=== PATIENT | male | born 1955 | race Caucasian/White ===

== ENCOUNTER 2019-01-26 09:06 | Inpatient (IN) ==
[2019-01-26 09:41] LABS: Basophils # (auto) 0.07 K/uL (0-0.2); Eosinophils # (auto) 0.21 K/uL (0-0.5); Eosinophils % (auto) 2.9 %; Hematocrit (blood only) 34.2 % (42-52); Hemoglobin 12.9 g/dL (14.0-18.0); Immature Granulocytes # (auto) 0.02 K/uL (0.00-0.02); Immature Granulocytes % (auto) 0.3 %; Lymphocytes # (auto) 2.03 K/uL (1.2-3.4); Mean Corpuscular Hemoglobin 31.9 pg (25-34); Mean Corpuscular Hgb Conc 37.7 g/dL (32-36); Mean Corpuscular Volume 84.4 fL (80-100); Mean Platelet Volume 10.2 fL (7.4-10.4); Monocytes % (auto) 9.7 %; Neutrophils # (auto) 4.21 K/uL (1.4-6.5); Neutrophils % (auto) 58.1 %; Platelet Count 150 K/uL (130-400); RDW Coefficient of Variation 14.1 % (11.5-14.5); RDW Standard Deviation 43.1 fL (36.4-46.3); Red Blood Count 4.05 M/uL (4.7-6.1); White Blood Count 7.24 K/uL (4.8-10.8)
--- NOTE | 2019-01-26 09:46 | Emergency Department Note ---
Entered by Angie Young acting as a scribe for Justin Sutton DO History of Present Illness General Chief complaint: Vomiting Stated complaint: DIZZY - THROWING UP Source: patient History of Present Illness Onset (ago): week(s) 2 Location: head Pain Consistency: + other (persistently) Quality: + other (dizziness) Exacerbated By: + movement (of head) Associated symptoms: + nausea/vomiting, + weakness (negative in arms and legs) and + other (positive increased sleeping; negative diarrhea; negative numbness in arms or legs); no chest pain and no shortness of breath Patient is a is a 63-year-old male with a past medical history of CVA and diabetes on Plavix who had a stroke in May. He notes that in between then he had a TAVR performed at [facility] in [place]. He has been dizzy persistently for the past 2 weeks which is worse with movement of his head. He was seen in the [facility] and diagnosed with another stroke. He notes that he has been very weak over the same time. He has been sleeping much more. The patient reports nausea and vomiting. He denies any chest pain shortness of breath or diarrhea. No other weakness or numbness in his arms or legs. Dizziness has been unchanged in any way since the systems. Home Medications Home Medications Medication Instructions Recorded Confirmed Type atorvastatin [Lipitor] 80 mg PO DAILY 01/26/19 01/26/19 History clopidogrel [Plavix] 75 mg PO DAILY 01/26/19 01/26/19 History fluoxetine 10 mg PO DAILY 01/26/19 01/26/19 History glyburide 2.5 mg PO BID 01/26/19 01/26/19 History hydralazine 50 mg PO TID 01/26/19 01/26/19 History meclizine 25 mg PO Q6H PRN 01/26/19 01/26/19 History metformin 500 mg PO BID 01/26/19 01/26/19 History metoprolol tartrate 25 mg PO BID 01/26/19 01/26/19 History risperidone 0.5 mg PO DAILY 01/26/19 01/26/19 History Allergies Allergy/AdvReac Type Severity Reaction Status Date / Time oxycodone Allergy Confusion Unverified 01/26/19 10:16 Past Med/Surg History Medical History Family History Mother Myocardial infarction Father Myocardial infarction Other No pertinent family history in first degree relatives Social History Preferred Language: Yoruba Communication Ability: Effective Beliefs That Will Affect Care: None Current Living Situation: Alone Other Information That Helps Us Care for You: No Feels Safe at Home: Yes Smoking Status: Former smoker Do You Dip or Chew Tobacco: No ; Number of Years Since Quit: 40 ; Second Hand Exposure: No ; Tobacco Cessation Education Requested by Patient: No Hx Alcohol Use: Yes Hx Substance Use: No Review of Systems See HPI for pertinent positives & negatives. and A total of 10 systems reviewed and were otherwise negative Physical Exam Vital Signs Vital Signs - 24 hr 01/26/19 09:12 01/26/19 09:23 01/26/19 09:30 Temperature 36.9 C Temperature Source Oral Sepsis Recent Fever Within 48 Hours No Sepsis New/Unexplained Change in Mental Status No Sepsis Action Taken by Nursing No Action Required Pulse Rate 77 Pulse Rate [Finger] 70 Respiratory Rate 20 16 Respiratory Effort / Characteristics Non-Labored Respiratory Depth Normal Blood Pressure 162/96 H Blood Pressure [Left Arm] 158/94 H Blood Pressure Mean 118 Blood Pressure Mean [Left Arm] 115 Pulse Oximetry 97 97 98 Oxygen Delivery Method Room Air Room Air Room Air 01/26/19 10:33 01/26/19 11:07 01/26/19 12:00 Temperature Temperature Source Sepsis Recent Fever Within 48 Hours Sepsis New/Unexplained Change in Mental Status Sepsis Action Taken by Nursing Pulse Rate 63 60 Pulse Rate [Finger] 74 Respiratory Rate 18 14 17 Respiratory Effort / Characteristics Respiratory Depth Blood Pressure 177/89 H Blood Pressure [Left Arm] 138/96 Blood Pressure Mean 118 Blood Pressure Mean [Left Arm] 110 Pulse Oximetry 99 95 98 Oxygen Delivery Method Room Air Room Air 01/26/19 12:30 01/26/19 13:00 01/26/19 13:30 Temperature Temperature Source Sepsis Recent Fever Within 48 Hours Sepsis New/Unexplained Change in Mental Status Sepsis Action Taken by Nursing Pulse Rate 67 59 L 62 Pulse Rate [Finger] Respiratory Rate 13 14 16 Respiratory Effort / Characteristics Respiratory Depth Blood Pressure 190/113 H 188/109 H 199/117 H Blood Pressure [Left Arm] Blood Pressure Mean 138 135 144 Blood Pressure Mean [Left Arm] Pulse Oximetry 98 97 98 Oxygen Delivery Method Room Air Room Air Room Air 01/26/19 13:41 Temperature Temperature Source Sepsis Recent Fever Within 48 Hours Sepsis New/Unexplained Change in Mental Status Sepsis Action Taken by Nursing Pulse Rate Pulse Rate [Finger] 57 L Respiratory Rate 20 Respiratory Effort / Characteristics Respiratory Depth Blood Pressure Blood Pressure [Left Arm] Blood Pressure Mean Blood Pressure Mean [Left Arm] Pulse Oximetry 98 Oxygen Delivery Method Room Air GENERAL: Sitting up in bed, talking in full sentences, alert, well appearing, well nourished, no distress, non-toxic EYE EXAM: normal conjunctiva PERRL and EOM's grossly intact OROPHARYNX: no exudate, no erythema, lips, buccal mucosa, and tongue normal and mucous membranes are moist NECK: supple, no nuchal rigidity, no adenopathy, non-tender LUNGS: Clear to auscultation. Normal chest wall mechanics HEART: no murmurs, S1 normal and S2 normal ABDOMEN: abdomen soft, minimal tenderness, normo-active bowel sounds, no masses, no rebound or guarding. BACK: Back is symmetrical on inspection and there is no deformity, no midline tenderness, no CVA tenderness. SKIN: no rashes and no bruising UPPER EXTREMITIES: upper extremities are grossly normal. LOWER EXTREMITIES: No pitting edema. NEURO EXAM: Normal sensorium, cranial nerves II-XII intact, normal speech, no weakness of arms, no weakness of legs. No drift. Finger to nose intact. Gross sensation intact. Course ED COURSE: Vital signs were reviewed and showed hypertensive. The patients medical record was reviewed The above diagnostic studies were performed and reviewed. ED treatments and interventions as stated above. 0939: The patient was evaluated in room B11B. A complete history and physical examination was performed. 1134: Upon reevaluation, the patient is resting comfortably. I discussed my findings with the patient and he understands and agrees with the treatment plan. Based on the patients age, coexisting illnesses, exam and lab findings the decision to treat as an inpatient was made. The patient remained stable while under my care. 1142: I discussed the case with Dr. [facility] Hospitalist who accepts the patient for further evaluation. Administered Medications Hydralazine HCl (Apresoline) 50 mg PO TID EUGENE Stop: 02/25/19 13:59 Last Admin: 01/26/19 13:44 Dose: 50 mg Documented by: [id number] Ioversol (Optiray 320 100ml) 93 ml IV ONCE PRN PRN Reason: Interaction Checking Stop: 01/30/19 10:55 Last Admin: 01/26/19 10:56 Dose: 93 ml Documented by: [id number] Metoprolol Tartrate (Lopressor) 25 mg PO BID EUGENE Stop: 02/25/19 13:24 Last Admin: 01/26/19 13:47 Dose: Not Given Documented by: [id number] Discontinued Medications Sodium Chloride (Nss 1000ml) 1,000 mls @ 999 mls/hr IV .Q1H1M ONE Stop: 01/26/19 12:33 Last Infusion: 01/26/19 13:00 Dose: 0 mls/hr Documented by: [id number] Admin: 01/26/19 11:41 Dose: 999 mls/hr Documented by: [id number] Medical Decision Making Differential Diagnosis Differential Diagnosis includes but is not limited to ischemic Stroke, hemorrhagic stroke, bells palsy, mass, neoplasm, migraine headache, seizure, subarachnoid hemorrhage, TIA, and transient global amnesia. Medical Records Attestation: I reviewed the patient's medical records. Home Medications Current Medication List: was personally reviewed by me Laboratory Data Attestation: I reviewed the patient's lab results. Result diagrams: 01/26/19 09:30 01/26/19 09:30 Lab Results 01/26/19 01/26/19 01/26/19 Range/Units 09:30 09:30 09:30 WBC 7.24 (4.8-10.8) K/uL RBC 4.05 L (4.7-6.1) M/uL Hgb 12.9 L (14.0-18.0) g/dL Hct 34.2 L (42-52) % MCV 84.4 (80-100) fL MCH 31.9 (25-34) pg MCHC 37.7 H (32-36) g/dL RDW Std Deviation 43.1 (36.4-46.3) fL RDW Coeff of Taina 14.1 (11.5-14.5) % Plt Count 150 (130-400) K/uL MPV 10.2 (7.4-10.4) fL Immature Gran % (Auto) 0.3 % Neut % (Auto) 58.1 % Lymph % (Auto) 28.0 % Ector % (Auto) 9.7 % Eos % (Auto) 2.9 % Baso % (Auto) 1.0 % Immature Gran # (Auto) 0.02 (0.00-0.02) K/uL Neut # (Auto) 4.21 (1.4-6.5) K/uL Lymph # (Auto) 2.03 (1.2-3.4) K/uL Ector # (Auto) 0.70 H (0.11-0.59) K/uL Eos # (Auto) 0.21 (0-0.5) K/uL Baso # (Auto) 0.07 (0-0.2) K/uL PT 10.8 (9.0-12.0) Seconds INR 1.1 (0.9-1.1) Sodium 135 L (136-145) mmol/L Potassium 4.6 (3.5-5.1) mmol/L Chloride 105 (98-107) mmol/L Carbon Dioxide 22 (21-32) mmol/L Anion Gap 8.0 (3-11) BUN 26 H (7-18) mg/dl Creatinine 1.28 (0.6-1.4) mg/dl Est Cr Clr Drug Dosing 60.6 ml/min Est GFR ( Amer) 67.6 Est GFR (Non-Af Amer) 58.3 BUN/Creatinine Ratio 20.4 H (10-20) Glucose 302 H* (70-99) mg/dl POC Glucose (70-99) Calcium 10.4 H (8.5-10.1) mg/dl Total Bilirubin 1.5 H (0.2-1) mg/dl AST 23 (15-37) U/L ALT 41 (12-78) U/L Alkaline Phosphatase 125 H (45-117) U/L Troponin I (0-0.045) ng/ml Total Protein 7.9 (6.4-8.2) gm/dl Albumin 4.1 (3.4-5.0) gm/dl Globulin 3.8 (2.5-4.0) gm/dl Albumin/Globulin Ratio 1.1 (0.9-2) Lipase 2391 H (73-393) U/L Beta-Hydroxybutyric Acd 1.92 (0.2-2.81) mg/dl Urine Color Urine Appearance (Clear) Urine pH (4.5-7.5) Ur Specific Cornelia (1.000-1.030) Urine Protein (Negative) Urine Glucose (UA) (Negative) Urine Ketones (Negative) Urine Blood (Negative) Urine Nitrite (Negative) Urine Bilirubin (Negative) Urine Urobilinogen (Negative) Ur Leukocyte Esterase (Negative) Urine WBC (Auto) (0-5) /hpf Urine RBC (Auto) (0-4) /hpf U Hyaline Cast (Auto) (0-5) /lpf U Epithel Cells (Auto) (0-5) /lpf Urine Bacteria (Auto) (Negative) 01/26/19 01/26/19 01/26/19 Range/Units 09:30 11:30 11:37 WBC (4.8-10.8) K/uL RBC (4.7-6.1) M/uL Hgb (14.0-18.0) g/dL Hct (42-52) % MCV (80-100) fL MCH (25-34) pg MCHC (32-36) g/dL RDW Std Deviation (36.4-46.3) fL RDW Coeff of Taina (11.5-14.5) % Plt Count (130-400) K/uL MPV (7.4-10.4) fL Immature Gran % (Auto) % Neut % (Auto) % Lymph % (Auto) % Ector % (Auto) % Eos % (Auto) % Baso % (Auto) % Immature Gran # (Auto) (0.00-0.02) K/uL Neut # (Auto) (1.4-6.5) K/uL Lymph # (Auto) (1.2-3.4) K/uL Ector # (Auto) (0.11-0.59) K/uL Eos # (Auto) (0-0.5) K/uL Baso # (Auto) (0-0.2) K/uL PT (9.0-12.0) Seconds INR (0.9-1.1) Sodium (136-145) mmol/L Potassium (3.5-5.1) mmol/L Chloride (98-107) mmol/L Carbon Dioxide (21-32) mmol/L Anion Gap (3-11) BUN (7-18) mg/dl Creatinine (0.6-1.4) mg/dl Est Cr Clr Drug Dosing ml/min Est GFR ( Amer) Est GFR (Non-Af Amer) BUN/Creatinine Ratio (10-20) Glucose (70-99) mg/dl POC Glucose 274 H (70-99) Calcium (8.5-10.1) mg/dl Total Bilirubin (0.2-1) mg/dl AST (15-37) U/L ALT (12-78) U/L Alkaline Phosphatase (45-117) U/L Troponin I < 0.015 (0-0.045) ng/ml Total Protein (6.4-8.2) gm/dl Albumin (3.4-5.0) gm/dl Globulin (2.5-4.0) gm/dl Albumin/Globulin Ratio (0.9-2) Lipase (73-393) U/L Beta-Hydroxybutyric Acd (0.2-2.81) mg/dl Urine Color Yellow Urine Appearance Clear (Clear) Urine pH 5.0 (4.5-7.5) Ur Specific Cornelia > 1.045 H (1.000-1.030) Urine Protein Trace H (Negative) Urine Glucose (UA) 3+ H (Negative) Urine Ketones Negative (Negative) Urine Blood Negative (Negative) Urine Nitrite Negative (Negative) Urine Bilirubin Negative (Negative) Urine Urobilinogen Negative (Negative) Ur Leukocyte Esterase Negative (Negative) Urine WBC (Auto) 1-5 (0-5) /hpf Urine RBC (Auto) 0-4 (0-4) /hpf U Hyaline Cast (Auto) 1-5 (0-5) /lpf U Epithel Cells (Auto) 10-20 H (0-5) /lpf Urine Bacteria (Auto) Negative (Negative) Imaging Data Radiologist's Impression: Radiology results as stated below per my review and the radiologist's interpretation: CT head/brain wo con CLINICAL HISTORY: Dizziness. History of prior stroke. COMPARISON STUDY: No previous studies for comparison. TECHNIQUE: Axial CT of the brain is performed from the vertex to the skull base. IV contrast was not administered for this examination. A dose lowering technique was utilized adhering to the principles of ALARA. CT DOSE: 537.48 mGy.cm FINDINGS: No intra or extra-axial mass lesions are visualized. There is no CT evidence of acute cortical infarction. There is no evidence of midline shift. There is no acute hemorrhage. There are patchy white matter hypodensities likely on a small vessel basis. Th ere is an old left temporal lobe infarct. There is no evidence of pathologic ventricular dilatation. There is no evidence of acute sinusitis. There are postsurgical changes of a right frontal craniotomy. IMPRESSION: 1. Postsurgical changes of a prior right frontal craniotomy 2. Old left temporal lobe infarct 3. No acute intracranial findings Electronically signed by: Romain Olvera M.D. 01/26/2019 10:[address] abd pelvis IV con only CLINICAL HISTORY: Vomiting. Pancreatitis. UPPER ABDOMINAL PAIN COMPARISON STUDY: None. TECHNIQUE: The patient was scanned in a dynamic helical fashion during intravenous administration of 93 cc of Optiray 320. A dose lowering technique was utilized adhering to the principles of ALARA. CT DOSE: 613.32 mGy.cm FINDINGS: Lower chest: There is an aortic valve replacement. There are no significant pleural effusions. There are a few tiny subpleural nodules. In a low risk patient no further follow-up is indicated. There is a left lower lobe calcified granuloma. Liver: The contrast-enhanced liver is normal in size, contour, and attenuation. There is no intrahepatic biliary ductal dilatation. The hepatic veins and portal veins are patent. Gallbladder: Unremarkable. Spleen: The spleen is borderline enlarged measuring 22.2 cm Pancreas: The pancreatic duct is at the upper limits of normal in diameter. There is a 19 mm low-density pancreatic head lesion. There is mild infiltration of the fat surrounding the pancreatic head consistent with pancreatitis. It is not possible to determine whether pancreatic head lesion is neoplastic or inflammatory. Endoscopic ultrasound should be considered in follow-up. Adrenal glands: Unremarkable. Kidneys: There are bilateral hypodense renal lesions consistent with cysts. In addition there is an area of subtle diminished attenuation involving the upper pole left kidney. Although indeterminate, this does not appear masslike. Short- term follow-up is however warranted. Bowel: There are no transition zones indicate bowel obstruction. There is no evidence of acute diverticulitis. The appendix appears normal. Peritoneum: There is no intraperitoneal free air or abdominal ascites. Vasculature: The abdominal aorta is normal in course and caliber. Adenopathy: None. Pelvic viscera: The bladder, and pelvic viscera are unremarkable. Skeletal structures: No destructive osseous lesions are seen. IMPRESSION: 1. Mild infiltration of the fat surrounding the pancreatic head, consistent with the clinical history of pancreatitis 2. 19 mm hypodense pancreatic head lesion, neoplastic versus inflammatory. GI consultation for consideration of endoscopic ultrasound follow-up recommended 3. Pancreatic duct at the upper limits of normal in diameter 4. Borderline splenomegaly 5. No evidence of bowel obstruction. No evidence of free air 6. Subtle nonmass-like area of decreased attenuation involving the upper pole of the left kidney. This finding is of uncertain significance. Likely diagnostic considerations include focal pyelonephritis, sequela of prior infarct, or less likely neoplastic process. This finding should be reevaluated on subsequent scans. Electronically signed by: Romani Olvera M.D. 01/26/2019 11:24 AM ECG Data Attestation: I personally reviewed and interpreted this ECG as follows: Indication: weakness Rate (beats per minute): 70 Rhythm: sinus rhythm Findings: + other (normal intervals), + RBBB and + left axis deviation; no PVC Comparison ECG Date: no prior available Blood Pressure Blood Pressure Findings: Elevated blood pressure Blood Pressure Disposition: further management by hospitalist CLAUDETTE Narrative Patient is a 63-year-old male with past medical history of 2 recent strokes who presents the ER for dizziness which is been present for the past 2 months. He was evaluated at [place] a month ago and diagnosed with a new stroke. He is completely neurologically intact at this time. He admits to abdominal pain and vomiting. He was remarkably hypertensive. IV was established blood work was obtained showed no significant leukocytosis or anemia. INR unremarkable. BMP with hyperglycemia 302. Patient was given IV fluids and this trended down to 231. Calcium was elevated at 10.4. Bilirubin was slightly elevated at 1.5. Troponin was negative. Beta hydroxybutyric acid was negative. Lipase was elevated at 2400. UA was negative. CT abdomen pelvis shows pancreatitis with a pancreatic head mass. Do question cancer with the elevation in calcium but unclear at this time. Patient was given IV fluids and updated bedside. He was discussed with the hospitalist and admitted for further work-up. Impression & Plan Pancreatitis, Dizziness, HTN (hypertension), CVA (cerebral vascular accident), Abnormal CT scan, kidney Discharge Plan Visit Data *Final* Discharge Date/Time: 01/26/19 14:55 Chief Complaint: Vomiting Stated Complaint: DIZZY - THROWING UP ED Provider: Justin Sutton Discharge Problem: Pancreatitis, Dizziness, HTN (hypertension), CVA (cerebral vascular accident), Abnormal CT scan, kidney Patient Disposition: Admitted As Inpatient Discharge Instructions Interventions: ED Discharge Assessment Last Done: 01/26/19 14:55 The scribe's documentation has been prepared under my direction and personally reviewed by me in its entirety. I confirm that the note above accurately reflects all work, treatment, procedures, and medical decision making performed by me.
--- NOTE | 2019-01-26 10:08 | CT Scan Report ---
CT head/brain wo con CLINICAL HISTORY: Dizziness. History of prior stroke. COMPARISON STUDY: No previous studies for comparison. TECHNIQUE: Axial CT of the brain is performed from the vertex to the skull base. IV contrast was not administered for this examination. A dose lowering technique was utilized adhering to the principles of ALARA. CT DOSE: 537.48 mGy.cm FINDINGS: No intra or extra-axial mass lesions are visualized. There is no CT evidence of acute cortical infarc tion. There is no evidence of midline shift. There is no acute hemorrhage. There are patchy white matter hypodensities likely on a small vessel basis. There is an old left temp oral lobe infarct. There is no evidence of pathologic ventricular dilatation. There is no evidence of acute sinusitis. There are postsurgical changes of a right frontal craniotomy . IMPRESSION: 1. Postsurgical changes of a prior right frontal craniotomy 2. Old left temporal lobe infarct 3. No acute intracranial findings Electronically signed by: Romain Olvera M.D. 01/26/2019 10:07 AM
[2019-01-26 10:25] LABS: Albumin Globulin Ratio 1.1 (0.9-2); Albumin Level 4.1 gm/dl (3.4-5.0); BUN Creatinine Ratio 20.4 (10-20); Bilirubin,Total 1.5 mg/dl (0.2-1); Calcium 10.4 mg/dl (8.5-10.1); Creatinine Clr Calc Pharmacy 60.6 ml/min; Est GFR (African American) 67.6; Est GFR (Non-African American) 58.3; Globulin 3.8 gm/dl (2.5-4.0); Potassium 4.6 mmol/L (3.5-5.1); Total Protein 7.9 gm/dl (6.4-8.2)
[2019-01-26 10:38] LABS: Beta-Hydroxybutyrate 1.92 mg/dl (0.2-2.81)
[2019-01-26] MEDS ORDERED: IOVERSOL 100ml IV PRN (10:56)
[2019-01-26 11:19] LABS: INR 1.1 (0.9-1.1); Prothrombin Time 10.8 Seconds (9.0-12.0)
--- NOTE | 2019-01-26 11:26 | CT Scan Report ---
CT abd pelvis IV con only CLINICAL HISTORY: Vomiting. Pancreatitis. UPPER ABDOMINAL PAIN COMPARISON STUDY: None. TECHNIQUE: The patient was scanned in a dynamic helical fashion during intravenous administration of 93 cc of Optiray 320. A dose lowering technique was utilized adhering to the principles of ALARA. CT DOSE: 613.32 mGy.cm FINDINGS: Lower chest: There is an aortic valve replacement. There are no significant pleural effusions. There are a few tiny subpleural nodules. In a low risk patient no further follow-up is indicated. There is a left lower lobe calcified granuloma. Liver: The contrast-enhanced liver is normal in size, contour, and attenuation. There is no intrahepa tic biliary ductal dilatation. The hepatic veins and portal veins are patent. Gallbladder: Unremarkable. Spleen: The spleen is borderline enlarged measuring 22.2 cm Pancreas: The pancreatic duct is at the upper limits of normal in diameter. There is a 19 mm low-dens ity pancreatic head lesion. There is mild infiltration of the fat surrounding the pancreatic head con sistent with pancreatitis. It is not possible to determine whether pancreatic head lesion is neoplast ic or inflammatory. Endoscopic ultrasound should be considered in follow-up. Adrenal glands: Unremarkable. Kidneys: There are bilateral hypodense renal lesions consistent with cysts. In addition there is an a rafael of subtle diminished attenuation involving the upper pole left kidney. Although indeterminate, th is does not appear masslike. Short-term follow-up is however warranted. Bowel: There are no transition zones indicate bowel obstruction. There is no evidence of acute divert iculitis. The appendix appears normal. Peritoneum: There is no intraperitoneal free air or abdominal ascites. Vasculature: The abdominal aorta is normal in course and caliber. Adenopathy: None. Pelvic viscera: The bladder, and pelvic viscera are unremarkable. Skeletal structures: No destructive osseous lesions are seen. IMPRESSION: 1. Mild infiltration of the fat surrounding the pancreatic head, consistent with the clinical history of pancreatitis 2. 19 mm hypodense pancreatic head lesion, neoplastic versus inflammatory. GI consultation for consid eration of endoscopic ultrasound follow-up recommended 3. Pancreatic duct at the upper limits of normal in diameter 4. Borderline splenomegaly 5. No evidence of bowel obstruction. No evidence of free air 6. Subtle nonmass-like area of decreased attenuation involving the upper pole of the left kidney. Thi s finding is of uncertain significance. Likely diagnostic considerations include focal pyelonephritis , sequela of prior infarct, or less likely neoplastic process. This finding should be reevaluated on subsequent scans. Electronically signed by: Romain Olvera M.D. 01/26/2019 11:24 AM
[2019-01-26] MEDS ORDERED: SODIUM CHLORIDE 0.9% 1000ML 1,000 ML IV ONE (11:33)
[2019-01-26 11:43] LABS: Appearance Urine Clear (Clear); Bacteria Urine Automated Negative (Negative); Bilirubin Urine Negative (Negative); Blood Urine Negative (Negative); Color Urine Yellow; Glucose Urine UA 3+ (Negative); Ketones Urine Negative (Negative); Leukocyte Esterase Urine Negative (Negative); Nitrite Urine Negative (Negative); Protein Urine Trace (Negative); RBC Urine Automated 0-4 /hpf (0-4); Specific Gravity Urine > 1.045 (1.000-1.030); Urobilinogen Urine Negative (Negative)
[2019-01-26] MEDS: HydrALAZINE TAB 50 MG TAB PO SCH ×2 (13:44→21:37)
[2019-01-26] MEDS: METOPROLOL TARTRATE 25 MG TAB PO SCH ×2 (13:47→21:54)
--- NOTE | 2019-01-26 13:47 | History & Physical Report ---
Date of Service January 26, 2019 Assessment & Plan (1) Pancreatitis: Noted on CTAP Lipase elevated c/w n/v, however pt has not had abd pain Head of pancreas appears abn, but cannot be well visualized and will need EUS once pt is improved NPO, IVF (2) Dizziness: Uncertain etiology Certainly could be a new CVA, however less likely given plavix use CT head neg for acute, MRI pending Possible Wernicke's given hx of consistent alcohol use Start thiamine, Mg, folic acid B1, B12 pending TSH pending Lyme pending--tested early on in sx but may have been prior to seroconversion t/c neuro c/s (3) HTN (hypertension): Labile in the ED in the setting of missed AM meds Could be contributing to sx given pt was in the 190s systolic Give AM meds now and monitor (4) Abnormal CT scan, kidney: UA WNL Renal US pending (5) CVA (cerebral vascular accident): Somewhat recent event, 05/2018 ?? repeat event last month Will continue plavix (6) Hyperlipidemia: holding statin (7) DM type 2 (diabetes mellitus, type 2): Holding PO meds given above SSI PRN A1c pending (8) Anxiety: continue home meds (9) DVT prophylaxis: SCDs History of Present Illness Primary Care Provider: NO PCP 63 y/o M with several complaints. Pt states he has been having progressive "dizziness" since November. He has difficulty describing this, but it is not lightheaded or double vision or room spinning. It is more of a feeling of pulling to the L. When he is sitting or lying, this does not happen, but with any standing or walking he feels unbalanced to the L. Denies any weakness in LE. Pt was sitting on the edge of the bed during discussion and he had this sensation while sitting, which was new. He moved to lying in the bed and in improved. He had no other sx with this other than mild nausea w/o emesis. Also during this time, pt has had worsening n/v. He states he eats without issue on some days, but several days a week he has n/v that is sometimes associated with PO intake and sometime not at all. His overall appetite and PO intake are low recently. He is unable to sleep. Pt denies fever, SOB, chest pain, abd pain, c/d, LE pain or swelling. No urinary sx or flank pain. Denies spotty vision or inability to see peripheral vision. Denies L sided neglect. Pt was dx with CVA 05/2018. These sx are different from that episode. He was put on plavix at that time and has been compliant. He was seen as an outpt in [place] about 2 weeks into the start of these new sx and was checked for Lyme, which was neg. He was admitted to [facility] last month for these sx and told that he had a stroke, but they did not know when. He states he had a CT but no MRI at that time. Pt missed his AM BP medications today. Pt states he has had no alcohol since he started having issues with dizziness. He denies heavy drinking, but does state that prior to this he would have 2 beers every day and has done that for many years. Prior to onset of sx, pt spent a lot of time outside. Allergies Allergy/AdvReac Type Severity Reaction Status Date / Time oxycodone Allergy Confusion Unverified 01/26/19 10:16 Home Medications Home Medications Medication Instructions Recorded Confirmed Type atorvastatin [Lipitor] 80 mg PO DAILY 01/26/19 01/26/19 History clopidogrel [Plavix] 75 mg PO DAILY 01/26/19 01/26/19 History fluoxetine 10 mg PO DAILY 01/26/19 01/26/19 History glyburide 2.5 mg PO BID 01/26/19 01/26/19 History hydralazine 50 mg PO TID 01/26/19 01/26/19 History meclizine 25 mg PO Q6H PRN 01/26/19 01/26/19 History metformin 500 mg PO BID 01/26/19 01/26/19 History metoprolol tartrate 25 mg PO BID 01/26/19 01/26/19 History risperidone 0.5 mg PO DAILY 01/26/19 01/26/19 History Past Med/Surg History Medical History CVA (cerebral vascular accident) Family History Mother Myocardial infarction Father Myocardial infarction Other No pertinent family history in first degree relatives Social History Feels Safe at Home: Yes Smoking Status: Former smoker Number of Years Since Quit: 40 ; Hx Alcohol Use: Yes (2 beers per day for many years, none x2 months) Hx Substance Use: No Review of Systems Review of Systems: Pertinent positives and negatives reviewed in HPI--all others negative Physical Exam Constitutional: WD/WN, vitals as above Eyes: normal visual rene by confrontation and + anicteric sclerae Neck: normal visual inspection and trachea midline Respiratory: normal respiratory effort, lungs clear to auscultation Cardiovascular: Rate/Rhythm: regular rate and regular rhythm Gastrointestinal (Abdomen): Inspection/Auscultation: abdomen not distended Percussion/Palpation: abdomen soft; abdomen nontender Musculoskeletal: Head/Neck/Chest: normocephalic and head atraumatic negative for edema, peripheral pulses intact Skin: no rashes, warm and dry Neurologic: CN's II-XI intact bilaterally and awake; not confused Speech / Cognition: normal speech While sitting on edge of bed, pt started to list to the L and had to balance himself Psychiatric: A+Ox3, euthymic affect Results & Data Vital Signs (Past 12 Hours) Vital Signs Temp Pulse Pulse Resp BP BP Pulse Ox 01/26/19 13:41 57 L 20 98 01/26/19 13:30 62 16 199/117 H 98 01/26/19 13:00 59 L 14 188/109 H 97 01/26/19 12:30 67 13 190/113 H 98 01/26/19 12:00 60 17 177/89 H 98 01/26/19 11:07 63 14 95 01/26/19 10:33 74 18 138/96 99 01/26/19 09:30 98 01/26/19 09:23 70 16 158/94 H 97 01/26/19 09:12 36.9 C 77 20 162/[address] head: old L temporal infarct Code Status & VTE Plan Code Status Full code VTE Prophylaxis Plan VTE Prophylaxis will be ordered: Yes PG Care Time/CCT Total # of Minutes Spent Total Time Spent with Patient: Total time spent is greater than 50% in coordination of care (as documented) at patient's floor/unit and/or counseling patient: (1) Pancreatitis Chronicity: acute
[2019-01-26] MEDS ORDERED: GLUCOSE 40% GEL 15 GM TUBE PO PRN (15:58)
[2019-01-26] MEDS ORDERED: CARBOHYDRATES FOR HYPOGLYCEMIA PO PRN (15:58)
[2019-01-26] MEDS ORDERED: GLUCAGON FOR INJ 1 MG VIAL SQ PRN (15:58)
[2019-01-26] MEDS ORDERED: DEXTROSE 50% 50 ML SYRINGE IV PRN (15:58)
[2019-01-26] MEDS ORDERED: THIAMINE HCL IV STA (15:58)
[2019-01-26] MEDS ORDERED: MAGNESIUM HYDROXIDE SUSP 30 ML UDC PO PRN (15:58)
[2019-01-26] MEDS ORDERED: MECLIZINE HCL 25 MG TAB PO PRN (15:58)
[2019-01-26] MEDS ORDERED: ACETAMINOPHEN 325 MG TAB PO PRN (15:58)
[2019-01-26] MEDS ORDERED: ONDANSETRON INJ 2 MG/ML 2 ML VIAL IV PRN (15:58)
[2019-01-26] MEDS ORDERED: GLUCOSE 10 TABS/TUBE PO PRN (15:58)
[2019-01-26] MEDS ORDERED: FOLIC ACID 1 MG in SYRINGE 9.8 ML IV ONE (16:15)
[2019-01-26] MEDS ORDERED: THIAMINE HCL 250 MG in SODIUM CHLORIDE 0.9% 50 ML IV ONE (16:15)
[2019-01-26 16:46] LABS: Lyme Ab IgG w/WB Rflx Negative (Negative); Lyme Ab IgM w/WB Rflx Negative (Negative)
--- NOTE | 2019-01-26 17:38 | Magnetic Resonance Report ---
MRI OF THE BRAIN WITHOUT CONTRAST CLINICAL HISTORY: dizziness COMPARISON STUDY: CT scan dated 01/26/2019 FINDINGS: Sagittal T1, axial diffusion, proton density and T2 weighted axial, coronal FLAIR, and axial T1-weigh geoffrey images were acquired. No intra or extra-axial mass lesions are visualized There is a 3 mm focus of restricted water diffusion within the right cerebellar hemisphere consistent with a tiny acute/subacute infarct. There is a 3 mm focus of restricted water diffusion within the l eft frontal white matter consistent with an acute/subacute infarct. There is a 3 mm focus of restrict ed water diffusion in the posterior aspect of the right external capsule, consistent with acute/subac layton infarct. The distribution raises the possibility of an embolic etiology. There is no evidence of ventricular dilatation. Proton density T2-weighted and FLAIR images reveal multiple old cerebellar infarcts. There is an old left temporal lobe infarct. There is an old left occipital lobe infarct. There is right frontal encep halomalacia subjacent to a craniotomy site. There is an old lacunar infarct in the right basal gangli a. There are scattered foci of increased T2 signal within the white matter likely small vessel basis. There are no abnormal flow voids. IMPRESSION: 1. Areas of old infarction/encephalomalacia involving the left occipital lobe and left temporal lobe 2. Evidence of prior right frontal craniotomy with subjacent right frontal lobe encephalomalacia 3. Multiple old lacunar infarcts most pronounced in the cerebellar hemispheres 4. Tiny acute/subacute infarcts involving the right cerebellar hemisphere, left frontal white matter, and posterior limb of the right external capsule Electronically signed by: Romain Olvera M.D. 01/26/2019 5:37 PM
--- NOTE | 2019-01-26 17:50 | Ultrasound Report ---
EXAMINATION: RENAL ULTRASOUND CLINICAL HISTORY: Abnormal CT scan COMPARISON STUDY: CT scan dated 01/26/2019 FINDINGS: The right kidney measures 10.5 cm. The left kidney measures 11.1 cm. There is no evidence of hydronephrosis. There is an 11 mm mid pole left renal cyst. This appears to contain a septation. No upper pole abnormalities are visualized. As stated in the prior CT scan report, the finding descri bed is best evaluated on a subsequent CT scan. The bladder was nonvisualized and likely decompressed. IMPRESSION : 1. Septated 11 mm left renal cyst 2. No hydronephrosis 3. No upper pole left renal abnormalities identified to correspond to the subtle CT findings Electronically signed by: Romain Olvera M.D. 01/26/2019 5:49 PM
[2019-01-26] MEDS: MAGNESIUM SULFATE / D5W 1 GM/100 ML BAG IV SCH ×2 (18:19→19:48)
[2019-01-26] MEDS: SODIUM CHLORIDE 0.45 % 1,000 ML IV SCH (18:20)
[2019-01-26] MEDS: INSULIN ASPART 100 UNITS/ML 3 ML PEN SC SCH ×2 (18:20→21:37)
[2019-01-27] MEDS: SODIUM CHLORIDE 0.45 % 1,000 ML IV SCH (04:02)
--- NOTE | 2019-01-27 07:50 | Family Medicine Progress Note ---
Date of Service January 27, 2019 Assessment & Plan (1) Pancreatitis: #Pancreatitis: Lipase elevated to 2300 on admission, admission CT abdomen pelvis demonstrated pancreatitis. This is consistent with the patient's nausea and vomiting, patient was not endorsing significant abdominal pain on admission. Endorses epigastric pain on palpation. Head of pancreas appears abnormal, but cannot be well visualized and will need EUS once pt is improved -NPO, IVF with LR at 150 -Pain control as needed with acetaminophen #Abnormal pancreatic findings on CT Admission CT abdomen pelvis demonstrated abnormal appearing head of the pancreas, was not well-visualized, concerning for benign mass versus malignancy. -Consulted gastroenterology for recommendations regarding mass -Gallbladder ultrasound pending #Dizziness: Uncertain etiology, with patient's prior history certainly could be a new CVA, however less likely given plavix use. Lyme negative TSH within normal limits. CT head neg for acute finding.MRI demonstrates areas of old infarction and encephalomalacia involving the left occipital lobe and left temporal lobe. Evidence of a prior right frontal craniotomy with subjacent right frontoparietal lobe encephalomalacia. Multiple old lacunar infarcts most pronounced in the cerebellar hemispheres. Tiny acute subacute infarcts involving the right cerebellar hemisphere, left frontal white matter, and posterior limb of the right internal capsule. -Given patient's presentation and MRI findings consulted neurology appreciate recommendations -Patient has a history of chronic alcohol use start thiamine, Mg, folic acid -B1 pending -B12 low normal 1000 mcg IM then 1000 mcg daily oral #CVA (cerebral vascular accident): Somewhat recent event, 05/2018, recently hospitalized in 2 boy and diagnosed with a repeat event. Given current presentation, and medical history there is a concern that he has had a repeat acute event. -Neuro consulted appreciate recommendations -continue plavix -Complete stroke work-up, obtain echo, obtain carotid Dopplers #HTN (hypertension): Labile in the ED in the setting of missed AM medsCould be contributing to sx given pt was in the 190s systolic -Patient skipped meds yesterday, this morning blood pressure responded to meds -Continue home hydralazine 50 p.o. 3 times daily, metoprolol 25 mg p.o. twice daily #Abnormal CT scan, kidney: UA WNL, renal ultrasound demonstrated 11 mm cyst otherwise within normal limits #Hyperlipidemia: holding statin in setting of pancreatitis #DM type 2 (diabetes mellitus, type 2): Holding PO meds given above -A1c 7.4 -Glycemic consult placed #Anxiety: continue home meds FENa: N.p.o. for now, will advance diet tomorrow Code Status: Full code DVT PPX: SCDS PT/OT: Not indicated Dispo: PCU Alexandre Bowers MD PGY 2, FCM This chart was completed utilizing [employer] voice recognition software. Grammatical errors, random word insertions, pronoun errors, and in complete sentences are an occasional consequence of the system. Any questions or concerns about the content, text, or information contained within the body of this dictation should be addressed directly to the physician for clarification. Supervising Physician Co-Signing Physician Notes Patient seen and examined with Dr. Bowers. I agree with their exam findings, review of systems, assessment and plan. I have personally reviewed the lab work and imaging from today. patient c/o some nausea but no abdominal pain, does not have an appetite, no fever still with some leaning to the left, has been going on for weeks, denies vertigo, just off balance reviewed MRI brain with findings of acute/subacute CVA in both hemispheres d/w Dr. Holcomb with neurology, she is concerned about embolic strokes given bilateral findings on MRI, she recommends stroke work up appreciate note from Dr. Payne, plan for EUS as outpatient Exam: AAOx3, NAD, lungs CTA bilaterally, normal respiratory effort, heart regular S1 and S2, no murmurs, abdomen soft, NT, ND, +BS no focal neurological deficits on exam - Acute/Subacute ischemic CVA, based on MRI brain findings stroke work up with lipid profile, echo, carotid doppler consider embolic source, may need outpatient monitoring if no afib seen while admitted - Acute pancreatitis: could be due to pancreatic lesion in head of pancreas no gall stones, denies heavy alcohol use but could be dishonest pancreatitis improving slowly, advance diet as tolerated - Pancreatic head lesion: will arrange for EUS outpatient Subjective Patient laying in bed this morning in no acute distress. Patient reports doing well overnight, has been n.p.o., slept well, voiding, stooling. Patient reports the subjective symptoms that caused him to present have improved significantly. He is no longer having significant abdominal pain, and his neuro symptoms are not as severe. Patient is eager for discharge. Acute concerns are related to brain imaging finding, and neurological symptoms otherwise,\ all questions answered Physical Exam Physical Exam: General: No acute distress HEENT: Normocephalic atraumatic Neck: Lots of extra skin Cardiac: Regular rate and rhythm, I did not appreciate any significant murmurs rubs or gallops, negative calf tenderness, negative pedal edema Respiratory: Clear to auscultation bilaterally with symmetrical chest rise I do not appreciate significant wheezes, rales, rhonchi GI: Bowel sounds present, tender to palpation in the epigastric region, otherwise nontender nondistended MSK: Moves all extremities Skin: Warm, dry, intact Neuro: Alert and oriented x3, did not know the building he was in, EOMI, PERRLA. CN II through XII grossly intact, Romberg positive, finger-nose intact, [id number] intact, some lag with rapid alternating movements, generally motor and sensory function intact, question whether is there is some element of cognitive delay Psych: Calm, cooperative Results & Data Vital Signs (Past 12 Hours) Vital Signs Temp Pulse Pulse Resp BP Pulse Ox 01/27/19 07:04 36.7 C 56 L 18 151/78 H 97 01/27/19 03:22 36.5 C 67 18 163/90 H 98 01/27/19 00:00 58 L 01/26/19 23:22 36.4 C L 57 L 19 151/83 H 96 Laboratory Results 01/27/19 01/27/19 01/27/19 Range/Units 07:09 07:05 07:05 WBC Pending (4.8-10.8) K/uL RBC Pending (4.7-6.1) M/uL Hgb Pending (14.0-18.0) g/dL Hct Pending (42-52) % MCV Pending (80-100) fL MCH Pending (25-34) pg MCHC Pending (32-36) g/dL RDW Std Deviation (36.4-46.3) fL RDW Coeff of [place] (11.5-14.5) % Plt Count Pending (130-400) K/uL MPV (7.4-10.4) fL Immature Gran % (Auto) % Neut % (Auto) % Lymph % (Auto) % [place] % (Auto) % Eos % (Auto) % Baso % (Auto) % Immature Gran # (Auto) (0.00-0.02) K/uL Neut # (Auto) (1.4-6.5) K/uL Lymph # (Auto) (1.2-3.4) K/uL [place] # (Auto) (0.11-0.59) K/uL Eos # (Auto) (0-0.5) K/uL Baso # (Auto) (0-0.2) K/uL PT (9.0-12.0) Seconds INR (0.9-1.1) Sodium Pending (136-145) mmol/L Potassium Pending (3.5-5.1) mmol/L Chloride Pending (98-107) mmol/L Carbon Dioxide Pending (21-32) mmol/L Anion Gap Pending (3-11) BUN Pending (7-18) mg/dl Creatinine Pending (0.6-1.4) mg/dl Est Cr Clr Drug Dosing Pending ml/min Est GFR ( Amer) Pending Est GFR (Non-Af Amer) Pending BUN/Creatinine Ratio Pending (10-20) Glucose Pending (70-99) mg/dl POC Glucose 238 H (70-99) Estimat Average Glucose mg/dl Hemoglobin A1c (4.5-5.6) % Calcium Pending (8.5-10.1) mg/dl Total Bilirubin Pending (0.2-1) mg/dl AST Pending (15-37) U/L ALT Pending (12-78) U/L Alkaline Phosphatase Pending (45-117) U/L Troponin I (0-0.045) ng/ml Total Protein Pending (6.4-8.2) gm/dl Albumin Pending (3.4-5.0) gm/dl Globulin Pending (2.5-4.0) gm/dl Albumin/Globulin Ratio Pending (0.9-2) Lipase Pending (73-393) U/L Whole Bld Vitamin B1 Vitamin B12 Beta-Hydroxybutyric Acd (0.2-2.81) mg/dl TSH (0.300-4.500) uIu/ml Urine Color Urine Appearance (Clear) Urine pH (4.5-7.5) Ur Specific [place] (1.000-1.030) Urine Protein (Negative) Urine Glucose (UA) (Negative) Urine Ketones (Negative) Urine Blood (Negative) Urine Nitrite (Negative) Urine Bilirubin (Negative) Urine Urobilinogen (Negative) Ur Leukocyte Esterase (Negative) Urine WBC (Auto) (0-5) /hpf Urine RBC (Auto) (0-4) /hpf U Hyaline Cast (Auto) (0-5) /lpf U Epithel Cells (Auto) (0-5) /lpf Urine Bacteria (Auto) (Negative) Lyme Disease IgG Ab (Negative) Lyme Disease IgM Ab (Negative) 01/27/19 01/27/19 01/27/19 Range/Units 07:05 07:05 07:05 WBC (4.8-10.8) K/uL RBC (4.7-6.1) M/uL Hgb (14.0-18.0) g/dL Hct (42-52) % MCV (80-100) fL MCH (25-34) pg MCHC (32-36) g/dL RDW Std Deviation (36.4-46.3) fL RDW Coeff of [place] (11.5-14.5) % Plt Count (130-400) K/uL MPV (7.4-10.4) fL Immature Gran % (Auto) % Neut % (Auto) % Lymph % (Auto) % [place] % (Auto) % Eos % (Auto) % Baso % (Auto) % Immature Gran # (Auto) (0.00-0.02) K/uL Neut # (Auto) (1.4-6.5) K/uL Lymph # (Auto) (1.2-3.4) K/uL [place] # (Auto) (0.11-0.59) K/uL Eos # (Auto) (0-0.5) K/uL Baso # (Auto) (0-0.2) K/uL PT (9.0-12.0) Seconds INR (0.9-1.1) Sodium (136-145) mmol/L Potassium (3.5-5.1) mmol/L Chloride (98-107) mmol/L Carbon Dioxide (21-32) mmol/L Anion Gap (3-11) BUN (7-18) mg/dl Creatinine (0.6-1.4) mg/dl Est Cr Clr Drug Dosing ml/min Est GFR ( Amer) Est GFR (Non-Af Amer) BUN/Creatinine Ratio (10-20) Glucose (70-99) mg/dl POC Glucose (70-99) Estimat Average Glucose 166 mg/dl Hemoglobin A1c 7.4 H (4.5-5.6) % Calcium (8.5-10.1) mg/dl Total Bilirubin (0.2-1) mg/dl AST (15-37) U/L ALT (12-78) U/L Alkaline Phosphatase (45-117) U/L Troponin I (0-0.045) ng/ml Total Protein (6.4-8.2) gm/dl Albumin (3.4-5.0) gm/dl Globulin (2.5-4.0) gm/dl Albumin/Globulin Ratio (0.9-2) Lipase (73-393) U/L Whole Bld Vitamin B1 Vitamin B12 Pending Beta-Hydroxybutyric Acd (0.2-2.81) mg/dl TSH 1.520 (0.300-4.500) uIu/ml Urine Color Urine Appearance (Clear) Urine pH (4.5-7.5) Ur Specific [place] (1.000-1.030) Urine Protein (Negative) Urine Glucose (UA) (Negative) Urine Ketones (Negative) Urine Blood (Negative) Urine Nitrite (Negative) Urine Bilirubin (Negative) Urine Urobilinogen (Negative) Ur Leukocyte Esterase (Negative) Urine WBC (Auto) (0-5) /hpf Urine RBC (Auto) (0-4) /hpf U Hyaline Cast (Auto) (0-5) /lpf U Epithel Cells (Auto) (0-5) /lpf Urine Bacteria (Auto) (Negative) Lyme Disease IgG Ab (Negative) Lyme Disease IgM Ab (Negative) 01/26/19 01/26/19 01/26/19 Range/Units 20:29 18:06 16:15 WBC (4.8-10.8) K/uL RBC (4.7-6.1) M/uL Hgb (14.0-18.0) g/dL Hct (42-52) % MCV (80-100) fL MCH (25-34) pg MCHC (32-36) g/dL RDW Std Deviation (36.4-46.3) fL RDW Coeff of [place] (11.5-14.5) % Plt Count (130-400) K/uL MPV (7.4-10.4) fL Immature Gran % (Auto) % Neut % (Auto) % Lymph % (Auto) % [place] % (Auto) % Eos % (Auto) % Baso % (Auto) % Immature Gran # (Auto) (0.00-0.02) K/uL Neut # (Auto) (1.4-6.5) K/uL Lymph # (Auto) (1.2-3.4) K/uL [place] # (Auto) (0.11-0.59) K/uL Eos # (Auto) (0-0.5) K/uL Baso # (Auto) (0-0.2) K/uL PT (9.0-12.0) Seconds INR (0.9-1.1) Sodium (136-145) mmol/L Potassium (3.5-5.1) mmol/L Chloride (98-107) mmol/L Carbon Dioxide (21-32) mmol/L Anion Gap (3-11) BUN (7-18) mg/dl Creatinine (0.6-1.4) mg/dl Est Cr Clr Drug Dosing ml/min Est GFR ( Amer) Est GFR (Non-Af Amer) BUN/Creatinine Ratio (10-20) Glucose (70-99) mg/dl POC Glucose 234 H 215 H 231 H (70-99) Estimat Average Glucose mg/dl Hemoglobin A1c (4.5-5.6) % Calcium (8.5-10.1) mg/dl Total Bilirubin (0.2-1) mg/dl AST (15-37) U/L ALT (12-78) U/L Alkaline Phosphatase (45-117) U/L Troponin I (0-0.045) ng/ml Total Protein (6.4-8.2) gm/dl Albumin (3.4-5.0) gm/dl Globulin (2.5-4.0) gm/dl Albumin/Globulin Ratio (0.9-2) Lipase (73-393) U/L Whole Bld Vitamin B1 Vitamin B12 Beta-Hydroxybutyric Acd (0.2-2.81) mg/dl TSH (0.300-4.500) uIu/ml Urine Color Urine Appearance (Clear) Urine pH (4.5-7.5) Ur Specific [place] (1.000-1.030) Urine Protein (Negative) Urine Glucose (UA) (Negative) Urine Ketones (Negative) Urine Blood (Negative) Urine Nitrite (Negative) Urine Bilirubin (Negative) Urine Urobilinogen (Negative) Ur Leukocyte Esterase (Negative) Urine WBC (Auto) (0-5) /hpf Urine RBC (Auto) (0-4) /hpf U Hyaline Cast (Auto) (0-5) /lpf U Epithel Cells (Auto) (0-5) /lpf Urine Bacteria (Auto) (Negative) Lyme Disease IgG Ab (Negative) Lyme Disease IgM Ab (Negative) 01/26/19 01/26/19 01/26/19 Range/Units 16:15 11:37 11:30 WBC (4.8-10.8) K/uL RBC (4.7-6.1) M/uL Hgb (14.0-18.0) g/dL Hct (42-52) % MCV (80-100) fL MCH (25-34) pg MCHC (32-36) g/dL RDW Std Deviation (36.4-46.3) fL RDW Coeff of [place] (11.5-14.5) % Plt Count (130-400) K/uL MPV (7.4-10.4) fL Immature Gran % (Auto) % Neut % (Auto) % Lymph % (Auto) % [place] % (Auto) % Eos % (Auto) % Baso % (Auto) % Immature Gran # (Auto) (0.00-0.02) K/uL Neut # (Auto) (1.4-6.5) K/uL Lymph # (Auto) (1.2-3.4) K/uL [place] # (Auto) (0.11-0.59) K/uL Eos # (Auto) (0-0.5) K/uL Baso # (Auto) (0-0.2) K/uL PT (9.0-12.0) Seconds INR (0.9-1.1) Sodium (136-145) mmol/L Potassium (3.5-5.1) mmol/L Chloride (98-107) mmol/L Carbon Dioxide (21-32) mmol/L Anion Gap (3-11) BUN (7-18) mg/dl Creatinine (0.6-1.4) mg/dl Est Cr Clr Drug Dosing ml/min Est GFR ( Amer) Est GFR (Non-Af Amer) BUN/Creatinine Ratio (10-20) Glucose (70-99) mg/dl POC Glucose 274 H (70-99) Estimat Average Glucose mg/dl Hemoglobin A1c (4.5-5.6) % Calcium (8.5-10.1) mg/dl Total Bilirubin (0.2-1) mg/dl AST (15-37) U/L ALT (12-78) U/L Alkaline Phosphatase (45-117) U/L Troponin I (0-0.045) ng/ml Total Protein (6.4-8.2) gm/dl Albumin (3.4-5.0) gm/dl Globulin (2.5-4.0) gm/dl Albumin/Globulin Ratio (0.9-2) Lipase (73-393) U/L Whole Bld Vitamin B1 Pending Vitamin B12 Beta-Hydroxybutyric Acd (0.2-2.81) mg/dl TSH (0.300-4.500) uIu/ml Urine Color Yellow Urine Appearance Clear (Clear) Urine pH 5.0 (4.5-7.5) Ur Specific [place] > 1.045 H (1.000-1.030) Urine Protein Trace H (Negative) Urine Glucose (UA) 3+ H (Negative) Urine Ketones Negative (Negative) Urine Blood Negative (Negative) Urine Nitrite Negative (Negative) Urine Bilirubin Negative (Negative) Urine Urobilinogen Negative (Negative) Ur Leukocyte Esterase Negative (Negative) Urine WBC (Auto) 1-5 (0-5) /hpf Urine RBC (Auto) 0-4 (0-4) /hpf U Hyaline Cast (Auto) 1-5 (0-5) /lpf U Epithel Cells (Auto) 10-20 H (0-5) /lpf Urine Bacteria (Auto) Negative (Negative) Lyme Disease IgG Ab (Negative) Lyme Disease IgM Ab (Negative) 01/26/19 01/26/19 01/26/19 Range/Units 09:30 09:30 09:30 WBC (4.8-10.8) K/uL RBC (4.7-6.1) M/uL Hgb (14.0-18.0) g/dL Hct (42-52) % MCV (80-100) fL MCH (25-34) pg MCHC (32-36) g/dL RDW Std Deviation (36.4-46.3) fL RDW Coeff of [place] (11.5-14.5) % Plt Count (130-400) K/uL MPV (7.4-10.4) fL Immature Gran % (Auto) % Neut % (Auto) % Lymph % (Auto) % [place] % (Auto) % Eos % (Auto) % Baso % (Auto) % Immature Gran # (Auto) (0.00-0.02) K/uL Neut # (Auto) (1.4-6.5) K/uL Lymph # (Auto) (1.2-3.4) K/uL [place] # (Auto) (0.11-0.59) K/uL Eos # (Auto) (0-0.5) K/uL Baso # (Auto) (0-0.2) K/uL PT 10.8 (9.0-12.0) Seconds INR 1.1 (0.9-1.1) Sodium (136-145) mmol/L Potassium (3.5-5.1) mmol/L Chloride (98-107) mmol/L Carbon Dioxide (21-32) mmol/L Anion Gap (3-11) BUN (7-18) mg/dl Creatinine (0.6-1.4) mg/dl Est Cr Clr Drug Dosing ml/min Est GFR ( Amer) Est GFR (Non-Af Amer) BUN/Creatinine Ratio (10-20) Glucose (70-99) mg/dl POC Glucose (70-99) Estimat Average Glucose mg/dl Hemoglobin A1c (4.5-5.6) % Calcium (8.5-10.1) mg/dl Total Bilirubin (0.2-1) mg/dl AST (15-37) U/L ALT (12-78) U/L Alkaline Phosphatase (45-117) U/L Troponin I < 0.015 (0-0.045) ng/ml Total Protein (6.4-8.2) gm/dl Albumin (3.4-5.0) gm/dl Globulin (2.5-4.0) gm/dl Albumin/Globulin Ratio (0.9-2) Lipase (73-393) U/L Whole Bld Vitamin B1 Vitamin B12 Beta-Hydroxybutyric Acd (0.2-2.81) mg/dl TSH (0.300-4.500) uIu/ml Urine Color Urine Appearance (Clear) Urine pH (4.5-7.5) Ur Specific [place] (1.000-1.030) Urine Protein (Negative) Urine Glucose (UA) (Negative) Urine Ketones (Negative) Urine Blood (Negative) Urine Nitrite (Negative) Urine Bilirubin (Negative) Urine Urobilinogen (Negative) Ur Leukocyte Esterase (Negative) Urine WBC (Auto) (0-5) /hpf Urine RBC (Auto) (0-4) /hpf U Hyaline Cast (Auto) (0-5) /lpf U Epithel Cells (Auto) (0-5) /lpf Urine Bacteria (Auto) (Negative) Lyme Disease IgG Ab Negative (Negative) Lyme Disease IgM Ab Negative (Negative) 01/26/19 01/26/19 Range/Units 09:30 09:30 WBC 7.24 (4.8-10.8) K/uL RBC 4.05 L (4.7-6.1) M/uL Hgb 12.9 L (14.0-18.0) g/dL Hct 34.2 L (42-52) % MCV 84.4 (80-100) fL MCH 31.9 (25-34) pg MCHC 37.7 H (32-36) g/dL RDW Std Deviation 43.1 (36.4-46.3) fL RDW Coeff of [place] 14.1 (11.5-14.5) % Plt Count 150 (130-400) K/uL MPV 10.2 (7.4-10.4) fL Immature Gran % (Auto) 0.3 % Neut % (Auto) 58.1 % Lymph % (Auto) 28.0 % [place] % (Auto) 9.7 % Eos % (Auto) 2.9 % Baso % (Auto) 1.0 % Immature Gran # (Auto) 0.02 (0.00-0.02) K/uL Neut # (Auto) 4.21 (1.4-6.5) K/uL Lymph # (Auto) 2.03 (1.2-3.4) K/uL [place] # (Auto) 0.70 H (0.11-0.59) K/uL Eos # (Auto) 0.21 (0-0.5) K/uL Baso # (Auto) 0.07 (0-0.2) K/uL PT (9.0-12.0) Seconds INR (0.9-1.1) Sodium 135 L (136-145) mmol/L Potassium 4.6 (3.5-5.1) mmol/L Chloride 105 (98-107) mmol/L Carbon Dioxide 22 (21-32) mmol/L Anion Gap 8.0 (3-11) BUN 26 H (7-18) mg/dl Creatinine 1.28 (0.6-1.4) mg/dl Est Cr Clr Drug Dosing 60.6 ml/min Est GFR ( Amer) 67.6 Est GFR (Non-Af Amer) 58.3 BUN/Creatinine Ratio 20.4 H (10-20) Glucose 302 H* (70-99) mg/dl POC Glucose (70-99) Estimat Average Glucose mg/dl Hemoglobin A1c (4.5-5.6) % Calcium 10.4 H (8.5-10.1) mg/dl Total Bilirubin 1.5 H (0.2-1) mg/dl AST 23 (15-37) U/L ALT 41 (12-78) U/L Alkaline Phosphatase 125 H (45-117) U/L Troponin I (0-0.045) ng/ml Total Protein 7.9 (6.4-8.2) gm/dl Albumin 4.1 (3.4-5.0) gm/dl Globulin 3.8 (2.5-4.0) gm/dl Albumin/Globulin Ratio 1.1 (0.9-2) Lipase 2391 H (73-393) U/L Whole Bld Vitamin B1 Vitamin B12 Beta-Hydroxybutyric Acd 1.92 (0.2-2.81) mg/dl TSH (0.300-4.500) uIu/ml Urine Color Urine Appearance (Clear) Urine pH (4.5-7.5) Ur Specific [place] (1.000-1.030) Urine Protein (Negative) Urine Glucose (UA) (Negative) Urine Ketones (Negative) Urine Blood (Negative) Urine Nitrite (Negative) Urine Bilirubin (Negative) Urine Urobilinogen (Negative) Ur Leukocyte Esterase (Negative) Urine WBC (Auto) (0-5) /hpf Urine RBC (Auto) (0-4) /hpf U Hyaline Cast (Auto) (0-5) /lpf U Epithel Cells (Auto) (0-5) /lpf Urine Bacteria (Auto) (Negative) Lyme Disease IgG Ab (Negative) Lyme Disease IgM Ab (Negative) Medications Administered Current Inpatient Medications Acetaminophen (Tylenol) 650 mg PO Q4H PRN PRN Reason: Pain or Fever Stop: 02/25/19 15:57 Clopidogrel Bisulfate (Plavix) 75 mg PO DAILY [facility] Stop: 02/26/19 08:59 Dextrose (Dextrose 50%) 25 - 50 ml IV UD PRN; Protocol PRN Reason: Hypoglycemia Protocol Stop: 02/25/19 15:57 Fluoxetine HCl (Prozac) 10 mg PO DAILY [facility] Stop: 02/26/19 08:59 Glucagon (Glucagen) 1 mg SQ UD PRN; Protocol PRN Reason: Hypoglycemia Protocol Stop: 02/25/19 15:57 Glucose (Glucose 40%) 15 - 30 gm PO UD PRN; Protocol PRN Reason: Hypoglycemia Protocol Stop: 02/25/19 15:57 Glucose (Dex4 Glucose) 4 - 8 tabs PO UD PRN; Protocol PRN Reason: Hypoglycemia Protocol Stop: 02/25/19 15:57 Hydralazine HCl (Apresoline) 50 mg PO TID [facility] Stop: 02/25/19 13:59 Last Admin: 01/26/19 21:37 Dose: 50 mg Documented by: Lactated Ringer's (Lr) 1,000 mls @ 150 mls/hr IV .Q6H40M [facility] Stop: 02/26/19 08:14 Insulin Aspart (Novolog Flexpen) 0 units SC ACHS [facility] Stop: 02/25/19 16:29 Last Admin: 01/26/19 21:37 Dose: 3 units Documented by: Ioversol (Optiray 320 100ml) 93 ml IV ONCE PRN PRN Reason: Interaction Checking Stop: 01/30/19 10:55 Last Admin: 01/26/19 10:56 Dose: 93 ml Documented by: Magnesium Hydroxide (Milk Of Magnesia) 30 ml PO Q12H PRN PRN Reason: Constipation Stop: 02/25/19 15:57 Meclizine HCl (Antivert) 25 mg PO Q6H PRN PRN Reason: Dizziness Stop: 02/25/19 15:57 Metoprolol Tartrate (Lopressor) 25 mg PO BID [facility] Stop: 02/25/19 13:24 Last Admin: 01/26/19 21:54 Dose: 25 mg Documented by: Miscellaneous (Carbohydrates For Hypoglycemia) 15 - 30 gm PO UD PRN PRN Reason: Hypoglycemia Treatment Stop: 02/25/19 15:57 Miscellaneous Information (Consult Glycemic Management Pharmacy) 1 ea N/A NOW STA Stop: 01/27/19 08:07 Ondansetron HCl (Zofran) 4 mg IV Q6H PRN PRN Reason: Nausea Stop: 02/25/19 15:57 Risperidone (Risperdal) 0.5 mg PO DAILY [facility] Stop: 02/26/19 08:59 PG Care Time/CCT Total # of Minutes Spent Total Time Spent with Patient: Total time spent is greater than 50% in coordination of care (as documented) at patient's floor/unit and/or counseling patient: Resident Activity Tracking Resident Involvement: Resident Care Provided Care Provided: Adult Hospital Medicine (1) Pancreatitis Acute pancreatitis complication: unspecified Chronicity: acute Pancreatitis type: other Qualified Code(s): K85.80 - Other acute pancreatitis without necrosis or infection
[2019-01-27 07:55] LABS: Estimated Average Glucose 166 mg/dl; Hemoglobin A1C 7.4 % (4.5-5.6)
[2019-01-27] MEDS ORDERED: PHARMACY GLYCEMIC MGMT CONSULT PRN (08:19)
[2019-01-27 08:30] LABS: Albumin Level 3.3 gm/dl (3.4-5.0); BUN Creatinine Ratio 16.2 (10-20); Calcium 9.3 mg/dl (8.5-10.1); Creatinine Clr Calc Pharmacy 76.2 ml/min; Est GFR (Non-African American) 76.8; Potassium 4.3 mmol/L (3.5-5.1)
[2019-01-27] MEDS ORDERED: INSULIN GLARGINE SOLOSTAR 100 UNITS/ML 3 ML PEN SC STA (08:33)
[2019-01-27] MEDS: LACTATED RINGER'S 1,000 ML IV SCH ×3 (08:33→21:46)
[2019-01-27] MEDS: INSULIN ASPART 100 UNITS/ML 3 ML PEN SC SCH ×4 (08:34→21:34)
[2019-01-27 08:35] LABS: Albumin Globulin Ratio 1.1 (0.9-2); Bilirubin,Total 1.4 mg/dl (0.2-1); Total Protein 6.3 gm/dl (6.4-8.2)
[2019-01-27] MEDS: HydrALAZINE TAB 50 MG TAB PO SCH ×3 (08:36→21:32)
[2019-01-27] MEDS: risperiDONE 0.5 MG TABLET PO SCH (08:37)
[2019-01-27] MEDS: FLUOXETINE HCL 10 MG CAP PO SCH (08:37)
[2019-01-27] MEDS: CLOPIDOGREL BISULFATE 75 MG TAB PO SCH (08:37)
--- NOTE | 2019-01-27 08:39 | Pharmacy Report ---
Glycemic Control Consultation - Date of Service January 27, 2019 - Scope Scope: Glycemic Pharmacist consulted by Dr Bowers on 01/27 for glycemic control and to write orders per [facility] inpatient glycemic control protocol - Objective Weight: 90.945 kg Accuchecks BSG (last 24hrs): 01/26/19 01/26/19 01/26/19 09:30 11:37 16:15 Glucose 302 H* POC Glucose 274 H 231 H 01/26/19 01/26/19 01/27/19 18:06 20:29 07:05 Glucose POC Glucose 215 H 234 H 238 H 01/27/19 07:09 Glucose 234 H POC Glucose Laboratory Data (last 24hrs): 01/26/19 01/27/19 09:30 07:09 Potassium 4.6 4.3 Carbon Dioxide 22 21 Anion Gap 8.0 9.0 Creatinine 1.28 1.02 Est Cr Clr Drug Dosing 60.6 76.2 Beta-Hydroxybutyric Acd 1.92 HbA1c: Hemoglobin A1c 7.4 % (4.5-5.6) H 01/27/19 07:05 - Recent Pertinent Medications Outpatient Anti-diabetic Regimen: * glyburide 2.5 mg bid, metformin 500 mg bid * A1c = 7.4 % 01/27 The patient is currently receiving: * Basal insulin: n/a * Correctional Insulin: Novolog Correction per scale ACHS Goal Range: Low 140 mg/dL - High 160 mg/dL Correction Factor: 35 mg/dL/unit * Prandial insulin: Per carb ratio of 1 unit per 15 grams CHO consumed Risk Factors for Insulin Resistance: * Diet: NPO - Assessment & Plan Assessment & Plan: ASSESSMENT: * 63 year old male admitted with pancreatitis. PMHx significant of type 2 diabetes managed on only oral agents at home. A1C of 7.4% indicates reasonable control outpatient * On admission BSGs elevated despite NPO status, fasting this AM elevated at 234 mg/dL - will order Lantus 15 units x 1 this morning (full dose stress of 1) * Will tighten CF with lunch as not trending down. Lantus dose this AM given around 1000, lunchtime BSG drawn about ~1 hr after so not yet seeing effects from dose * Will add small Lantus dose for HS if BSGs still remain higher PLAN FOR INPATIENT GLYCEMIC CONTROL: * Holding outpatient oral diabetes medications * Basal insulin * Lantus 15 x 1 * Lantus HS per scale: for BSG <180 hold, for BSG 180 or above - give 8 units * Bolus insulin * NovoLog per scale ACHS or Q6hrs while NPO * Goal Range: Low 110 mg/dL - High 140 mg/dL * Correction Factor: 20 mg/dL/unit * Nutritional / Prandial insulin per carb ratio of 1 unit per 9 grams CHO consumed * Please note that the plan above was derived based on current level of insulin resistance and hospital stress. These recommendations are appropriate for inpatient admission only. Plan of care upon discharge will need to be reassessed to avoid potential outpatient hypo/hyperglycemia. Thank you.
[2019-01-27 08:45] LABS: Hematocrit (blood only) 30.7 % (42-52); Hemoglobin 11.2 g/dL (14.0-18.0); Mean Corpuscular Hemoglobin 30.9 pg (25-34); Mean Corpuscular Hgb Conc 36.5 g/dL (32-36); Mean Corpuscular Volume 84.6 fL (80-100); Platelet Count 125 K/uL (130-400); RDW Coefficient of Variation 14.2 % (11.5-14.5); RDW Standard Deviation 44.4 fL (36.4-46.3); Red Blood Count 3.63 M/uL (4.7-6.1); White Blood Count 6.11 K/uL (4.8-10.8)
[2019-01-27] MEDS: METOPROLOL TARTRATE 25 MG TAB PO SCH ×2 (09:57→21:32)
[2019-01-27] MEDS ORDERED: INSULIN ASPART 100 UNITS/ML 3 ML PEN SC SCH (12:00)
[2019-01-27] MEDS ORDERED: CYANOCOBALAMIN 1,000 MCG in SYRINGE 0.97 ML IM ONE (12:00)
[2019-01-27] MEDS: CYANOCOBALAMIN 1000 MCG/ML VIAL IM SCH (13:32)
--- NOTE | 2019-01-27 15:13 | Ultrasound Report ---
US carotid doppler BI CLINICAL HISTORY: 63 years-old Male with tia. Acute strokelike symptoms COMPARISON: Brain MRI 01/26/2019 TECHNIQUE: Multiple real time sonographic images of the carotid bifurcations were obtained assessing cantor scale, color Doppler and spectral wave form appearance FINDINGS: RIGHT CAROTID: The peak systolic velocity of the right mid ICA [id number] cm/sec. The end diastoli c velocity measured 49 cm/sec. The ICA to CCA ratio measured 1.7 which correlates with a stenosis of 50-69%. Peak systolic velocity within the right common carotid artery measures 80 cm/s, end-diastoli c velocity of 20 cm/s. LEFT CAROTID: The peak systolic velocity of the left ICA [id number] cm/sec. The end diastolic veloc ity measured 23 cm/sec. The ICA to CCA ratio measured 1.0 which correlates with a stenosis of 0-50%. There is normal antegrade vertebral flow bilaterally. Mild to moderate mixed plaque about the bilater al carotid bulbs with additional calcified plaque of the bilateral common carotid arteries. IMPRESSION: 1. Mild to moderate mixed plaque of the bilateral carotid bulbs with elevated peak systolic velociti es of the mid right ICA correlating with 50-69% luminal narrowing. 2. Normal antegrade vertebral flow bilaterally. The above report was generated using voice recognition software. It may contain grammatical, syntax o r spelling errors. Electronically signed by: Hal Henson M.D. 01/27/2019 3:11 PM
--- NOTE | 2019-01-27 15:13 | Ultrasound Report ---
BILIARY ULTRASOUND CLINICAL HISTORY: Right upper quadrant abdominal pain COMPARISON STUDY: CT scan dated 01/26/2019 FINDINGS: No pancreatic abnormalities are visualized. The pancreatic head lesion described on the CT scan is not clearly visible ultrasonographically. The gallbladder appears sonographically normal. The re is no ductal dilatation. The common bile duct measures 4 mm. No hepatic masses are visualized. The re is no right-sided hydronephrosis. IMPRESSION: 1. Normal biliary ultrasound 2. The pancreatic lesion described on the recent CT scan could not be visualized with certainty. The failure of ultrasound to visualize this lesion does not negate its significance. Electronically signed by: Romain Olvera M.D. 01/27/2019 3:11 PM
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
[2019-01-27] MEDS ORDERED: Nursing to Pharmacy Communication ONE (17:18)
[2019-01-27] MEDS ORDERED: INSULIN GLARGINE SOLOSTAR 100 UNITS/ML 3 ML PEN SC ONE (21:00)
[2019-01-28] MEDS: LACTATED RINGER'S 1,000 ML IV SCH ×3 (04:22→21:23)
[2019-01-28] MEDS: INSULIN ASPART 100 UNITS/ML 3 ML PEN SC SCH ×4 (08:23→21:27)
[2019-01-28] MEDS: CLOPIDOGREL BISULFATE 75 MG TAB PO SCH (08:24)
[2019-01-28] MEDS: HydrALAZINE TAB 50 MG TAB PO SCH ×3 (08:24→21:23)
[2019-01-28] MEDS: METOPROLOL TARTRATE 25 MG TAB PO SCH ×2 (08:24→21:23)
[2019-01-28] MEDS: CYANOCOBALAMIN 500 MCG TABLET (VITAMIN B-12) PO SCH (08:24)
[2019-01-28] MEDS: FLUOXETINE HCL 10 MG CAP PO SCH (08:25)
[2019-01-28] MEDS: INSULIN GLARGINE SOLOSTAR 100 UNITS/ML 3 ML PEN SC SCH ×2 (08:25→21:25)
[2019-01-28] MEDS: risperiDONE 0.5 MG TABLET PO SCH (08:26)
[2019-01-28 08:46] LABS: BUN Creatinine Ratio 12.5 (10-20); Calcium 9.5 mg/dl (8.5-10.1); Creatinine Clr Calc Pharmacy 75.7 ml/min; Est GFR (Non-African American) 76.8
--- NOTE | 2019-01-28 12:16 | Family Medicine Progress Note ---
Date of Service January 28, 2019 Assessment & Plan (1) Pancreatitis: #Pancreatitis: Lipase elevated to 2300 on admission, admission CT abdomen pelvis demonstrated pancreatitis. This is consistent with the patient's nausea and vomiting, patient was not endorsing significant abdominal pain on admission. Endorses epigastric pain on palpation. Head of pancreas appears abnormal, but cannot be well visualized and will need EUS once pt is improved -Advance diet as tolerated, IVF with LR at 100 -Pain control as needed with acetaminophen -f/u am lipase #Abnormal pancreatic findings on CT Admission CT abdomen pelvis demonstrated abnormal appearing head of the pancreas, was not well-visualized, concerning for benign mass versus malignancy. -Consulted gastroenterology for recommendations regarding mass -Needs outpatient EUS for pancreatic mass, appears to be cystic in nature. [place] versus [facility] versus [facility] [place] -Gallbladder ultrasound wnl, unable to visualize pancreatic lesion #Dizziness: Uncertain etiology, with patient's prior history certainly could be a new CVA, however less likely given plavix use. Lyme negative TSH within normal limits. CT head neg for acute finding.MRI demonstrates areas of old infarction and encephalomalacia involving the left occipital lobe and left temporal lobe. Evidence of a prior right frontal craniotomy with subjacent right frontoparietal lobe encephalomalacia. Multiple old lacunar infarcts most pronounced in the cerebellar hemispheres. Tiny acute subacute infarcts involving the right cerebellar hemisphere, left frontal white matter, and posterior limb of the right internal capsule. -Given patient's presentation and MRI findings consulted neurology appreciate recommendations -Thought to be vestibular in nature -Counseled the patient on balance strategies, including using his proprioception (contact with table, wall, counter, etc) to augment his vestibular input. -Patient has a history of chronic alcohol use start thiamine, Mg, folic acid -B1 pending -B12 low normal 1000 mcg IM then 1000 mcg daily oral #CVA (cerebral vascular accident): Somewhat recent event, 05/2018, recently hospitalized in 2 boy and diagnosed with a repeat event. Given current presentation, and medical history there is a concern that he has had a repeat acute event. -Neuro consulted following recommendations -Stroke workup: TTE, Lipid profile wnl, A1c 7.4, Trop neg, TSH wnl -Stroke TX: continue plavix , continue tele, neurochecks per protocol, BP parameters SBP<180, consult pt/ot, outpatient goals (BP <135/85, LDL <70, A1c <7), f/u clinic 6-8 weeks -Restart home blood pressure meds -Prevention: on plavix, -Presumed etiology secondary to atrial fibrillation although not identified on telemetry yet. Will set the patient up with a Holter monitor as an outpatient with follow-up to see if it can identify episodes of atrial fibrill ation. -Will consider A/C pros: Stroke prevention, cons: Patient endorses vertigo, may be a significant fall risk -Will reassess tomorrow pending PT OT evaluation -Carotid Dopplers: Mild to moderate mixed plaque of bilateral carotid bulbs, right ICA 50 to 70% luminal narrowing, normal vertebral flow bilaterally #HTN (hypertension): SBP Max<180, goal< 135/180 -Continue home hydralazine 50 p.o. 3 times daily, metoprolol 25 mg p.o. twice daily #Abnormal CT scan, kidney: UA WNL, renal ultrasound demonstrated 11 mm cyst otherwise within normal limits #Hyperlipidemia: holding statin in setting of pancreatitis #DM type 2 (diabetes mellitus, type 2): Holding PO meds given above -A1c 7.4 -Glycemic consult placed #Anxiety: continue home meds FENa: Advance Diet as tolerated, on low fat/low fiber Code Status: Full code DVT PPX: SCDS PT/OT: Consulted Dispo: PCU Alexandre Bowers MD PGY 2, FCM This chart was completed utilizing [employer] voice recognition software. Grammatical errors, random word insertions, pronoun errors, and in complete sentences are an occasional consequence of the system. Any questions or concerns about the content, text, or information contained within the body of this dictation should be addressed directly to the physician for clarification. Supervising Physician Co-Signing Physician Notes Patient seen and examined with Dr. Bowers. I agree with their exam findings, review of systems, assessment and plan. I have personally reviewed the lab work and imaging from today. patient feeling better, no nausea, has an appetite, tolerating clears, ready to advance d/w Dr. Holcomb with neurology, will start on anticoagulation, try to get loop recorder Exam: AAOx3, NAD, lungs CTA bilaterally, normal respiratory effort, heart regular S1 and S2, no murmurs, abdomen soft, NT, ND, +BS no focal neurological deficits on exam - Acute/Subacute ischemic CVA, based on MRI brain findings Echo shows prosthetic aortic valve in good position, negative bubble study carotid dopplers with 50% stenosis lipid profile at goal, BP elevated at times consider embolic source, plan for anticoagulation plan for loop recorder, will talk with cardiology - Acute pancreatitis: could be due to pancreatic lesion in head of pancreas no gall stones, denies heavy alcohol use but could be dishonest pancreatitis improving slowly, advance diet as tolerated, on to low fat/low fiber today - Pancreatic head lesion: will arrange for EUS outpatient with [facility] Subjective Patient doing well this morning, sitting up in bed. Patient report no acute events overnight's, tolerating his diet of clears, voiding on his own, has not had a bowel movement, slept well overnight. Neurology and gastroenterology were consulted on the patient yesterday. Neurology thinks that his dizziness is likely vestibular related, however there is or some things that can be done to decrease his likelihood of further strokes. GI defers further work-up to outpatient endoscopic ultrasound. Spent a good deal of time counseling the patient on vertigo, strategies to help improve his balance. Acute concerns are present related to discharge, his ability to return to work, otherwise all questions answered. Physical Exam Physical Exam: General: No acute distress HEENT: Normocephalic atraumatic Neck: Lots of extra skin Cardiac: Regular rate and rhythm, I did not appreciate any significant murmurs rubs or gallops, negative calf tenderness, negative pedal edema Respiratory: Clear to auscultation bilaterally with symmetrical chest rise I do not appreciate significant wheezes, rales, rhonchi GI: Bowel sounds present, decreased tenderness to palpation in the epigastric region, otherwise nontender nondistended MSK: Moves all extremities Skin: Warm, dry, intact Neuro: Alert and oriented x3, did not know the building he was in, EOMI, PERRLA. CN II through XII grossly intact, Romberg positive, finger-nose intact, [id number] intact, some lag with rapid alternating movements, generally motor and sensory function intact, question whether is there is some element of cognitive delay Psych: Calm, cooperative Results & Data Vital Signs (Past 12 Hours) Vital Signs Temp Pulse Pulse Resp BP Pulse Ox 01/28/19 11:50 36.9 C 59 L 19 128/74 95 01/28/19 09:48 61 01/28/19 07:09 36.7 C 65 18 149/80 H 96 01/28/19 03:17 36.6 C 58 L 19 148/80 H 96 01/28/19 02:51 61 Laboratory Results 01/28/19 01/28/19 01/28/19 Range/Units 11:14 09:03 07:47 Sodium 139 (136-145) mmol/L Potassium 4.5 (3.5-5.1) mmol/L Chloride 109 H (98-107) mmol/L Carbon Dioxide 24 (21-32) mmol/L Anion Gap 6.0 (3-11) BUN 13 (7-18) mg/dl Creatinine 1.02 (0.6-1.4) mg/dl Est Cr Clr Drug Dosing 75.7 ml/min Est GFR ( Amer) 89.0 Est GFR (Non-Af Amer) 76.8 BUN/Creatinine Ratio 12.5 (10-20) Glucose 184 H (70-99) mg/dl POC Glucose 201 H (70-99) Calcium 9.5 (8.5-10.1) mg/dl Triglycerides 308 H (0-150) mg/dl Cholesterol 144 (0-200) mg/dl LDL Cholesterol, Calc 52 mg/dl VLDL Cholesterol, Calc 62 mg/dl HDL Cholesterol 30 mg/dl Cholesterol/HDL Ratio 5 01/28/19 01/27/19 01/27/19 Range/Units 07:11 20:29 16:30 Sodium (136-145) mmol/L Potassium (3.5-5.1) mmol/L Chloride (98-107) mmol/L Carbon Dioxide (21-32) mmol/L Anion Gap (3-11) BUN (7-18) mg/dl Creatinine (0.6-1.4) mg/dl Est Cr Clr Drug Dosing ml/min Est GFR ( Amer) Est GFR (Non-Af Amer) BUN/Creatinine Ratio (10-20) Glucose (70-99) mg/dl POC Glucose 176 H 171 H 171 H (70-99) Calcium (8.5-10.1) mg/dl Triglycerides (0-150) mg/dl Cholesterol (0-200) mg/dl LDL Cholesterol, Calc mg/dl VLDL Cholesterol, Calc mg/dl HDL Cholesterol mg/dl Cholesterol/HDL Ratio Medications Administered Current Inpatient Medications Acetaminophen (Tylenol) 650 mg PO Q4H PRN PRN Reason: Pain or Fever Stop: 02/25/19 15:57 Clopidogrel Bisulfate (Plavix) [address] [facility] Stop: 02/26/19 08:59 Last Admin: 01/28/19 08:24 Dose: 75 mg Documented by: Cyanocobalamin (Vitamin B-12) 1,[address] [facility] Stop: 02/27/19 08:59 Last Admin: 01/28/19 08:24 Dose: 1,000 mcg Documented by: Cyanocobalamin (Vitamin B-12) 1,000 mcg IM TODAY@1230 [facility] Stop: 02/26/19 12:29 Last Admin: 01/27/19 13:32 Dose: 1,000 mcg Documented by: Dextrose (Dextrose 50%) 25 - 50 ml IV UD PRN; Protocol PRN Reason: Hypoglycemia Protocol Stop: 02/25/19 15:57 Fluoxetine HCl (Prozac) [address] [facility] Stop: 02/26/19 08:59 Last Admin: 01/28/19 08:25 Dose: 10 mg Documented by: Glucagon (Glucagen) 1 mg SQ UD PRN; Protocol PRN Reason: Hypoglycemia Protocol Stop: 02/25/19 15:57 Glucose (Glucose 40%) 15 - 30 gm PO UD PRN; Protocol PRN Reason: Hypoglycemia Protocol Stop: 02/25/19 15:57 Glucose (Dex4 Glucose) 4 - 8 tabs PO UD PRN; Protocol PRN Reason: Hypoglycemia Protocol Stop: 02/25/19 15:57 Hydralazine HCl (Apresoline) [address] [facility] Stop: 02/25/19 13:59 Last Admin: 01/28/19 08:24 Dose: 50 mg Documented by: Lactated Ringer's (Lr) 1,000 mls @ 100 mls/hr IV .Q10H [facility] Stop: 02/26/19 08:14 Last Admin: 01/28/19 11:12 Dose: 100 mls/hr Documented by: Insulin Aspart (Novolog Flexpen) [address] [facility]; Protocol Stop: 02/26/19 17:29 Last Admin: 01/28/19 11:51 Dose: 8 units Documented by: Insulin Glargine (Lantus Solostar Pen) [address] [facility]; Protocol Stop: 02/27/19 08:59 Last Admin: 01/28/19 08:25 Dose: 15 units Documented by: Ioversol (Optiray 320 100ml) 93 ml IV ONCE PRN PRN Reason: Interaction Checking Stop: 01/30/19 10:55 Last Admin: 01/26/19 10:56 Dose: 93 ml Documented by: Magnesium Hydroxide (Milk Of Magnesia) 30 ml PO Q12H PRN PRN Reason: Constipation Stop: 02/25/19 15:57 Meclizine HCl (Antivert) 25 mg PO Q6H PRN PRN Reason: Dizziness Stop: 02/25/19 15:57 Metoprolol Tartrate (Lopressor) 25 mg PO BID [facility] Stop: 02/25/19 13:24 Last Admin: 01/28/19 08:24 Dose: 25 mg Documented by: Miscellaneous (Carbohydrates For Hypoglycemia) 15 - 30 gm PO UD PRN PRN Reason: Hypoglycemia Treatment Stop: 02/25/19 15:57 Miscellaneous Information (Consult Glycemic Management Pharmacy) 1 ea N/A UD PRN PRN Reason: Consult Stop: 02/26/19 08:18 Ondansetron HCl (Zofran) 4 mg IV Q6H PRN PRN Reason: Nausea Stop: 02/25/19 15:57 Last Admin: 01/27/19 12:45 Dose: 4 mg Documented by: Risperidone (Risperdal) 0.[address] [facility] Stop: 02/26/19 08:59 Last Admin: 01/28/19 08:26 Dose: 0.5 mg Documented by: PG Care Time/CCT Total # of Minutes Spent Total Time Spent with Patient: Total time spent is greater than 50% in coordination of care (as documented) at patient's floor/unit and/or counseling patient: Resident Activity Tracking Resident Involvement: Resident Care Provided Care Provided: Adult Hospital Medicine (1) Pancreatitis Acute pancreatitis complication: unspecified Chronicity: acute Pancreatitis type: other Qualified Code(s): K85.80 - Other acute pancreatitis without necrosis or infection
[2019-01-28] MEDS: CYANOCOBALAMIN 1000 MCG/ML VIAL IM SCH (13:04)
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
[2019-01-29 06:33] LABS: Basophils # (auto) 0.05 K/uL (0-0.2); Basophils % (auto) 0.9 %; Eosinophils # (auto) 0.16 K/uL (0-0.5); Eosinophils % (auto) 2.9 %; Hematocrit (blood only) 29.6 % (42-52); Hemoglobin 10.8 g/dL (14.0-18.0); Immature Granulocytes # (auto) 0.01 K/uL (0.00-0.02); Immature Granulocytes % (auto) 0.2 %; Lymphocytes # (auto) 1.73 K/uL (1.2-3.4); Lymphocytes % (auto) 31.6 %; Mean Corpuscular Hemoglobin 30.9 pg (25-34); Mean Corpuscular Hgb Conc 36.5 g/dL (32-36); Mean Corpuscular Volume 84.8 fL (80-100); Mean Platelet Volume 9.3 fL (7.4-10.4); Monocytes # (auto) 0.54 K/uL (0.11-0.59); Monocytes % (auto) 9.9 %; Neutrophils # (auto) 2.98 K/uL (1.4-6.5); Neutrophils % (auto) 54.5 %; Platelet Count 105 K/uL (130-400); RDW Coefficient of Variation 14.3 % (11.5-14.5); Red Blood Count 3.49 M/uL (4.7-6.1); White Blood Count 5.47 K/uL (4.8-10.8)
[2019-01-29 07:10] LABS: BUN Creatinine Ratio 14.6 (10-20); Calcium 9.5 mg/dl (8.5-10.1); Creatinine Clr Calc Pharmacy 81.1 ml/min; Est GFR (African American) 94.6; Est GFR (Non-African American) 81.6
[2019-01-29] MEDS: LACTATED RINGER'S 1,000 ML IV SCH (07:35)
[2019-01-29] MEDS: INSULIN ASPART 100 UNITS/ML 3 ML PEN SC SCH ×3 (07:57→17:19)
[2019-01-29] MEDS: FLUOXETINE HCL 10 MG CAP PO SCH (08:07)
[2019-01-29] MEDS: CYANOCOBALAMIN 500 MCG TABLET (VITAMIN B-12) PO SCH (08:08)
[2019-01-29] MEDS: HydrALAZINE TAB 50 MG TAB PO SCH ×2 (08:08→14:16)
[2019-01-29] MEDS: CLOPIDOGREL BISULFATE 75 MG TAB PO SCH (08:08)
[2019-01-29] MEDS: risperiDONE 0.5 MG TABLET PO SCH (08:09)
[2019-01-29] MEDS: METOPROLOL TARTRATE 25 MG TAB PO SCH (08:09)
--- NOTE | 2019-01-29 08:19 | Family Medicine Progress Note ---
Date of Service January 29, 2019 Assessment & Plan (1) Pancreatitis: #Pancreatitis: Lipase elevated to 2300 on admission, admission CT abdomen pelvis demonstrated pancreatitis. This is consistent with the patient's nausea and vomiting, patient was not endorsing significant abdominal pain on admission. Endorses epigastric pain on palpation. Head of pancreas appears abnormal, but cannot be well visualized and will need EUS once pt is improved -Advance diet as tolerated, IVF with LR at 100 -Pain control as needed with acetaminophen -f/u am lipase #Abnormal pancreatic findings on CT Admission CT abdomen pelvis demonstrated abnormal appearing head of the pancreas, was not well-visualized, concerning for benign mass versus malignancy. -Consulted gastroenterology for recommendations regarding mass -Needs outpatient EUS for pancreatic mass, appears to be cystic in nature. [place] versus [facility] versus [facility] [place] -Gallbladder ultrasound wnl, unable to visualize pancreatic lesion #Dizziness: Uncertain etiology, with patient's prior history certainly could be a new CVA, however less likely given plavix use. Lyme negative TSH within normal limits. CT head neg for acute finding.MRI demonstrates areas of old infarction and encephalomalacia involving the left occipital lobe and left temporal lobe. Evidence of a prior right frontal craniotomy with subjacent right frontoparietal lobe encephalomalacia. Multiple old lacunar infarcts most pronounced in the cerebellar hemispheres. Tiny acute subacute infarcts involving the right cerebellar hemisphere, left frontal white matter, and posterior limb of the right internal capsule. -Given patient's presentation and MRI findings consulted neurology appreciate recommendations -Thought to be vestibular in nature -Counseled the patient on balance strategies, including using his proprioception (contact with table, wall, counter, etc) to augment his vestibular input. -Patient has a history of chronic alcohol use start thiamine, Mg, folic acid -B1 pending -B12 low normal 1000 mcg IM then 1000 mcg daily oral #CVA (cerebral vascular accident): Somewhat recent event, 05/2018, recently hospitalized in [place] and diagnosed with a repeat event. Given current presentation, and medical history there is a concern that he has had a repeat acute event. -Neuro consulted following recommendations -Stroke workup: TTE, Lipid profile wnl, A1c 7.4, Trop neg, TSH wnl -Stroke TX: continue plavix , continue tele, neurochecks per protocol, BP parameters SBP<180, consult pt/ot, outpatient goals (BP <135/85, LDL <70, A1c <7), f/u clinic 6-8 weeks -Restart home blood pressure meds -Prevention: on plavix, -Presumed etiology secondary to atrial fibrillation although not identified on telemetry yet. Will set the patient up with a Holter monitor as an outpatient with follow-up to see if it can identify episodes of atrial fibril lation. -Will consider A/C pros: Stroke prevention, cons: Patient endorses vertigo, may be a significant fall risk -Will reassess tomorrow pending PT OT evaluation -Carotid Dopplers: Mild to moderate mixed plaque of bilateral carotid bulbs, right ICA 50 to 70% luminal narrowing, normal vertebral flow bilaterally #HTN (hypertension): SBP Max<180, goal< 135/180 -Continue home hydralazine 50 p.o. 3 times daily, metoprolol 25 mg p.o. twice daily #Abnormal CT scan, kidney: UA WNL, renal ultrasound demonstrated 11 mm cyst otherwise within normal limits #Hyperlipidemia: holding statin in setting of pancreatitis #DM type 2 (diabetes mellitus, type 2): Holding PO meds given above -A1c 7.4 -Glycemic consult placed #Anxiety: continue home meds FENa: Advance Diet as tolerated, on low fat/low fiber Code Status: Full code DVT PPX: SCDS PT/OT: Consulted Dispo: PCU Alexandre Bowers MD PGY 2, [facility] This chart was completed utilizing [employer] voice recognition software. Grammatical errors, random word insertions, pronoun errors, and in complete sentences are an occasional consequence of the system. Any questions or concerns about the content, text, or information contained within the body of this dictation should be addressed directly to the physician for clarification. Results & Data Vital Signs (Past 12 Hours) Vital Signs Temp Pulse Resp BP Pulse Ox 01/29/19 03:29 36.6 C 67 16 157/77 H 97 01/28/19 23:17 36.6 C 64 18 152/79 H 94 PG Care Time/CCT Total # of Minutes Spent Total Time Spent with Patient: Total time spent is greater than 50% in coordination of care (as documented) at patient's floor/unit and/or counseling patient: (1) Pancreatitis Acute pancreatitis complication: unspecified Chronicity: acute Pancreatitis type: other Qualified Code(s): K85.80 - Other acute pancreatitis without necrosis or infection
[2019-01-29] MEDS ORDERED: INSULIN GLARGINE SOLOSTAR 100 UNITS/ML 3 ML PEN SC SCH (09:00)
[2019-01-29] MEDS ORDERED: LISINOPRIL 10 MG TAB PO SCH (09:00)
[2019-01-29] MEDS ORDERED: LIDOCAINE HCL 1% 20 ML VIAL ONE (10:17)
--- NOTE | 2019-01-29 10:39 | Procedure Note ---
Procedure Note Date of Service January 29, 2019 Note The procedure performed: Implantation of patient activated loop recorder Staff bioinformatics specialist: Johnny Hung MD Indication: Cryptogenic stroke Procedure in detail: The patient was informed of the risks benefits and alternatives to the intended procedure. They understood such and wished to proceed. The patient was taken to the electrophysiology suite where the upper chest area was prepped and draped in the usual sterile fashion. An area left lateral to the sternum in the 4th intercostal space was subsequently anesthetized using subcutaneous administration of lidocaine solution. A small incision was made at this site a nd implantation of the loop recorder was accomplished using a proprietary implantation tool. The small incision was subsequently closed using a single 4 0 Vicryl suture. Steri-Strips and a sterile dressing were then applied. The patient tolerated the procedure well. There were no immediate complications. The device was tested noninvasively prior to conclusion of the procedure. Equipment used: Patient activated loop recorder: [employer]. Model number [id number]. Serial number [id number] Coding
--- NOTE | 2019-01-29 14:00 | Discharge Summary ---
Date of Service January 29, 2019 Admission HPI Per Admitting Provider 63 y/o M with several complaints. Pt states he has been having progressive "dizziness" since November. He has difficulty describing this, but it is not lightheaded or double vision or room spinning. It is more of a feeling of pulling to the L. When he is sitting or lying, this does not happen, but with any standing or walking he feels unbalanced to the L. Denies any weakness in LE. Pt was sitting on the edge of the bed during discussion and he had this sensation while sitting, which was new. He moved to lying in the bed and in improved. He had no other sx with this other than mild nausea w/o emesis. Also d uring this time, pt has had worsening n/v. He states he eats without issue on some days, but several days a week he has n/v that is sometimes associated with PO intake and sometime not at all. His overall appetite and PO intake are low recently. He is unable to sleep. Pt denies fever, SOB, chest pain, abd pain, c/d, LE pain or swelling. No urinary sx or flank pain. Denies spotty vision or inability to see peripheral vision. Denies L sided neglect. Pt was dx with CVA 05/2018. These sx are different from that episode. He was put on plavix at that time and has been compliant. He was seen as an outpt in [place] about 2 weeks into the start of these new sx and was checked for Lyme, which was neg. He was admitted to [facility] last month for these sx and told that he had a stroke, but they did not know when. He states he had a CT but no MRI at that time. Pt missed his AM BP medications today. Pt states he has had no alcohol since he started having issues with dizziness. He denies heavy drinking, but does state that prior to this he would have 2 beers every day and has done that for many years. Prior to onset of sx, pt spent a lot of time outside. Admission Exam Per Admitting Provider Constitutional: WD/WN, vitals as above Eyes: normal visual rene by confrontation and + anicteric sclerae Neck: normal visual inspection and trachea midline Respiratory: normal respiratory effort, lungs clear to auscultation Cardiovascular: Rate/Rhythm: regular rate and regular rhythm Gastrointestinal (Abdomen): Inspection/Auscultation: abdomen not distended Percussion/Palpation: abdomen soft; abdomen nontender Musculoskeletal: Head/Neck/Chest: normocephalic and head atraumatic negative for edema, peripheral pulses intact Skin: no rashes, warm and dry Neurologic: CN's II-XI intact bilaterally and awake; not confused Speech / Cognition: normal speech While sitting on edge of bed, pt started to list to the L and had to balance himself Psychiatric: A+Ox3, euthymic affect Principal Diagnosis CVA and pancreatitis Discharge Exam General: No acute distress HEENT: Normocephalic atraumatic Neck: Lots of extra skin Cardiac: Regular rate and rhythm, I did not appreciate any significant murmurs rubs or gallops, negative calf tenderness, negative pedal edema Respiratory: Clear to auscultation bilaterally with symmetrical chest rise I do not appreciate significant wheezes, rales, rhonchi GI: Bowel sounds present, decreased tenderness to palpation in the epigastric region, otherwise nontender nondistended MSK: Moves all extremities Skin: Warm, dry, intact Neuro: Alert and oriented x3, did not know the building he was in Psych: Calm, cooperative Discharge Data Allergies Allergy/AdvReac Type Severity Reaction Status Date / Time oxycodone Allergy Confusion Unverified 01/26/19 10:16 Consultations 01/26/19 11:43 ED Decision to Admit Stat 01/27/19 07:58 Consult Gastroenterology Routine 01/27/19 08:02 Consult Neurology Routine 01/28/19 09:33 Consult Case Management - Discharge Planning Stat Procedures Performed Operation Date: 01/29/19 10:15 Actual Procedures p Implant Cardiac Event Recorder - Cholo Hung MD Ordered Studies 01/26/19 09:34 CT head/brain wo con Stat 01/26/19 10:43 CT abd pelvis IV con only Stat 01/26/19 15:58 MR brain wo con Stat US renal/blad retro comp Stat 01/27/19 13:52 US carotid doppler BI Routine 01/27/19 14:08 US gallbladder Routine 01/29/19 10:09 CL Cath Imgs for PACS use only Routine Hospital Course (1) Pancreatitis: PCP TO Do: -Check INR modify warfarin dose accordingly -Ensure follow-up with GI to assess pancreatic lesion -Help patient establish with vestibular rehab -Monitor blood glucose -Focus on better blood pressure control #Pancreatitis: Lipase elevated to 2300 on admission, admission CT abdomen pelvis demonstrated p ancreatitis. This is consistent with the patient's nausea and vomiting, patient was not endorsing significant abdominal pain on admission. Endorses epigastric pain on palpation. Head of pancreas appears abnormal, but cannot be well visualized and will need EUS once pt is improved. On January 29, patient tolerated his diet, was pain-free, lipase trending in the correct direction suspected persistent elevation is secondary to lesion on the head of the pancreas. Patient was subsequently discharged. #Abnormal pancreatic findings on CT Admission CT abdomen pelvis demonstrated abnormal appearing head of the pancreas, was not well-visualized, concerning for benign mass versus malignancy. Consulted gastroenterology for recommendations regarding mass they recommend outpatient EUS for pancreatic mass, appears to be cystic in nature. Gallbladder ultrasound was performed as well it was within normal limits and they were unable to visualize the pancreas lesion on the ultrasound. Case management arranging with [email or web address] #Dizziness: Uncertain etiology, with patient's prior history certainly could be a new CVA, however less likely given plavix use. Lyme negative TSH within normal limits. CT head neg for acute finding.MRI demonstrates areas of old infarction and encephalomalacia involving the left occipital lobe and left temporal lobe. Evidence of a prior right frontal craniotomy with subjacent right frontoparietal lobe encephalomalacia. Multiple old lacunar infarcts most pronounced in the cerebellar hemispheres. Tiny acute subacute infarcts involving the right cerebellar hemisphere, left frontal white matter, and posterior limb of the right internal capsule. Neurology was consulted for the dizziness they felt that it was to be vestibular in nature. Labs demonstrated a low B12, and this is been repleted with 1 dose of the thousand micrograms IM then daily at thousand micrograms oral. Patient received PT and OT well hospitalized, and did well. He seems to do better ambulating with a cane, will be dc'd with a cane. #CVA (cerebral vascular accident): Somewhat recent event, 05/2018, recently hospitalized in [place] and diagnosed with a repeat event. Given current presentation, and medical history there is a concern that he has had a repeat acute event. -Neuro consulted following recommendations -Stroke workup: TTE, Lipid profile wnl, A1c 7.4, Trop neg, TSH wnl -Stroke TX: continue plavix , continue tele, neurochecks per protocol, BP parameters SBP<180, consult pt/ot, outpatient goals (BP <135/85, LDL <70, A1c <7), f/u clinic 6-8 weeks -Restart home blood pressure meds -Prevention: on plavix, -Presumed etiology secondary to atrial fibrillation although not identified on telemetry yet. Will set the patient up with a Holter monitor as an outpatient with follow-up to see if it can identify episodes of atrial fibrillation. -Will consider A/C pros: Stroke prevention, cons: Patient endorses vertigo, may be a significant fall risk -Elected to initiate anticoagulation with warfarin, patient to follow-up with his primary care provider in 2 days as an outpatient. Will need INR level checked. -Carotid Dopplers: Mild to moderate mixed plaque of bilateral carotid bulbs, right ICA 50 to 70% luminal narrowing, normal vertebral flow bilaterally #HTN (hypertension): SBP Max<180, goal< 135/180 -Continue home hydralazine 50 p.o. 3 times daily, metoprolol 25 mg p.o. twice daily #Abnormal CT scan, kidney: UA WNL, renal ultrasound demonstrated 11 mm cyst otherwise within normal limits #Hyperlipidemia: holding statin in setting of pancreatitis #DM type 2 (diabetes mellitus, type 2): Holding PO meds given above -A1c 7.4 -Glycemic consult placed #Anxiety: continue home meds FENa: Advance Diet as tolerated, on low fat/low fiber Code Status: Full code DVT PPX: SCDS PT/OT: Consulted Dispo: U Alexandre Bowers MD PGY 2, FCM This chart was completed utilizing [employer] voice recognition software. Grammatical errors, random word insertions, pronoun errors, and in complete sentences are an occasional consequence of the system. Any questions or concerns about the content, text, or information contained within the body of this dictation should be addressed directly to the physician for clarification. Total Time Total Time Spent Total Time Spent (In Minutes): >30 Discharge Plan Discharge Items Patient Disposition: Home - Self-Care Reason For Visit: PANCREATITIS Discharge Diagnosis: CVA and pancreatitis Activity: Resume your previous activity Non-emergency contact: Primary Care Provider Call non-emergency contact if: you have any medication questions, your symptoms worsen, your pain is worsening and your temperature is above 101 Follow-up/Referrals: Josie Cardenas [Nurse Practitioner] - 02/06/19 11:45 am (Please, follow up at [facility] Gastroenterology Office with Josie TRAN on February 06 at 11:45 am. *The office is located in [facility] at [address] in [place]. If you need to change this appointment, call the office at [phone].) Raeann Lorenz, [Primary Care Provider] - 01/31/19 9:00 am (Please, follow up at [facility] [place] Office with Dr. Lorenz's associate, Dafne TRAN, on SundayJanuary 31 at 9:00 am. You can also have your labs drawn at this time. *The office is located next to [employer] in [place]. If you have any questions, call the office at [phone].) Gaby Holcomb MD [Physician] - (Please, follow up at [facility] Neurology [facility]. *A nurse from this office will call you with the appointment information. The office is located at [address] in [place]. If you have any questions, call the office at [phone].) Diet: Carb Consistent or DM2 Ambulatory Orders: Prothrombin Time INR (Routine) Timeframe: 2 Days Location: Determined by Patient Ordered By: Andreas Baird Attending Provider Instructions: Care instructions: You were admitted to [facility] for treatment of stroke and pancreatitis. Pancreatitis There is no specific care needed for your pancreatitis, please avoid alcohol, fatty foods, and fiber rich foods for the next 2 weeks as your pancreas returns to normal function. Stroke Please follow those recommendations provided to you on discharge regarding optimizing risk factors for stroke. While hospitalized he was on a blood thinner, Coumadin, this medication is to prevent further strokes from occurring. While on this medication he will need your blood checked on a regular basis to ensure it is not an effective level. Please have your primary care provider check your INR this coming Sunday at your scheduled appointment. Loop recorder A loop recorder was placed during this admission, please follow-up with cardiology as instructed. Pancreatic lesion On presentation you had a pancreatic lesion that was observed on CT scan, this is not observed on ultrasound. GI was consulted and felt that this was best evaluated on outpatient basis using an EUS. The case repairer has been reaching [facility] to help schedule this. Please have this further evaluated and take necessary preventative action. Dizziness Your dizziness symptoms were thought to be vestibular in nature, suggest follow- up with vestibular rehab. Hypertension While hospitalized her blood pressures were persistently elevated, there was discussion that there was room for improvement in your blood pressure management. Please continue taking the medications you were prescribed prior to being hospitalized, with the addition of lisinopril 10 mg daily. Elevated fasting blood glucose You have a history of elevated fasting blood glucose/prediabetes, please continue the medications you are on prior to admission. Use the blood glucose monitor to check her sugars on a daily basis approximately 2 hours after eating meals. Please resume your home medications metformin and glyburide. A discharge summary will be sent to your primary care physician to ensure continuity of care. Please bring this discharge summary with you to your next office appointment so that your provider can review it at that time. Follow-up appointments: - Keep all your follow-up appointments as already scheduled. If you cannot make an appointment, notify your provider. - Please call to request a follow-up appointment with your primary care physician within one week of discharge. Please let us know if you are unable to obtain an appointment Medications: - Your medication list has been reviewed and reconciled upon discharge to ensure accuracy and continuity of care. - You are provided with a list of all your current medications at this time. Please review this list closely and make note of any changes. - Please take all of your medications exactly as prescribed. - Tell your primary care provider if you cannot afford your medications. - Call your primary care provider if you are having any side effects or any other problems. - Call your primary care provider before taking any over the counter medications or supplements, including herbals and vitamins, because some of these may interact with your current medications and/or make your symptoms worse. -Your medications have been sent to the [facility] Symptoms: Please call your primary care provider for symptoms including, but not limited to: fevers (temperatures greater than 100.4), chills, intractable nausea or vomiting, diarrhea, rash, shortness of breath, bleeding, pain, or if you experience any worsening of the symptoms that brought you to the hospital. For EMERGENCY and VERY SERIOUS health-related issues, such as chest pain, shortness of breath, or sudden onset of the symptoms that brought you to the hospital, you may need to call 911 or go directly to the Emergency Room It has been our privilege to take care of you during your hospital stay. And Above All Else Feel Better! Best Wishes, Alexandre Bowers MD PGY2 Resident, Family & Community Medicine [facility] Res[facility] at [facility] - [address], [address] MC: [place] [address] Pending Studies at Discharge: No Stand-Alone Forms: [facility], Work/School Release (Inpt) Medications and DC Order Prescriptions: New cyanocobalamin (vitamin B-12) 500 mcg Tablet 1,000 mcg PO QAM 30 Days Qty: 60 RF: 0 warfarin [Coumadin] 5 mg Tablet 5 mg PO DAILY@1600 30 Days Qty: 30 RF: 0 cane device .ROUTE .MEDSUPPLY Qty: 1 RF: 0 lisinopril 20 mg tablet 20 mg PO DAILY 30 Days Qty: 30 RF: 0 Continued metformin 500 mg Tablet 500 mg PO BID RF: 0 atorvastatin [Lipitor] 80 mg Tablet 80 mg PO DAILY RF: 0 glyburide 2.5 mg Tablet 2.5 mg PO BID RF: 0 clopidogrel [Plavix] 75 mg Tablet 75 mg PO DAILY RF: 0 meclizine 25 mg Tablet 25 mg PO Q6H PRN (Reason: Dizziness) RF: 0 fluoxetine 10 mg Capsule 10 mg PO DAILY RF: 0 hydralazine 50 mg Tablet 50 mg PO TID RF: 0 risperidone 0.5 mg Tablet 0.5 mg PO DAILY RF: 0 metoprolol tartrate 25 mg Tablet 25 mg PO BID RF: 0 Discharge Orders: Discharge Order (Routine); Ordered 01/29/19 Ordered By: Alexandre Plata/Other Patient Handouts: Diabetes Fashion Editor Complications, Diabetes Resources, Diabetes Type 2 Coping, Blood Sugar Check, Diabetes Healthy Meals, Diabetes Carbs, Diabetes Exercise Benefits, Diabetes Exercise Get Started, Diabetes Activity Tips, Diabetes Living Life, Diabetes Manage A1C Test Admission Data Admit Date/Time: 01/26/19 13:49 Attending Provider: Andreas Cardenas Admit Provider: Samaria Gordon Primary Care Provider: Raeann Lorenz Other Providers: Samaria Gordon ; True Payne ; Bebeto Fox III Other Interventions: Discharge Summary Assessment (RN) Last Done: 01/29/19 17:02 DC Date/Time DO NOT enter until pt leaves facility: 01/29/19 17:51 Supervising Physician Co-Signing Physician Notes Patient seen and examined with Dr. Bowers. I agree with their exam findings, review of systems, assessment and plan. I have personally reviewed the lab work and imaging from today. patient eating well, no pain, no nausea, lipase still elevated but no symptoms at all d/w Dr. Hung, loop recorder was placed at the bedside discussed discharge plan with Dr. Holcomb details of plan discussed with patient, all his questions answered Exam: AAOx3, NAD, lungs CTA bilaterally, normal respiratory effort, heart regular S1 and S2, no murmurs, abdomen soft, NT, ND, +BS no focal neurological deficits on exam - Acute/Subacute ischemic CVA, based on MRI brain findings Echo shows prosthetic aortic valve in good position, negative bubble study carotid dopplers with 50% stenosis lipid profile at goal, BP elevated at times, start on Lisinopril 20mg, check BP with PCP consider embolic source, plan for anticoagulation, will use Coumadin 5mg daily, INR check in two days cannot use NOAC due to insurance issues loop recorder placed by Dr. Hung to look for atrial fibrillation - Acute pancreatitis: could be due to pancreatic lesion in head of pancreas no gall stones, denies heavy alcohol use but could be dishonest pancreatitis improving, nearly resolved, no pain, no nausea, tolerating diet - Pancreatic head lesion: will arrange for EUS outpatient with [facility] - DM: continue Glyburide and Metformin, diabetic diet - HTN: BP above goal, started on Lisinopril 20mg follow up with PCP, [facility] for EUS, neurology clinic Resident Activity Tracking Resident Involvement: Resident Care Provided Care Provided: Adult [facility]
--- NOTE | 2019-01-29 14:37 | Pharmacy Report ---
Pharmacy Glycemic Short Note 2 - Date of Service January 29, 2019 - Glycemic Short BSG Results (Last 24 hours): 01/28/19 01/28/19 01/29/19 16:12 20:36 06:22 Glucose 167 H POC Glucose 158 H 169 H 01/29/19 01/29/19 07:32 11:37 Glucose POC Glucose 184 H 231 H OUTPATIENT ANTIDIABETIC REGIMEN: * glyburide 2.5 mg BID, metformin 500 mg BID ASSESSMENT: * Patient's BSGs with better control yesterday, with 42 units of insulin * Fasting still above goal, plan to up-titrate lantus today * Prandial BSGs 158-201 yesterday, again elevated at lunch today, slightly tightened carb ratio with lunch PLAN FOR INPATIENT GLYCEMIC CONTROL: * Hold outpatient oral diabetes medications * Basal insulin * Lantus 14 units SQ BID * Bolus insulin * NovoLog per scale ACHS or Q6hrs while NPO * Goal Range: Low 110 mg/dL - High 140 mg/dL * Correction Factor: 20 mg/dL/unit * Nutritional / Prandial insulin per carb ratio of 1 unit per 8 grams CHO consumed PLAN FOR DISCHARGE: * Patient's A1c 7.4% on 01/27, goal a1c for patient 7%. Patient is nearly at goal with current regimen, could consider optimizing dose of metformin with titration up to 1000 mg BID
[2019-01-29] MEDS: WARFARIN SOD 5 MG TAB PO SCH ×2 (16:31→16:36)
== END 2019-01-29 17:51 | disposition home or self-care (01) | DRG 64 ==
LOC: ED 09:06 → 2S 13:49 → SUATTDRO 13:49 → 2S 14:55 → UNDODISIN 01-29 17:05

== ENCOUNTER 2019-03-28 11:56 | Inpatient (IN) ==
[2019-03-28] MEDS ORDERED: SODIUM CHLORIDE 0.9% 500 ML IV SCH (12:30)
--- NOTE | 2019-03-28 12:42 | XRay Report ---
XR chest 1V portable CLINICAL HISTORY: weakness dyspnea COMPARISON STUDY: No previous studies for comparison. FINDINGS: The bones soft tissues and hemidiaphragms are normal. The cardiomediastinal silhouette is n ormal. The lungs are clear. The pulmonary vasculature is normal. IMPRESSION: Negative chest. The above report was generated using voice recognition software. It may contain grammatical, syntax or spelling errors. Electronically signed by: Jem Casper M.D. 03/28/2019 12:40 PM
[2019-03-28 13:15] LABS: Basophils # (auto) 0.05 K/uL (0-0.2); Basophils % (auto) 0.7 %; Eosinophils # (auto) 0.03 K/uL (0-0.5); Eosinophils % (auto) 0.4 %; Hematocrit (blood only) 33.3 % (42-52); Hemoglobin 11.9 g/dL (14.0-18.0); Immature Granulocytes # (auto) 0.01 K/uL (0.00-0.02); Immature Granulocytes % (auto) 0.1 %; Lymphocytes # (auto) 1.48 K/uL (1.2-3.4); Lymphocytes % (auto) 20.4 %; Mean Corpuscular Hemoglobin 30.6 pg (25-34); Mean Corpuscular Hgb Conc 35.7 g/dL (32-36); Mean Corpuscular Volume 85.6 fL (80-100); Mean Platelet Volume 9.9 fL (7.4-10.4); Monocytes # (auto) 0.63 K/uL (0.11-0.59); Monocytes % (auto) 8.7 %; Neutrophils # (auto) 5.04 K/uL (1.4-6.5); Neutrophils % (auto) 69.7 %; Platelet Count 131 K/uL (130-400); RDW Standard Deviation 43.3 fL (36.4-46.3); Red Blood Count 3.89 M/uL (4.7-6.1); White Blood Count 7.24 K/uL (4.8-10.8)
[2019-03-28 13:32] LABS: Alanine Aminotransferase 38 U/L (12-78); Albumin Level 3.9 gm/dl (3.4-5.0); Aspartate Aminotransferase 25 U/L (15-37); BUN Creatinine Ratio 22.6 (10-20); Blood Urea Nitrogen 29 mg/dl (7-18); Calcium 9.9 mg/dl (8.5-10.1); Carbon Dioxide 26 mmol/L (21-32); Chloride 105 mmol/L (98-107); Est GFR (African American) 67.6; Est GFR (Non-African American) 58.3; Glucose 246 mg/dl (70-99); Magnesium 1.9 mg/dl (1.8-2.4); Potassium 4.5 mmol/L (3.5-5.1); Sodium 136 mmol/L (136-145)
[2019-03-28 13:35] LABS: Prothrombin Time 34.7 Seconds (9.0-12.0)
[2019-03-28 13:38] LABS: Alkaline Phosphatase 144 U/L (45-117); Bilirubin,Total 1.7 mg/dl (0.2-1); Globulin 3.9 gm/dl (2.5-4.0); Lipase 1907 U/L (73-393); Total Protein 7.8 gm/dl (6.4-8.2); Troponin I < 0.015 ng/ml (0-0.045)
[2019-03-28 13:47] LABS: INR 3.7 (0.9-1.1)
[2019-03-28] MEDS ORDERED: IOVERSOL 100ml IV PRN (14:30)
--- NOTE | 2019-03-28 14:50 | CT Scan Report ---
CT abd pelvis IV con only CLINICAL HISTORY: Mid abdominal pain COMPARISON STUDY: 01/26/2019 TECHNIQUE: The patient was scanned in a dynamic helical fashion during intravenous administration of 94 cc of Optiray 320 A dose lowering technique was utilized adhering to the principles of ALARA. CT DOSE: 784.50 mGycm FINDINGS: Lower chest: There is a stable 4 mm pleural-based right lower lobe pulmonary nodule Liver: There are multiple subcentimeter hepatic lesions which were not visualized the preceding study . Metastatic disease is the diagnosis of exclusion. Gallbladder: Unremarkable. Spleen: Normal in size and attenuation. Pancreas: There is an enlarging 26 mm hypodense pancreatic head mass. Given the hepatic lesions, panc reatic carcinoma is the diagnosis of exclusion. There is associated infiltration of the fat surroundi ng the superior mesenteric artery viewed as suspicious for neoplastic vascular encasement Adrenal glands: Unremarkable. Kidneys: There are bilateral renal cysts the largest of which measures 11 mm. Bowel: There are no transition zones indicate bowel obstruction. The appendix appears normal. There i s no evidence of acute diverticulitis. Peritoneum: There is no intraperitoneal free air or abdominal ascites. Vasculature: The abdominal aorta is normal in course and caliber. Adenopathy: None. Pelvic viscera: There is mild bladder wall thickening. There is minor prostate enlargement. Skeletal structures: No destructive osseous lesions are seen. IMPRESSION: 1. Enlarging pancreatic head mass measuring 26 mm. A pancreatic adenocarcinoma is the diagnosis of ex clusion. There is associated infiltration of the fat surrounding the superior mesenteric artery, a fi nding viewed as suspicious for tumor encasement 2. Interval development of multiple subcentimeter hypodense hepatic lesions viewed as suspicious for metastatic disease. 3. No evidence of bowel obstruction. No evidence of free air 4. Normal appendix. No evidence of acute diverticulitis. Electronically signed by: Romain Olvera M.D. 03/28/2019 2:49 PM
[2019-03-28] MEDS ORDERED: MoRPHine SULFATE 4 MG/ML 1 ML CARP\\VIAL IV STA (15:39)
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
[2019-03-28] MEDS: ONDANSETRON INJ 2 MG/ML 2 ML VIAL IV STA (15:51)
[2019-03-28 16:11] LABS: Appearance Urine Clear (Clear); Bacteria Urine Automated Negative (Negative); Bilirubin Urine Negative (Negative); Blood Urine Negative (Negative); Color Urine Yellow; Glucose Urine UA 2+ (Negative); Ketones Urine Negative (Negative); Leukocyte Esterase Urine Negative (Negative); Nitrite Urine Negative (Negative); Protein Urine 1+ (Negative); RBC Urine Automated 0-4 /hpf (0-4); Urobilinogen Urine Negative (Negative)
[2019-03-28] MEDS ORDERED: ONDANSETRON INJ 2 MG/ML 2 ML VIAL IV PRN (16:51)
[2019-03-28] MEDS ORDERED: HydrALAZINE HCL 20 MG/ML VIAL IV PRN (16:51)
[2019-03-28] MEDS ORDERED: GLUCOSE 10 TABS/TUBE PO PRN (16:59)
[2019-03-28] MEDS ORDERED: GLUCOSE 40% GEL 15 GM TUBE PO PRN (16:59)
[2019-03-28] MEDS ORDERED: GLUCAGON FOR INJ 1 MG VIAL SQ PRN (16:59)
[2019-03-28] MEDS ORDERED: CARBOHYDRATES FOR HYPOGLYCEMIA PO PRN (16:59)
[2019-03-28] MEDS ORDERED: DEXTROSE 50% 50 ML SYRINGE IV PRN (16:59)
--- NOTE | 2019-03-28 18:00 | CT Scan Report ---
CT head/brain wo con CLINICAL HISTORY: 63 years-old Male presenting with change in mental status. TECHNIQUE: Multidetector CT imaging of the head was performed without the use of intravenous contrast . IV contrast: None. One or more dose lowering techniques were used consistent with the principles of ALARA (as low as reasonably achievable), including automatic exposure control, mA or kV adjustment t o individual patient size, and/or use of iterative reconstruction. COMPARISON: 01/26/2019. CT DOSE (mGy.cm): The estimated cumulative dose is 614.27 mGy.cm. FINDINGS: [employer] topogram: The patient is edentulous. Ventricles and sulci normal in size. No hemorrhage. Encephalomalacia in the left temporal lobe. Trace encephalomalacia in the right frontoparietal region in the operative bed. No acute territorial infar ct. No mass effect or midline shift. No extra-axial fluid collection. Paranasal sinuses and mastoid a ir cells clear. Right frontoparietal craniotomy. IMPRESSION: 1. No significant change compared to the prior study. No acute intracranial abnormality. Electronically signed by: Jeremy Ramires M.D. 03/28/2019 5:59 PM
[2019-03-28] MEDS ORDERED: HydrALAZINE HCL 20 MG/ML VIAL ONE (18:17)
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
[2019-03-28] MEDS ORDERED: HydrALAZINE HCL 20 MG/ML VIAL IV STA (18:22)
[2019-03-28] MEDS ORDERED: METOPROLOL TARTRATE 50 MG TAB ONE (18:35)
[2019-03-28] MEDS: MoRPHine SULFATE 4 MG/ML 1 ML CARP\\VIAL IV PRN ×2 (19:48→23:34)
[2019-03-28] MEDS: LACTATED RINGER'S 1,000 ML IV SCH (19:48)
[2019-03-28 19:55] LABS: Thyroid Stimulating Hormone 1.13 uIu/ml (0.300-4.500)
[2019-03-28] MEDS: METOPROLOL TARTRATE 25 MG TAB PO SCH ×2 (20:11→20:13)
[2019-03-28] MEDS: AMLODIPINE BESYLATE 5 MG TAB PO SCH (20:11)
[2019-03-28] MEDS: INSULIN ASPART 100 UNITS/ML 3 ML PEN SC SCH (20:37)
[2019-03-28] MEDS ORDERED: GADOBUTROL 65ML VIAL IV PRN (21:46)
--- NOTE | 2019-03-28 22:18 | Magnetic Resonance Report ---
MR abdomen wo/w con CLINICAL HISTORY: 63 years-old Male presenting with Pancreatitis/mass, follow-up CT. TECHNIQUE: Multisequence, multiplanar MR imaging of the abdomen was performed before and after the ad ministration of intravenous contrast. IV contrast: 8 mL of Gadavist. COMPARISON: None. FINDINGS: Localizer images: Unremarkable. Lung bases: Normal heart size. No pericardial or pleural effusion. Lung base clear. Liver: Normal morphology. Multiple subcentimeter lesions in the left hepatic lobe, which appear to be nonenhancing or early peripherally enhancing and are mildly T2 hyperintense. Patent hepatic vasculat ure. Biliary: No intrahepatic or extrahepatic biliary ductal dilatation. Normal gallbladder. Pancreas: Largely nonenhancing mildly T2 hyperintense mass expanding the uncinate process of the panc reas with trace surrounding infiltrative changes anteromedially effacing the adjacent superior mesent mike artery along less than 180 degrees of the vessel. The mass measures 3.2 x 2.1 x 2.7 cm. Spleen: Normal. Adrenal glands: Normal. Kidneys and ureters: Left renal cysts noted. No hydronephrosis. Bowel: Normal. No bowel obstruction. Peritoneal cavity: No free fluid. Lymph nodes: No enlarged lymph nodes in the abdomen. Vasculature: Aorta and IVC patent and normal in caliber. Abdominal wall: Normal. Musculoskeletal: Normal. IMPRESSION: 1. Redemonstration of the pancreatic mass centered in the uncinate process measuring up to 3.2 cm an d effacing less than 180 degrees of the superior mesenteric artery. This is highly suspicious for cori plasm, most likely pancreatic ductal adenocarcinoma. A significant portion of this mass may be necrot ic given the nonenhancing central/measurable portion. 2. Multiple subcentimeter lesions in the left hepatic lobe of similar signal characteristics. Metast atic disease is of primary concern. Size of these lesions may be difficult to sample by fine-needle a spiration. Evaluation with ultrasound could be considered to assess for visualization by this modalit y. 3. No lymphadenopathy. Electronically signed by: Jeremy Ramires M.D. 03/28/2019 10:17 PM
[2019-03-29] MEDS ORDERED: INFLUENZA Vaccine HIGH DOSE 65+yrs 0.5 mL Syr IM ONE (06:00)
[2019-03-29 06:17] LABS: Basophils # (auto) 0.03 K/uL (0-0.2); Basophils % (auto) 0.4 %; Eosinophils # (auto) 0.05 K/uL (0-0.5); Eosinophils % (auto) 0.7 %; Hematocrit (blood only) 31.1 % (42-52); Immature Granulocytes # (auto) 0.01 K/uL (0.00-0.02); Immature Granulocytes % (auto) 0.1 %; Lymphocytes # (auto) 1.63 K/uL (1.2-3.4); Lymphocytes % (auto) 23.6 %; Mean Corpuscular Hemoglobin 30.1 pg (25-34); Mean Corpuscular Hgb Conc 35.4 g/dL (32-36); Mean Platelet Volume 10.5 fL (7.4-10.4); Monocytes # (auto) 0.51 K/uL (0.11-0.59); Monocytes % (auto) 7.4 %; Neutrophils # (auto) 4.67 K/uL (1.4-6.5); Neutrophils % (auto) 67.8 %; Platelet Count 128 K/uL (130-400); RDW Coefficient of Variation 14.1 % (11.5-14.5); RDW Standard Deviation 43.5 fL (36.4-46.3); Red Blood Count 3.66 M/uL (4.7-6.1)
[2019-03-29 06:43] LABS: Prothrombin Time 39.8 Seconds (9.0-12.0)
[2019-03-29 06:53] LABS: INR 4.3 (0.9-1.1)
[2019-03-29 07:04] LABS: Albumin Level 3.3 gm/dl (3.4-5.0); BUN Creatinine Ratio 24.7 (10-20); Calcium 9.4 mg/dl (8.5-10.1); Creatinine Clr Calc Pharmacy 69.6 ml/min; Est GFR (Non-African American) 71.6; Potassium 4.8 mmol/L (3.5-5.1)
[2019-03-29 07:07] LABS: Albumin Globulin Ratio 0.9 (0.9-2); Bilirubin,Total 1.5 mg/dl (0.2-1); Globulin 3.5 gm/dl (2.5-4.0); Total Protein 6.8 gm/dl (6.4-8.2)
[2019-03-29 07:34] LABS: Estimated Average Glucose 235 mg/dl; Hemoglobin A1C 9.8 % (4.5-5.6)
[2019-03-29] MEDS: AMLODIPINE BESYLATE 5 MG TAB PO SCH (08:26)
[2019-03-29] MEDS: ATORVASTATIN 40 MG TAB PO SCH (08:26)
[2019-03-29] MEDS: FLUOXETINE HCL 10 MG CAP PO SCH (08:26)
[2019-03-29] MEDS: INSULIN ASPART 100 UNITS/ML 3 ML PEN SC SCH ×4 (08:26→20:54)
[2019-03-29] MEDS: METOPROLOL TARTRATE 25 MG TAB PO SCH ×2 (08:26→20:54)
[2019-03-29] MEDS: MoRPHine SULFATE 4 MG/ML 1 ML CARP\\VIAL IV PRN ×4 (08:35→20:48)
[2019-03-29] MEDS ORDERED: RISEDRONATE 5 MG PO SCH (09:00)
[2019-03-29] MEDS ORDERED: PHARMACY GLYCEMIC MGMT CONSULT PRN (11:19)
[2019-03-29] MEDS ORDERED: INSULIN GLARGINE SOLOSTAR 100 UNITS/ML 3 ML PEN SC STA (11:36)
--- NOTE | 2019-03-29 11:50 | Pharmacy Report ---
Glycemic Control Consultation - Date of Service March 29, 2019 - Scope Scope: Glycemic Pharmacist consulted by Dr Sam on 03/29/19 for glycemic control and to write orders per [facility] inpatient glycemic control protocol - Objective Weight: 84.6 kg Accuchecks BSG (last 24hrs): 03/28/19 03/28/19 03/29/19 13:05 20:05 05:43 Glucose 246 H 160 H POC Glucose 184 H 03/29/19 03/29/19 07:20 11:16 Glucose POC Glucose 174 H 182 H Laboratory Data (last 24hrs): 03/28/19 03/29/19 13:05 05:43 Potassium 4.5 4.8 Carbon Dioxide 26 26 Anion Gap 5.0 4.0 Creatinine 1.28 1.08 Est Cr Clr Drug Dosing 59.0 69.6 HbA1c: Hemoglobin A1c 9.8 % (4.5-5.6) H 03/29/19 05:43 - Recent Pertinent Medications Outpatient Anti-diabetic Regimen: * Glyburide, Lantus 12u HS, Linagliptin * A1c = 9.8 % 03/29/19 - Assessment & Plan Assessment & Plan: ASSESSMENT: * Mr. Méndez is a 63yo M type II diabetic. P/w pancreatitis (pt takes Linagliptin at home, unsure if this is a new Rx for him). He is currently NPO and receiving LR @75cc/hr. Outpt glycemic management requires improvement, as evidenced by his A1C of 9.8% His last dose of lantus was 03/27 @1900. * PMHx consistent with HTN, HLD, CVA, among others. PLAN FOR INPATIENT GLYCEMIC CONTROL: * Holding outpatient oral diabetes medications * Basal insulin * Lantus 12u X1 today. 6 units to make up for missed dose yesterday evening + additional 6 units for today. Generally type II diabetics require 50-75% of their basal insulin when NPO. * Bolus insulin * NovoLog per scale ACHS or Q6hrs while NPO * Goal Range: Low 110 mg/dL - High 140 mg/dL * Correction Factor: 20 mg/dL/unit * Nutritional / Prandial insulin per carb ratio of 1 unit per 6 grams CHO consumed for when diet is ordered * Please note that the plan above was derived based on current level of insulin resistance and hospital stress. These recommendations are appropriate for inpatient admission only. Plan of care upon discharge will need to be reassessed to avoid potential outpatient hypo/hyperglycemia. Thank you.
[2019-03-29] MEDS: LACTATED RINGER'S 1,000 ML IV SCH ×2 (11:55→20:55)
--- NOTE | 2019-03-29 21:29 | Hospitalist Progress Note ---
Date of Service March 29, 2019 Assessment & Plan (1) Pancreatitis: Patient desperate to eat without significant pain, nausea or vomiting - therefore will advance diet. Continue lactated Ringer's at 75 mil/hr Triglycerides unremarkable Continue morphine for pain management. (2) Pancreatic mass: No biopsy confirmed cancer at this time therefore will discontinue oncology consult as discussed with Dr. Cruz Changed gastroenterology consult to [facility] since this appears to be his last clinic appointment. No CA-19-9 in [facility]. Will obtain now. (3) CVA (cerebral vascular accident): Recent history of multiple bilateral strokes thought to be cardioembolic although I am unclear whether atrial fibrillation was ever identified on his loop recorder. Started warfarin after January admission -I am unclear why this was chosen over a DOAC. Suspect thought to be safer to reverse given holding warfarin currently due to elevated INR of 4.6. CT head this admission shows no acute changes. TSH 1.13. (4) Hyperlipidemia: Continue atorvastatin 80 mg p.o. daily (5) DM type 2 (diabetes mellitus, type 2): HbA1c 9.8. Consulted glycemic pharmacy control. Given his extensive comorbid disease would recommend he is not discharged on linagliptin or glyburide especially as his suspected pancreatic cancer progresses he would likely be insulin-dependent. (6) HTN (hypertension): Hypertensive urgency on admission concerning for alcohol withdrawal. However he has no signs of this at present. Will continue on amlodipine and metoprolol for now. IV hydralazine as needed (7) Hypertensive crisis: As above (8) Status post transcatheter aortic valve replacement: Due to multiple bilateral embolic strokes previously we will get blood cultures with a.m. labs to assess for infective endocarditis. (9) Alcohol use disorder: Patient reports ongoing alcohol use to help with the pain despite extensive mentioning in multiple notes he should stop use to avoid ongoing pancreatitis. We will continue to monitor for potential withdrawal. Continue on thiamine (10) DVT prophylaxis: PT/INR daily. Currently supratherapeutic. Restart warfarin once INR < 3 (11) Discharge planning issues: Will need PT and OT evaluations prior to discharge. Subjective Patient seen on morning rounds. He reports abdominal pain much improved although he just had morphine to help with this. When asked about why he came in he reports he has been having abdominal pain for the last 4 months and it got to a stage where he could not bear it any longer. The patient reports he was told by the admitting physician yesterday that he may have cancer and this appears to be new news for him. However he is under [facility] gastroenterology and as per last note in January the plan was for possible EGD/EUS if cleared by cardiology although he has had recent TAVR and multiple embolic strokes and I am unsure whether this was ever done. The patient appears very unsure of what the plan is and thinks he is having surgery in April to " scrape it off". He denies any nausea, vomiting, change in bowel habit. Review of Systems Review of Systems: All systems reviewed & are unremarkable except as noted in HPI & below Physical Exam Constitutional: + ill appearing and + obese; + not well nourished and no acute distress Eyes: + anicteric sclerae; normal pupil size ENMT: external ear and nose normal, oropharynx normal Neck: trachea midline Respiratory: normal respiratory effort, lungs clear to auscultation Cardiovascular: Rate/Rhythm: regular rate and regular rhythm Heart Sounds: no murmur Vessels: no JVD Extremities: normal capillary refill; no pedal edema Gastrointestinal (Abdomen): Inspection/Auscultation: normal bowel sounds; abdomen not distended Percussion/Palpation: + abdomen tender (Mild in the epigastric/left upper quadrant on deep palpation) and abdomen soft; no guarding and abdomen not rigid Musculoskeletal: no cyanosis or clubbing, extremities motor strength 5/5 Skin: no rashes, warm and dry Neurologic: moves all extremities, awake and + confused; no focal motor deficits Motor/Sensory: no tremor, no pronator drift and no sensory deficit Psychiatric: Orientation: alert and oriented x 3 Eye Contact: good eye contact Affect: euthymic affect Insight: + limited insight Results & Data Vital Signs (Past 12 Hours) Vital Signs Temp Pulse Resp BP Pulse Ox 03/29/19 19:43 36.8 C 64 19 148/82 H 95 03/29/19 15:41 36.8 C 66 18 135/81 95 03/29/19 11:40 36.8 C 50 L 18 121/71 96 PG Care Time/CCT Total # of Minutes Spent Total Time Spent with Patient: Total time spent is greater than 50% in coordination of care (as documented) at patient's floor/unit and/or counseling patient: (1) Pancreatitis Acute pancreatitis complication: unspecified Chronicity: acute Pancreatitis type: unspecified pancreatitis type Qualified Code(s): K85.90 - Acute pancreatitis without necrosis or infection, unspecified (2) CVA (cerebral vascular accident) CVA mechanism: unspecified Qualified Code(s): I63.9 - Cerebral infarction, unspecified (3) DM type 2 (diabetes mellitus, type 2) 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
[2019-03-30 06:07] LABS: Basophils # (auto) 0.04 K/uL (0-0.2); Basophils % (auto) 0.5 %; Eosinophils # (auto) 0.06 K/uL (0-0.5); Eosinophils % (auto) 0.7 %; Hematocrit (blood only) 31.4 % (42-52); Immature Granulocytes # (auto) 0.01 K/uL (0.00-0.02); Immature Granulocytes % (auto) 0.1 %; Lymphocytes # (auto) 1.79 K/uL (1.2-3.4); Lymphocytes % (auto) 21.9 %; Mean Corpuscular Hemoglobin 29.8 pg (25-34); Mean Corpuscular Volume 85.1 fL (80-100); Mean Platelet Volume 10.1 fL (7.4-10.4); Monocytes # (auto) 0.75 K/uL (0.11-0.59); Monocytes % (auto) 9.2 %; Neutrophils # (auto) 5.52 K/uL (1.4-6.5); Neutrophils % (auto) 67.6 %; Platelet Count 120 K/uL (130-400); RDW Coefficient of Variation 13.9 % (11.5-14.5); RDW Standard Deviation 43.3 fL (36.4-46.3); Red Blood Count 3.69 M/uL (4.7-6.1); White Blood Count 8.17 K/uL (4.8-10.8)
[2019-03-30 06:28] LABS: Prothrombin Time 39.3 Seconds (9.0-12.0)
[2019-03-30 06:35] LABS: INR 4.3 (0.9-1.1)
[2019-03-30 06:39] LABS: Albumin Level 3.1 gm/dl (3.4-5.0); BUN Creatinine Ratio 28.1 (10-20); Calcium 9.2 mg/dl (8.5-10.1); Creatinine Clr Calc Pharmacy 65.9 ml/min; Est GFR (Non-African American) 66.4; Potassium 4.5 mmol/L (3.5-5.1)
[2019-03-30 06:42] LABS: Bilirubin,Total 1.5 mg/dl (0.2-1); Globulin 3.2 gm/dl (2.5-4.0); Total Protein 6.3 gm/dl (6.4-8.2)
[2019-03-30] MEDS: MoRPHine SULFATE 4 MG/ML 1 ML CARP\\VIAL IV PRN ×4 (07:48→23:37)
[2019-03-30] MEDS: FLUOXETINE HCL 10 MG CAP PO SCH (07:49)
[2019-03-30] MEDS: METOPROLOL TARTRATE 25 MG TAB PO SCH ×2 (07:49→20:57)
[2019-03-30] MEDS: AMLODIPINE BESYLATE 5 MG TAB PO SCH (07:49)
[2019-03-30] MEDS: ATORVASTATIN 40 MG TAB PO SCH (07:49)
[2019-03-30] MEDS: INSULIN ASPART 100 UNITS/ML 3 ML PEN SC SCH ×4 (07:53→20:57)
[2019-03-30] MEDS ORDERED: INSULIN GLARGINE SOLOSTAR 100 UNITS/ML 3 ML PEN SC SCH (09:00)
[2019-03-30] MEDS: LACTATED RINGER'S 1,000 ML IV SCH ×2 (09:51→17:59)
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
--- NOTE | 2019-03-30 17:14 | Hospitalist Progress Note ---
Date of Service March 30, 2019 Assessment & Plan (1) Pancreatic mass: No biopsy confirmed cancer despite mass found in January of this year. Discussed with Dr Tyson and reports not wanting to perform EUS while on ASA, Plavix, warfarin or during acute pancreatitis episode. Reportedly on aspirin and Plavix due to TAVR in September with cardiology note scanned in [facility] noting he should be on this for 6 months. Patient is currently off aspirin and Plavix after stopping at his neurology appointment on March 06. He would need cardiac clearance prior to any EUS therefore will consult [facility] and request outpatient records. As for his anticoagulation, this was discussed with Dr. Holcomb - recommended switching anticoagulation to Lovenox or apixaban as below, okay to hold for biopsy. INR currently supratherapeutic and will avoid reversing with vitamin K at present unless confirmed he will be getting an EUS. Highly recommend biopsy performed during this admission if possible as he likely needs to go back on antiplatelet for CAD +/- TAVR and would have to wait another 7 days off this to have biopsy. Necrotic mass - blood cultures pending, no indication for antibiotics at present. (2) Pancreatitis: I am unconvinced this is acute pancreatitis. Patient is a poor historian however reports pain is intermittent and ongoing for the last month and he came to the ER as it just has not improved over the last month rather than it becoming much worse. His lipase is minimally above diagnosis of acute pancreatitis. Discussed with Dr Ramires and confirmed no imaging evidence of pancreatitis, much more convincing diagnosis of pancreatic cancer. Increasing lipase this morning. Will increase lactated Ringer's to 125 ml/hr and cut back diet to full liquid diet. Triglycerides unremarkable Continue morphine for pain management. (3) CVA (cerebral vascular accident): Recent history of multiple bilateral strokes thought to be cardioembolic. Loop recorder - no atrial fibrillation events Suspected hypercoagulable state due to cancer Discussed with Dr. Holcomb who reported warfarin was chosen by patient consent - would prefer Lovenox if cancer diagnosis, or apixaban. Okay to switch and temporarily come hold if EUS required. CT head this admission shows no acute changes. TSH 1.13. (4) Hyperlipidemia: Continue atorvastatin 80 mg p.o. daily (5) DM type 2 (diabetes mellitus, type 2): HbA1c 9.8. Consulted glycemic pharmacy control. Given his extensive comorbid disease would recommend he is not discharged on linagliptin or glyburide especially as his suspected pancreatic cancer progresses he will likely be insulin-dependent. (6) HTN (hypertension): Hypertensive urgency on admission. Continue on amlodipine and metoprolol for now. IV hydralazine as needed (7) Hypertensive crisis: As above (8) Coronary artery disease: Not on asa or plavix as recently stopped by neurology, will not restart as would delay EUS if this is to take place. Continue statin. History of stents but patient thinks > 2 years ago. Under [facility] (Gertrude Ndiaye) as per GI note. Not known to [facility] cardiology as discussed with Dr Cha. Will consult [facility] cardiology as loop recorder previously placed by Dr Hung. (9) Status post transcatheter aortic valve replacement: Consult cardiology to determine antiplatelets required to be started only after any biopsy. (10) Alcohol use disorder: Patient denies ongoing alcohol use today. He reports no alcohol intake since his January admission. Continue on thiamine (11) DVT prophylaxis: PT/INR daily. Currently supratherapeutic INR, will only reverse with vitamin K if planning on EUS and I have been unable to contact GI back to potentially arrange this. Potentially INR may be elevated due to suspected liver metastatic disease (12) Discharge planning issues: Will need PT and OT evaluations prior to discharge. Subjective Patient reports no real change in his abdominal pain. Eating well with no nausea or vomiting. No constipation or diarrhea. Patient is a poor historian and cannot tell me anything about his TAVR in September and appeared oblivious to this when mentioned. He believes he has some stents in his heart but is unable to tell me when or where he had these, possibly [place]. Patient gave verbal permission to contact anyone on his contact list, or numbers contacted and I was unable to get through to either of his 2 friends listed. Review of Systems Review of Systems: All systems reviewed & are unremarkable except as noted in HPI & below Physical Exam Constitutional: + ill appearing and + obese; + not well nourished and no acute distress Eyes: + anicteric sclerae; normal pupil size ENMT: external ear and nose normal, oropharynx normal Neck: trachea midline Respiratory: normal respiratory effort, lungs clear to auscultation Cardiovascular: Rate/Rhythm: regular rate and regular rhythm Heart Sounds: no murmur Vessels: no JVD Extremities: normal capillary refill; no pedal edema Gastrointestinal (Abdomen): Inspection/Auscultation: normal bowel sounds; abdomen not distended Percussion/Palpation: + abdomen tender (Mild in the epigastric/left upper quadrant on deep palpation) and abdomen soft; no guarding and abdomen not rigid Musculoskeletal: no cyanosis or clubbing, extremities motor strength 5/5 Skin: no rashes, warm and dry Neurologic: moves all extremities, awake and + confused; no focal motor deficits Motor/Sensory: no tremor, no pronator drift and no sensory deficit Psychiatric: Orientation: alert and oriented x 3 Eye Contact: good eye contact Affect: euthymic affect Insight: + limited insight Results & Data Vital Signs (Past 12 Hours) Vital Signs Temp Pulse Pulse Resp BP Pulse Ox 03/30/19 16:00 54 L 03/30/19 15:44 36.6 C 54 L 18 149/89 H 98 03/30/19 10:54 36.8 C 61 16 161/90 H 98 03/30/19 07:47 37.1 C 60 18 186/89 H 96 PG Care Time/CCT Total # of Minutes Spent Total Time Spent with Patient: Total time spent is greater than 50% in coordination of care (as documented) at patient's floor/unit and/or counseling patient: (1) DM type 2 (diabetes mellitus, type 2) Diabetes mellitus complication status: with hyperglycemia 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 transplanted heart: [place] heart Associated angina: without angina Qualified Code(s): I25.10 - Atherosclerotic heart disease of [place] coronary artery without angina pectoris (3) Hyperlipidemia Hyperlipidemia type: unspecified Qualified Code(s): E78.5 - Hyperlipidemia, unspecified (4) Pancreatitis Acute pancreatitis complication: unspecified Chronicity: acute Pancreatitis type: unspecified pancreatitis type Qualified Code(s): K85.90 - Acute pancreatitis without necrosis or infection, unspecified (5) HTN (hypertension) Hypertension type: unspecified Qualified Code(s): I10 - Essential (primary) hypertension (6) CVA (cerebral vascular accident) CVA mechanism: unspecified Qualified Code(s): I63.9 - Cerebral infarction, unspecified
[2019-03-30] MEDS ORDERED: HydrALAZINE HCL 20 MG/ML VIAL IV PRN (22:22)
[2019-03-31] MEDS: LACTATED RINGER'S 1,000 ML IV SCH ×3 (02:01→17:25)
[2019-03-31] MEDS: MoRPHine SULFATE 4 MG/ML 1 ML CARP\\VIAL IV PRN ×3 (08:04→23:44)
[2019-03-31] MEDS: INSULIN ASPART 100 UNITS/ML 3 ML PEN SC SCH ×4 (08:11→20:42)
[2019-03-31 08:12] LABS: Basophils # (auto) 0.02 K/uL (0-0.2); Basophils % (auto) 0.3 %; Eosinophils # (auto) 0.08 K/uL (0-0.5); Eosinophils % (auto) 1.1 %; Hematocrit (blood only) 33.1 % (42-52); Hemoglobin 11.6 g/dL (14.0-18.0); Immature Granulocytes # (auto) 0.02 K/uL (0.00-0.02); Immature Granulocytes % (auto) 0.3 %; Lymphocytes # (auto) 1.59 K/uL (1.2-3.4); Lymphocytes % (auto) 21.7 %; Mean Corpuscular Hemoglobin 30.1 pg (25-34); Mean Corpuscular Volume 85.8 fL (80-100); Mean Platelet Volume 10.3 fL (7.4-10.4); Monocytes # (auto) 0.74 K/uL (0.11-0.59); Monocytes % (auto) 10.1 %; Neutrophils # (auto) 4.89 K/uL (1.4-6.5); Neutrophils % (auto) 66.5 %; Platelet Count 129 K/uL (130-400); RDW Coefficient of Variation 13.7 % (11.5-14.5); RDW Standard Deviation 42.9 fL (36.4-46.3); Red Blood Count 3.86 M/uL (4.7-6.1); White Blood Count 7.34 K/uL (4.8-10.8)
[2019-03-31] MEDS: OLMESARTAN MEDOXOMIL 20 MG TAB PO SCH (08:12)
[2019-03-31] MEDS: METOPROLOL TARTRATE 25 MG TAB PO SCH ×2 (08:12→20:21)
[2019-03-31] MEDS: AMLODIPINE BESYLATE 5 MG TAB PO SCH (08:12)
[2019-03-31] MEDS: ATORVASTATIN 40 MG TAB PO SCH (08:13)
[2019-03-31] MEDS: FLUOXETINE HCL 10 MG CAP PO SCH (08:13)
[2019-03-31] MEDS: INSULIN GLARGINE SOLOSTAR 100 UNITS/ML 3 ML PEN SC SCH (08:14)
[2019-03-31 08:20] LABS: INR 2.5 (0.9-1.1); Prothrombin Time 23.8 Seconds (9.0-12.0)
[2019-03-31 08:53] LABS: Albumin Globulin Ratio 1.1 (0.9-2); Albumin Level 3.4 gm/dl (3.4-5.0); Bilirubin,Total 1.8 mg/dl (0.2-1); Calcium 9.7 mg/dl (8.5-10.1); Creatinine Clr Calc Pharmacy 73.1 ml/min; Est GFR (Non-African American) 77.7; Globulin 3.2 gm/dl (2.5-4.0); Total Protein 6.6 gm/dl (6.4-8.2)
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
--- NOTE | 2019-03-31 11:55 | Hospitalist Progress Note ---
Date of Service March 31, 2019 Assessment & Plan (1) Pancreatic mass: No biopsy confirmed cancer despite mass found in January of this year. Discussed with Dr Tyson and reports not wanting to perform EUS while on ASA, Plavix, warfarin or during acute pancreatitis episode. Reportedly on aspirin and Plavix due to TAVR in September with cardiology note scanned in [facility] noting he should be on this for 6 months. Patient is currently off aspirin and Plavix after stopping at his neurology appointment on March 06. Appreciate consult [facility] cardiology and requested outpatient records. As for his anticoagulation, this was discussed with Dr. Holcomb - recommended switching anticoagulation to Lovenox or apixaban as below, okay to hold for biopsy. Discussed with Dr. Hung of Cardiology-recommends apixiban also, however pt reports this was cost prohibitive in the past--> will brown out for him now and if too costly, plan to go back on Coumadin after pancreas biopsy INR was supratherapeutic and now trending downward with holding coumadin--> INR 2.5 -continue to hold coumadin for biopsy now planned as outpt for this Sunday Necrotic mass - blood cultures pending, no indication for antibiotics at present. -CA 19-9 pending -continue pain control but convert to Roxanol today and try to wean off IV morphine -add on Miralax and daily senna/docusate for constipation related to opioids (2) Pancreatitis: I am unconvinced this is acute pancreatitis. Abd pain is secondary to pancreatic mass Lipase has trended down with bowel rest and IVFs Patient is a poor historian however reports pain is intermittent and ongoing for the last month and he came to the ER as it just has not improved over the last month rather than it becoming much worse. His lipase is minimally above diagnosis of acute pancreatitis on admission. Previous hospitalist discussed with Dr Ramires of Radiology and confirmed no imaging evidence of pancreatitis, much more convincing diagnosis of pancreatic cancer. -adv to low fat diet today -continue IVFs Triglycerides unremarkable Continue morphine for pain management but conver to po Roxanol as above (3) CVA (cerebral vascular accident): Recent history of multiple bilateral strokes thought to be cardioembolic. Loop recorder - no atrial fibrillation events Suspected hypercoagulable state due to cancer Discussed with Dr. Holcomb who reported warfarin was chosen by patient consent - would prefer Lovenox if cancer diagnosis, or apixaban. See discussion as above CT head this admission shows no acute changes. TSH 1.13. -dc ASA, Plavix permananently at this time (4) Hyperlipidemia: Continue atorvastatin 80 mg p.o. daily (5) DM type 2 (diabetes mellitus, type 2): HbA1c 9.8. Consulted glycemic pharmacy control. Given his extensive comorbid disease would recommend he is not discharged on linagliptin or glyburide especially as his suspected pancreatic cancer progresses he will likely be insulin-dependent. -will plan for insulin upon discharge with lantus/Novolog (6) HTN (hypertension): Hypertensive urgency on admission. BPs now improved but high -increase amlodipine to 10mg daily -continue same metoprolol tartrate 12.5mg po bid - IV hydralazine as needed (7) Hypertensive crisis: As above (8) Coronary artery disease: Not on asa or plavix as recently stopped by neurology, will not restart as would delay EUS if this is to take place. Continue statin. History of stents but patient thinks > 2 years ago. Under [facility]iology (Gertrude Ndiaye) as per GI note Will consult [facility] cardiology as loop recorder previously placed by Dr Hung. APpreciate consult -continue metoprolol (9) Status post transcatheter aortic valve replacement: Consult cardiology to determine antiplatelets required -recommends NOT restarting DAPT as has been 6 months since surgery and is now on anticoagulation (10) Alcohol use disorder: Patient denies ongoing alcohol use today. He reports no alcohol intake since his January admission. Continue on thiamine (11) Liver lesion: seen on imaging, could be mets? (12) Elevated LFTs: secondary to liver lesions seen on imaging, could be mets? Not significantly elevated but will monitor (13) DVT prophylaxis: PT/INR daily. Previous coumadin use Dispo-remain hospitalized (14) Discharge planning issues: Will need PT and OT evaluations prior to discharge. Subjective Pt still having abdominal pain requiring morphine IV. He is ready to try regular food today though. No BM in 2 days. Denies chest pain or SOB. States he tried to get Eliquis after his heart valve surgery and was too expensive. He cannot recall if he was told if he had A-fib or not at that time. Tele with NSR, rates 80s, 50s overnight Discussed case with Cardiology Review of Systems Review of Systems: All systems reviewed & are unremarkable except as noted in HPI & below Physical Exam Constitutional: WD/WN, vitals as above Eyes: + anicteric sclerae ENMT: external ear and nose normal, oropharynx normal Neck: trachea midline, no thyromegaly Respiratory: normal respiratory effort, lungs clear to auscultation Cardiovascular: RRR, no murmur, no edema Chest (Breasts): Chest: normal inspection of chest Gastrointestinal (Abdomen): Inspection/Auscultation: abdomen normal to inspection and normal bowel sounds; abdomen not distended Percussion/Palpation: + abdomen tender (mild, in epigastric region, no guarding or rebound) and abdomen soft Musculoskeletal: Extremities: extremities normal to inspection; no cyanosis and no clubbing Skin: no rashes, warm and dry Neurologic: moves all extremities and awake; no focal motor deficits Psychiatric: A+Ox3, euthymic affect Lymphatic: no lymphedema Results & Data Vital Signs (Past 12 Hours) Vital Signs Temp Pulse Pulse Resp BP BP Pulse Ox 03/31/19 08:00 36.9 C 66 18 178/69 H 97 03/31/19 07:25 56 L 03/31/19 04:06 37 C 64 18 176/96 H 97 03/31/19 00:02 36.8 C 50 L 18 168/74 H 97 Laboratory Results 03/31/19 03/31/19 03/31/19 Range/Units 11:49 07:50 07:50 WBC (4.8-10.8) K/uL RBC (4.7-6.1) M/uL Hgb (14.0-18.0) g/dL Hct (42-52) % MCV (80-100) fL MCH (25-34) pg MCHC (32-36) g/dL RDW Std Deviation (36.4-46.3) fL RDW Coeff of [place] (11.5-14.5) % Plt Count (130-400) K/uL MPV (7.4-10.4) fL Immature Gran % (Auto) % Neut % (Auto) % Lymph % (Auto) % [place] % (Auto) % Eos % (Auto) % Baso % (Auto) % Immature Gran # (Auto) (0.00-0.02) K/uL Neut # (Auto) (1.4-6.5) K/uL Lymph # (Auto) (1.2-3.4) K/uL [place] # (Auto) (0.11-0.59) K/uL Eos # (Auto) (0-0.5) K/uL Baso # (Auto) (0-0.2) K/uL PT 23.8 H (9.0-12.0) Seconds INR 2.5 H (0.9-1.1) Sodium 139 (136-145) mmol/L Potassium 4.0 (3.5-5.1) mmol/L Chloride 107 (98-107) mmol/L Carbon Dioxide 25 (21-32) mmol/L Anion Gap 7.0 (3-11) BUN 19 H (7-18) mg/dl Creatinine 1.01 (0.6-1.4) mg/dl Est Cr Clr Drug Dosing 73.1 ml/min Est GFR ( Amer) 90.0 Est GFR (Non-Af Amer) 77.7 BUN/Creatinine Ratio 19.0 (10-20) Glucose 144 H (70-99) mg/dl POC Glucose 188 H (70-99) Calcium 9.7 (8.5-10.1) mg/dl Total Bilirubin 1.8 H (0.2-1) mg/dl AST 24 (15-37) U/L ALT 29 (12-78) U/L Alkaline Phosphatase 126 H (45-117) U/L Total Protein 6.6 (6.4-8.2) gm/dl Albumin 3.4 (3.4-5.0) gm/dl Globulin 3.2 (2.5-4.0) gm/dl Albumin/Globulin Ratio 1.1 (0.9-2) Lipase 875 H (73-393) U/L 03/31/19 03/31/19 03/30/19 Range/Units 07:50 07:27 20:19 WBC 7.34 (4.8-10.8) K/uL RBC 3.86 L (4.7-6.1) M/uL Hgb 11.6 L (14.0-18.0) g/dL Hct 33.1 L (42-52) % MCV 85.8 (80-100) fL MCH 30.1 (25-34) pg MCHC 35.0 (32-36) g/dL RDW Std Deviation 42.9 (36.4-46.3) fL RDW Coeff of [place] 13.7 (11.5-14.5) % Plt Count 129 L (130-400) K/uL MPV 10.3 (7.4-10.4) fL Immature Gran % (Auto) 0.3 % Neut % (Auto) 66.5 % Lymph % (Auto) 21.7 % [place] % (Auto) 10.1 % Eos % (Auto) 1.1 % Baso % (Auto) 0.3 % Immature Gran # (Auto) 0.02 (0.00-0.02) K/uL Neut # (Auto) 4.89 (1.4-6.5) K/uL Lymph # (Auto) 1.59 (1.2-3.4) K/uL [place] # (Auto) 0.74 H (0.11-0.59) K/uL Eos # (Auto) 0.08 (0-0.5) K/uL Baso # (Auto) 0.02 (0-0.2) K/uL PT (9.0-12.0) Seconds INR (0.9-1.1) Sodium (136-145) mmol/L Potassium (3.5-5.1) mmol/L Chloride (98-107) mmol/L Carbon Dioxide (21-32) mmol/L Anion Gap (3-11) BUN (7-18) mg/dl Creatinine (0.6-1.4) mg/dl Est Cr Clr Drug Dosing ml/min Est GFR ( Amer) Est GFR (Non-Af Amer) BUN/Creatinine Ratio (10-20) Glucose (70-99) mg/dl POC Glucose 158 H 175 H (70-99) Calcium (8.5-10.1) mg/dl Total Bilirubin (0.2-1) mg/dl AST (15-37) U/L ALT (12-78) U/L Alkaline Phosphatase (45-117) U/L Total Protein (6.4-8.2) gm/dl Albumin (3.4-5.0) gm/dl Globulin (2.5-4.0) gm/dl Albumin/Globulin Ratio (0.9-2) Lipase (73-393) U/L 03/30/19 Range/Units 16:25 WBC (4.8-10.8) K/uL RBC (4.7-6.1) M/uL Hgb (14.0-18.0) g/dL Hct (42-52) % MCV (80-100) fL MCH (25-34) pg MCHC (32-36) g/dL RDW Std Deviation (36.4-46.3) fL RDW Coeff of [place] (11.5-14.5) % Plt Count (130-400) K/uL MPV (7.4-10.4) fL Immature Gran % (Auto) % Neut % (Auto) % Lymph % (Auto) % [place] % (Auto) % Eos % (Auto) % Baso % (Auto) % Immature Gran # (Auto) (0.00-0.02) K/uL Neut # (Auto) (1.4-6.5) K/uL Lymph # (Auto) (1.2-3.4) K/uL [place] # (Auto) (0.11-0.59) K/uL Eos # (Auto) (0-0.5) K/uL Baso # (Auto) (0-0.2) K/uL PT (9.0-12.0) Seconds INR (0.9-1.1) Sodium (136-145) mmol/L Potassium (3.5-5.1) mmol/L Chloride (98-107) mmol/L Carbon Dioxide (21-32) mmol/L Anion Gap (3-11) BUN (7-18) mg/dl Creatinine (0.6-1.4) mg/dl Est Cr Clr Drug Dosing ml/min Est GFR ( Amer) Est GFR (Non-Af Amer) BUN/Creatinine Ratio (10-20) Glucose (70-99) mg/dl POC Glucose 99 (70-99) Calcium (8.5-10.1) mg/dl Total Bilirubin (0.2-1) mg/dl AST (15-37) U/L ALT (12-78) U/L Alkaline Phosphatase (45-117) U/L Total Protein (6.4-8.2) gm/dl Albumin (3.4-5.0) gm/dl Globulin (2.5-4.0) gm/dl Albumin/Globulin Ratio (0.9-2) Lipase (73-393) U/L BCxs NGTD PG Care Time/CCT Total # of Minutes Spent Total Time Spent with Patient: Total time spent is greater than 50% in coordination of care (as documented) at patient's floor/unit and/or counseling patient: (1) Pancreatitis Acute pancreatitis complication: unspecified Chronicity: acute Pancreatitis type: unspecified pancreatitis type Qualified Code(s): K85.90 - Acute pancreatitis without necrosis or infection, unspecified (2) CVA (cerebral vascular accident) CVA mechanism: unspecified Qualified Code(s): I63.9 - Cerebral infarction, unspecified (3) Hyperlipidemia Hyperlipidemia type: unspecified Qualified Code(s): E78.5 - Hyperlipidemia, unspecified (4) DM type 2 (diabetes mellitus, type 2) 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 transplanted heart: [place] heart Associated angina: without angina Qualified Code(s): I25.10 - Atherosclerotic heart disease of [place] coronary artery without angina pectoris
[2019-03-31] MEDS ORDERED: AMLODIPINE BESYLATE 5 MG TAB PO STA (12:18)
[2019-03-31] MEDS: POLYETHYLENE (MIRALAX) 17 GM PACK PO SCH (12:46)
[2019-03-31] MEDS: MoRPHine SULFATE 10 MG/0.5 ML UDP PO PRN ×2 (12:47→20:48)
--- NOTE | 2019-03-31 14:31 | Gastroenterology Progress Note ---
Date of Service March 31, 2019 Assessment & Plan (1) Pancreatic mass: Mr. Méndez is a 63 yr old male with a pancreas mass and liver masses suspicious for pancreatic cancer with liver mets. We recommend OP EUS for tissue dx. Pt initially indicated an ability to get a friend to bring him in for an OP procedure. EUS was set up for this Sunday at [facility]. Afterwards, he told us that although he hasn't asked the friend that he was thinking of previously, he doesn't believe that he will be able to arrange a ride. We are unable to office EUS here in [place] this week. We can offer [facility] this week or [facility] sometime next week. Prognosis will be based on path results from EUS sampling of pancreas lesion. For now, diet as tolerated. No further GI procedures planned as an OP. Present on Admission?: Yes Supervising Physician Co-Signing Physician Notes I have personally seen and examined the patient with CHELSEA Sommer. Her note reflects my exam and findings. I agree with her impression and plan. Will arrange out patient testing for panc/liver lesions. May need social work assistance with transportation. David Phan M.D. Subjective Mr. Méndez is a 63-year-old male admitted for acute pancreatitis. CT and MRI with pancreas mass with suspicious liver lesions. Patient able to eat regular diet, able to walk to the bathroom, but reports that abdominal pain persists. Initially stated he was no better though clarified that abdominal pain was level 6 or 7 when he arrived and level 4-5 now. Review of Systems Review of Systems: ROS: Poor historian, contradicting his own answers to que stions but basically c/o abdominal , no other issues. Gen: Denies weakness, fevers, weight loss Eyes: No eye redness, or pain, no recent vision changes Resp: No SOB, no cough Cardio: No palpitations/irregular beats, no chest pain GI: + abdominal pain, no nausea/vomiting : Denies pain on urination Skin: No jaundice, itching or new rashes Physical Exam Constitutional: WD/WN, vitals as above Eyes: PERRL, conjunctivae normal, anicteric sclerae ENMT: external ear and nose normal, oropharynx normal Neck: trachea midline, no thyromegaly Respiratory: normal respiratory effort, lungs clear to auscultation Cardiovascular: RRR, no murmur, no edema Gastrointestinal (Abdomen): Percussion/Palpation: + abdomen tender (mild epigastric tenderness on palpation) and abdomen soft; no guarding and no ascites hypoactive BS Skin: no rashes, warm and dry Neurologic: PERRL, EOMI, accommodation nl, no face palsy, no dysarthria Psychiatric: A+Ox3, euthymic affect Lymphatic: no cervical or axillary lymphadenopathy Results & Data Vital Signs (Past 12 Hours) Vital Signs Temp Pulse Pulse Resp BP Pulse Ox 03/31/19 12:31 37.0 C 61 20 194/96 H 98 03/31/19 08:00 36.9 C 66 18 178/69 H 97 03/31/19 07:25 56 L 03/31/19 04:06 37 C 64 18 176/96 H 97
[2019-03-31] MEDS ORDERED: DOCUSATE SODIUM/SENNA 50/8.6MG TAB PO SCH (21:00)
[2019-04-01] MEDS: LACTATED RINGER'S 1,000 ML IV SCH ×2 (01:49→09:54)
[2019-04-01 05:53] LABS: Basophils # (auto) 0.05 K/uL (0-0.2); Basophils % (auto) 0.7 %; Eosinophils # (auto) 0.12 K/uL (0-0.5); Eosinophils % (auto) 1.6 %; Hematocrit (blood only) 32.8 % (42-52); Hemoglobin 11.4 g/dL (14.0-18.0); Immature Granulocytes # (auto) 0.02 K/uL (0.00-0.02); Immature Granulocytes % (auto) 0.3 %; Lymphocytes # (auto) 1.82 K/uL (1.2-3.4); Lymphocytes % (auto) 24.7 %; Mean Corpuscular Hemoglobin 29.8 pg (25-34); Mean Corpuscular Hgb Conc 34.8 g/dL (32-36); Mean Corpuscular Volume 85.6 fL (80-100); Monocytes # (auto) 0.87 K/uL (0.11-0.59); Monocytes % (auto) 11.8 %; Neutrophils % (auto) 60.9 %; Platelet Count 125 K/uL (130-400); RDW Coefficient of Variation 13.7 % (11.5-14.5); RDW Standard Deviation 42.9 fL (36.4-46.3); Red Blood Count 3.83 M/uL (4.7-6.1); White Blood Count 7.38 K/uL (4.8-10.8)
[2019-04-01 06:08] LABS: INR 2.2 (0.9-1.1); Prothrombin Time 20.9 Seconds (9.0-12.0)
[2019-04-01 06:26] LABS: Albumin Level 3.1 gm/dl (3.4-5.0); BUN Creatinine Ratio 17.6 (10-20); Bilirubin Direct 0.4 mg/dl (0-0.2); Calcium 9.6 mg/dl (8.5-10.1); Creatinine Clr Calc Pharmacy 68.3 ml/min; Est GFR (Non-African American) 71.6; Potassium 4.7 mmol/L (3.5-5.1)
[2019-04-01 06:27] LABS: Bilirubin,Total 1.8 mg/dl (0.2-1); Total Protein 6.4 gm/dl (6.4-8.2)
[2019-04-01] MEDS: OLMESARTAN MEDOXOMIL 20 MG TAB PO SCH (07:35)
[2019-04-01] MEDS: FLUOXETINE HCL 10 MG CAP PO SCH (07:35)
[2019-04-01] MEDS: AMLODIPINE BESYLATE 5 MG TAB PO SCH (07:36)
[2019-04-01] MEDS: ATORVASTATIN 40 MG TAB PO SCH (07:36)
[2019-04-01] MEDS: METOPROLOL TARTRATE 25 MG TAB PO SCH ×2 (07:36→21:01)
[2019-04-01] MEDS: POLYETHYLENE (MIRALAX) 17 GM PACK PO SCH (07:37)
[2019-04-01] MEDS: INSULIN ASPART 100 UNITS/ML 3 ML PEN SC SCH ×4 (08:21→20:59)
[2019-04-01] MEDS: INSULIN GLARGINE SOLOSTAR 100 UNITS/ML 3 ML PEN SC SCH (08:22)
[2019-04-01] MEDS: MoRPHine SULFATE 10 MG/0.5 ML UDP PO PRN ×2 (12:23→18:18)
--- NOTE | 2019-04-01 12:46 | Gastroenterology Progress Note ---
Date of Service April 01, 2019 Assessment & Plan (1) Pancreatic mass: Mr. Méndez is a 63 yr old male with pancreatitis which seems clinically resolved, but also with a pancreas mass and liver masses suspicious for pancreatic cancer with liver mets. We recommend OP EUS for tissue dx. We are not able to provide as an IP during this hospital stay. Doubt that transfer to tertiary care center is justified as he is medically stable. Pt does not seem able to arrange OP transportation for this. If he remains in IP here on - would consider hospital to hospital transfer to [facility] for EUS on Sunday. Will place a elementary school social worker consult to help pt arrange transportation for OP testing, office visits etc. No further GI testing recommended during this admission. Supervising Physician Co-Signing Physician Notes I have personally seen and examined the patient with CHELSEA Sommer. Her note reflects my exam and findings. I agree with her impression and plan. Have arranged out patient EUS this Sunday. This was discussed with patient and primary team. David Phan M.D. Subjective Mr. Méndez is a 63-year-old male admitted for acute pancreatitis. CT and MRI with pancreas mass with suspicious liver lesions. Patient able to eat regular diet, able to walk to the bathroom, able to sit up in the bedside chair, but reports that his stomach feels, "funny," though not pain or nausea. Able to eat regular consistency low fat diet w/o pain or nausea. When asked says he is not passing gas or having BMs. Abdomen exam is benign and no distention. Regarding our GI plan to do EUS for tissue dx at [place] this Sunday. Pt tells me that he can not get a ride. I asked if he would be able to arrange a ride to [facility] and he answered no. He tells me that his friend is not answering the phone. Review of Systems Review of Systems: ROS: Gen: Denies weakness, fevers, weight loss Eyes: No eye redness, or pain, no recent vision changes Resp: No SOB, no cough Cardio: No palpitations/irregular beats, no chest pain GI: See subjective, otherwise normal : Denies pain on urination Skin: No jaundice, itching or new rashes Physical Exam Constitutional: WD/WN, vitals as above Eyes: PERRL, conjunctivae normal, anicteric sclerae ENMT: external ear and nose normal, oropharynx normal Neck: trachea midline, no thyromegaly Respiratory: normal respiratory effort, lungs clear to auscultation Cardiovascular: RRR, no murmur, no edema Gastrointestinal (Abdomen): normal bowel sounds, soft, nontender, no hepatosplenomegaly Skin: no rashes, warm and dry Neurologic: PERRL, EOMI, accommodation nl, no face palsy, no dysarthria Psychiatric: A+Ox3, euthymic affect Lymphatic: no cervical or axillary lymphadenopathy Results & Data Vital Signs (Past 12 Hours) Vital Signs Temp Pulse Pulse Resp BP Pulse Ox 04/01/19 11:41 36.7 C 60 18 152/82 H 97 04/01/19 10:07 61 04/01/19 08:35 60 180/92 H 04/01/19 07:30 36.7 C 59 L 16 185/96 H 90 04/01/19 04:20 36.5 C 55 L 18 179/85 H 97 Laboratory Results Hb 11, Hct 32, BUN 19, Cr 1.08. T bili 1.4, D bili 1.4, Alk Phos 120 Diagnostic Findings Abd Pelvis CT 03/28: 1. Enlarging pancreatic head mass measuring 26 mm. A pancreatic adenocarcinoma is the diagnosis of exclusion. There is associated infiltration of the fat surrounding the superior mesenteric artery, a finding viewed as suspicious for tumor encasement 2. Interval development of multiple subcentimeter hypodense hepatic lesions viewed as suspicious for metastatic disease. 3. No evidence of bowel obstruction. No evidence of free air 4. Normal appendix. No evidence of acute diverticulitis. Abd MRI 03/28; 1. Redemonstration of the pancreatic mass centered in the uncinate process measuring up to 3.2 cm and effacing less than 180 degrees of the superior mesenteric artery. This is highly suspicious for neoplasm, most likely pancre atic ductal adenocarcinoma. A significant portion of this mass may be necrotic given the nonenhancing central/measurable portion. 2. Multiple subcentimeter lesions in the left hepatic lobe of similar signal characteristics. Metastatic disease is of primary concern. Size of these lesions may be difficult to sample by fine-needle aspiration. Evaluation with ultrasound could be considered to assess for visualization by this modality. 3. No lymphadenopathy.
--- NOTE | 2019-04-01 15:24 | Pharmacy Report ---
Pharmacy Glycemic Short Note 2 - Date of Service April 01, 2019 - Glycemic Short BSG Results (Last 24 hours): 03/31/19 03/31/19 04/01/19 16:05 20:41 05:21 Glucose 143 H POC Glucose 158 H 168 H 04/01/19 04/01/19 07:15 11:25 Glucose POC Glucose 153 H 162 H OUTPATIENT ANTIDIABETIC REGIMEN: * Lantus 12 units, glyburide 5 mg BID, Linagliptin 5 mg daily * A1c 9.8% 03/29 ASSESSMENT: * Patient received 44 units of insulin yesterday * 14 units of basal * 30 units of prandial/correctional * Patient's blood sugars have been stable ranging from 158-188 yesterday * Fasting blood sugar 153, has been trending down slowly, regimen is currently more weighted to prandial insulin, but fasting BSGs close to target, therefore will only increase slightly to 15 units tomorrow. * Will continue with current novolog parameters PLAN FOR INPATIENT GLYCEMIC CONTROL: * Hold outpatient oral diabetes medications * Basal insulin * Lantus 15 units QAM * Bolus insulin * NovoLog per scale ACHS or Q6hrs while NPO * Goal Range: Low 110 mg/dL - High 140 mg/dL * Correction Factor: 20 mg/dL/unit * Nutritional / Prandial insulin per carb ratio of 1 unit per 6 grams CHO consumed PLAN FOR DISCHARGE: * Anticipating plan to switch to basal/bolus outpatient regimen * Would recommend increasing lantus to 15 units qAM * If patient is able to calculate own correction/carb ratio- would start with correction factor 30, carb ratio of 10 for outpatient use- and titrate down based on outpatient BSG results with close follow-up with outpatient provider * Alternatively start prandial mealtime insulin with 5 units of novolog plus correctional sliding scale at ACHS- again this should be titrated with outpatient provider * Moderate dose SSI Blood Sugar 70-150 administer 0 units Blood Sugar 151-200 administer 2 units Blood Sugar 201-250 administer 4 units Blood Sugar 251-300 administer 6 units Blood Sugar 301-350 administer 8 units Blood Sugar 351-400 administer 10 units Blood Sugar >400 administer 12 units and call
[2019-04-01] MEDS ORDERED: bisacodyL 10 MG SUPP PR STA (16:35)
--- NOTE | 2019-04-01 16:41 | Hospitalist Progress Note ---
Date of Service April 01, 2019 Assessment & Plan (1) Pancreatic mass: Pancreatic mass found in January of this year and has not yet been biopsied due to ongoing other medical issues (recent CVA, on antiplatelets for TAVR, etc.) Reportedly on aspirin and Plavix due to TAVR in September with cardiology note scanned in [facility] noting he should be on this for 6 months. Patient is currently off aspirin and Plavix after stopping at his neurology appointment on March 06. Appreciate consult [facility] cardiology and requested outpatient records. As for his anticoagulation, this was discussed with Dr. Holcomb - recommended switching anticoagulation to Lovenox or apixaban as below, okay to hold for biopsy. Discussed with Dr. Hung of Cardiology-recommends apixaban also, however pt reports this was cost prohibitive in the past--> will brown out for him now and if too costly, plan to go back on Coumadin after pancreas biopsy [facility] GI consultation--> needs EUS with FNA of mass INR was supratherapeutic and now trending downward with holding coumadin--> INR 2.2 -continue to hold coumadin for biopsy now planned as outpt for this Sunday at [facility]--> will plan to transfer to [place] on for procedure Necrotic mass - blood cultures NGTD, no indication for antibiotics at present. -CA 19-9 pending -continue pain control -will increase Roxanol today to 15mg po q6h and dc IV morphine -continue on Miralax and daily senna/docusate for constipation related to opioids, give Bisacodyl suppository x 1 now (2) Pancreatitis: He does not have acute pancreatitis. Abd pain is secondary to Chronic Pancreatitis in setting of possible pancreatic malignancy/pancreatic mass Lipase remains elevated despite IVFs, bowel rest and will likely remain that way due to mass Patient is a poor historian however reports pain is intermittent and ongoing for the last month and he came to the ER as it just has not improved over the last month rather than it becoming much worse. Previous hospitalist discussed with Dr Ramires of Radiology and confirmed no imaging evidence of pancreatitis, much more convincing diagnosis of pancreatic cancer. -dc IVFs -pain control -ok to continue low fat diet (3) CVA (cerebral vascular accident): Recent history of multiple bilateral strokes thought to be cardioembolic. Loop recorder - no atrial fibrillation events Suspected hypercoagulable state due to cancer Discussed with Dr. Holcomb who reported warfarin was chosen by patient - would prefer Lovenox if cancer diagnosis, or apixaban. See discussion as above CT head this admission shows no acute changes. TSH 1.13. -he has not been on ASA, Plavix since 03/06/19, but could be restarted on DOAC + ASA or DOAC alone if increased bleeding risk after pancreatic mass biopsy (4) Hyperlipidemia: Continue atorvastatin 80 mg p.o. daily (5) DM type 2 (diabetes mellitus, type 2): HbA1c 9.8. Consulted glycemic pharmacy control. Given his extensive comorbid disease would recommend he is not discharged on linagliptin or glyburide especially as his suspected pancreatic cancer progresses he will likely be insulin-dependent. -will plan for insulin upon discharge with lantus/Novolog (6) HTN (hypertension): Hypertensive urgency on admission. BPs now improved but remain high despite increased amlodipine dose -continue increased dose of amlodipine to 10mg daily -continue same metoprolol tartrate 12.5mg po bid-cannot titrate up due to low HR -increase olmesartan to 40mg daily-give an extra 20mg this evening and then 40mg daily in the AM tomorrow - IV hydralazine as needed (7) Hypertensive crisis: As above (8) Coronary artery disease: Not on asa or plavix as recently stopped by neurology, will restart ASA along with DOAC after biopsy as per Cardiology recommendation Continue statin. History of stents but patient thinks > 2 years ago. Under [facility] Cardiology (Gertrude Ndiaye) as per GI note Will consult [facility] cardiology as loop recorder previously placed by Dr Hung. APpreciate consult -continue metoprolol (9) Status post transcatheter aortic valve replacement: Consult cardiology to determine antiplatelets required -recommends ok to STOP DAPT as has been 6 months since surgery and is now on anticoagulation, but could restart ASA OR Plavix along with DOAC after pancreatic mass biopsy (10) Alcohol use disorder: Patient denies ongoing alcohol use today. He reports no alcohol intake since his January admission. Vit B1 levels normal in Jan, no need for replacement (11) Liver lesion: seen on imaging, could be mets? (12) Elevated LFTs: secondary to liver lesions seen on imaging, could be mets? Not significantly elevated but will monitor (13) DVT prophylaxis: PT/INR daily. Previous coumadin use Dispo-remain hospitalized (14) Discharge planning issues: Plan is now for transfer to [facility] on for procedure on Sunday. COuld come back here or be discharged to home from there. has great difficulty with transportation Case Management involved Subjective Having epigastric abdominal pain that is constant, improves somewhat with the morphine but he says the po morphine is not enough. He does not feel the pain worsens at all with eating and in fact has a good appetite. Denies N/V, but has not moved his bowels in many days. He does not like the Miralax and is not drinking it. He denies CP or SOB. He is still having trouble finding anyone that will be able ot help him get to his appointment for EUS this Sunday and is willing to stay here and be transferred to [place] for his procedure on Sunday. Discussed case with GI LINE CLOSER today and with Certified Physician'S Assistant. Tele with NSR, rates 50s-60s,, PVCs Review of Systems Review of Systems: All systems reviewed & are unremarkable except as noted in HPI & below Physical Exam Constitutional: WD/WN, vitals as above Eyes: + anicteric sclerae Neck: trachea midline, no thyromegaly Respiratory: normal respiratory effort, lungs clear to auscultation Cardiovascular: RRR, no murmur, no edema Chest (Breasts): Chest: normal inspection of chest Gastrointestinal (Abdomen): Inspection/Auscultation: abdomen normal to inspection and normal bowel sounds; abdomen not distended Percussion/Palpation: + abdomen tender (mild, in epigastric region, no guarding or rebound) and abdomen soft Musculoskeletal: Extremities: extremities normal to inspection; no cyanosis and no clubbing Skin: no rashes, warm and dry Neurologic: moves all extremities and awake; no focal motor deficits Psychiatric: A+Ox3, euthymic affect Lymphatic: no lymphedema Results & Data Vital Signs (Past 12 Hours) Vital Signs Temp Pulse Pulse Resp BP BP Pulse Ox 04/01/19 16:09 37.2 C 62 18 179/97 H 98 04/01/19 15:18 60 04/01/19 11:41 36.7 C 60 18 152/82 H 97 04/01/19 10:07 61 04/01/19 08:35 60 180/92 H 04/01/19 07:30 36.7 C 59 L 16 185/96 H 90 Laboratory Results 04/01/19 04/01/19 04/01/19 Range/Units 20:10 16:47 11:25 WBC (4.8-10.8) K/uL RBC (4.7-6.1) M/uL Hgb (14.0-18.0) g/dL Hct (42-52) % MCV (80-100) fL MCH (25-34) pg MCHC (32-36) g/dL RDW Std Deviation (36.4-46.3) fL RDW Coeff of [place] (11.5-14.5) % Plt Count (130-400) K/uL MPV (7.4-10.4) fL Immature Gran % (Auto) % Neut % (Auto) % Lymph % (Auto) % [place] % (Auto) % Eos % (Auto) % Baso % (Auto) % Immature Gran # (Auto) (0.00-0.02) K/uL Neut # (Auto) (1.4-6.5) K/uL Lymph # (Auto) (1.2-3.4) K/uL [place] # (Auto) (0.11-0.59) K/uL Eos # (Auto) (0-0.5) K/uL Baso # (Auto) (0-0.2) K/uL PT (9.0-12.0) Seconds INR (0.9-1.1) Sodium (136-145) mmol/L Potassium (3.5-5.1) mmol/L Chloride (98-107) mmol/L Carbon Dioxide (21-32) mmol/L Anion Gap (3-11) BUN (7-18) mg/dl Creatinine (0.6-1.4) mg/dl Est Cr Clr Drug Dosing ml/min Est GFR ( Amer) Est GFR (Non-Af Amer) BUN/Creatinine Ratio (10-20) Glucose (70-99) mg/dl POC Glucose 169 H 156 H 162 H (70-99) Calcium (8.5-10.1) mg/dl Total Bilirubin (0.2-1) mg/dl Direct Bilirubin (0-0.2) mg/dl AST (15-37) U/L ALT (12-78) U/L Alkaline Phosphatase (45-117) U/L Total Protein (6.4-8.2) gm/dl Albumin (3.4-5.0) gm/dl 04/01/19 04/01/19 04/01/19 Range/Units 07:15 05:21 05:21 WBC 7.38 (4.8-10.8) K/uL RBC 3.83 L (4.7-6.1) M/uL Hgb 11.4 L (14.0-18.0) g/dL Hct 32.8 L (42-52) % MCV 85.6 (80-100) fL MCH 29.8 (25-34) pg MCHC 34.8 (32-36) g/dL RDW Std Deviation 42.9 (36.4-46.3) fL RDW Coeff of [place] 13.7 (11.5-14.5) % Plt Count 125 L (130-400) K/uL MPV 10.0 (7.4-10.4) fL Immature Gran % (Auto) 0.3 % Neut % (Auto) 60.9 % Lymph % (Auto) 24.7 % [place] % (Auto) 11.8 % Eos % (Auto) 1.6 % Baso % (Auto) 0.7 % Immature Gran # (Auto) 0.02 (0.00-0.02) K/uL Neut # (Auto) 4.50 (1.4-6.5) K/uL Lymph # (Auto) 1.82 (1.2-3.4) K/uL [place] # (Auto) 0.87 H (0.11-0.59) K/uL Eos # (Auto) 0.12 (0-0.5) K/uL Baso # (Auto) 0.05 (0-0.2) K/uL PT (9.0-12.0) Seconds INR (0.9-1.1) Sodium 140 (136-145) mmol/L Potassium 4.7 D (3.5-5.1) mmol/L Chloride 107 (98-107) mmol/L Carbon Dioxide 28 (21-32) mmol/L Anion Gap 5.0 (3-11) BUN 19 H (7-18) mg/dl Creatinine 1.08 (0.6-1.4) mg/dl Est Cr Clr Drug Dosing 68.3 ml/min Est GFR ( Amer) 83.0 Est GFR (Non-Af Amer) 71.6 BUN/Creatinine Ratio 17.6 (10-20) Glucose 143 H (70-99) mg/dl POC Glucose 153 H (70-99) Calcium 9.6 (8.5-10.1) mg/dl Total Bilirubin 1.8 H (0.2-1) mg/dl Direct Bilirubin 0.4 H (0-0.2) mg/dl AST 23 (15-37) U/L ALT 29 (12-78) U/L Alkaline Phosphatase 120 H (45-117) U/L Total Protein 6.4 (6.4-8.2) gm/dl Albumin 3.1 L (3.4-5.0) gm/dl 04/01/19 Range/Units 05:21 WBC (4.8-10.8) K/uL RBC (4.7-6.1) M/uL Hgb (14.0-18.0) g/dL Hct (42-52) % MCV (80-100) fL MCH (25-34) pg MCHC (32-36) g/dL RDW Std Deviation (36.4-46.3) fL RDW Coeff of [place] (11.5-14.5) % Plt Count (130-400) K/uL MPV (7.4-10.4) fL Immature Gran % (Auto) % Neut % (Auto) % Lymph % (Auto) % [place] % (Auto) % Eos % (Auto) % Baso % (Auto) % Immature Gran # (Auto) (0.00-0.02) K/uL Neut # (Auto) (1.4-6.5) K/uL Lymph # (Auto) (1.2-3.4) K/uL [place] # (Auto) (0.11-0.59) K/uL Eos # (Auto) (0-0.5) K/uL Baso # (Auto) (0-0.2) K/uL PT 20.9 H (9.0-12.0) Seconds INR 2.2 H (0.9-1.1) Sodium (136-145) mmol/L Potassium (3.5-5.1) mmol/L Chloride (98-107) mmol/L Carbon Dioxide (21-32) mmol/L Anion Gap (3-11) BUN (7-18) mg/dl Creatinine (0.6-1.4) mg/dl Est Cr Clr Drug Dosing ml/min Est GFR ( Amer) Est GFR (Non-Af Amer) BUN/Creatinine Ratio (10-20) Glucose (70-99) mg/dl POC Glucose (70-99) Calcium (8.5-10.1) mg/dl Total Bilirubin (0.2-1) mg/dl Direct Bilirubin (0-0.2) mg/dl AST (15-37) U/L ALT (12-78) U/L Alkaline Phosphatase (45-117) U/L Total Protein (6.4-8.2) gm/dl Albumin (3.4-5.0) gm/dl PG Care Time/CCT Total # of Minutes Spent Total Time Spent with Patient: Total time spent is greater than 50% in coordination of care (as documented) at patient's floor/unit and/or counseling patient: (1) DM type 2 (diabetes mellitus, type 2) Diabetes mellitus complication status: with hyperglycemia 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 transplanted heart: [place] heart Qualified Code(s): I25.10 - Atherosclerotic heart disease of [place] coronary artery without angina pectoris (3) Hyperlipidemia Hyperlipidemia type: unspecified Qualified Code(s): E78.5 - Hyperlipidemia, unspecified (4) Pancreatitis Acute pancreatitis complication: unspecified Chronicity: acute Pancreatitis type: unspecified pancreatitis type Qualified Code(s): K85.90 - Acute pancreatitis without necrosis or infection, unspecified (5) HTN (hypertension) Hypertension type: unspecified Qualified Code(s): I10 - Essential (primary) hypertension (6) CVA (cerebral vascular accident) CVA mechanism: unspecified Qualified Code(s): I63.9 - Cerebral infarction, unspecified
[2019-04-01] MEDS: MoRPHine SULFATE 5 MG/0.25 ML UDP PO PRN (18:18)
[2019-04-01] MEDS ORDERED: OLMESARTAN MEDOXOMIL 20 MG TAB PO ONE (18:43)
[2019-04-01] MEDS: DOCUSATE SODIUM/SENNA 50/8.6MG TAB PO SCH (21:01)
[2019-04-02 06:25] LABS: Albumin Level 3.4 gm/dl (3.4-5.0); BUN Creatinine Ratio 18.6 (10-20); Bilirubin Direct 0.3 mg/dl (0-0.2); Calcium 9.6 mg/dl (8.5-10.1); Creatinine Clr Calc Pharmacy 68.9 ml/min; Est GFR (African American) 81.2; Est GFR (Non-African American) 70.1; Magnesium 1.5 mg/dl (1.8-2.4); Potassium 4.3 mmol/L (3.5-5.1)
[2019-04-02 06:26] LABS: INR 1.5 (0.9-1.1); Prothrombin Time 14.6 Seconds (9.0-12.0)
[2019-04-02] MEDS: OLMESARTAN MEDOXOMIL 40 MG TAB PO SCH (08:05)
[2019-04-02] MEDS: AMLODIPINE BESYLATE 5 MG TAB PO SCH (08:06)
[2019-04-02] MEDS: METOPROLOL TARTRATE 25 MG TAB PO SCH ×2 (08:06→20:06)
[2019-04-02] MEDS: ATORVASTATIN 40 MG TAB PO SCH (08:06)
[2019-04-02] MEDS: FLUOXETINE HCL 10 MG CAP PO SCH (08:07)
[2019-04-02] MEDS: POLYETHYLENE (MIRALAX) 17 GM PACK PO SCH (08:07)
[2019-04-02] MEDS: MoRPHine SULFATE 10 MG/0.5 ML UDP PO PRN ×2 (08:19→20:13)
[2019-04-02] MEDS: MoRPHine SULFATE 5 MG/0.25 ML UDP PO PRN ×2 (08:19→20:14)
[2019-04-02] MEDS: INSULIN ASPART 100 UNITS/ML 3 ML PEN SC SCH ×4 (08:55→20:12)
[2019-04-02] MEDS ORDERED: INSULIN GLARGINE SOLOSTAR 100 UNITS/ML 3 ML PEN SC SCH (09:00)
[2019-04-02] MEDS: MAGNESIUM SULFATE / D5W 1 GM/100 ML BAG IV SCH ×2 (11:06→12:14)
[2019-04-02] MEDS ORDERED: MAGNESIUM CITRATE 296 ML/BTL PO STA (16:52)
--- NOTE | 2019-04-02 16:52 | Hospitalist Progress Note ---
Date of Service April 02, 2019 Assessment & Plan (1) Pancreatic mass: Pancreatic mass found in January of this year and has not yet been biopsied due to ongoing other medical issues (recent CVA, on antiplatelets for TAVR, etc.) Reportedly on aspirin and Plavix due to TAVR in September with cardiology note scanned in [facility] noting he should be on this for 6 months. Patient is currently off aspirin and Plavix after stopping at his neurology appointment on March 06. Appreciate consult [facility] cardiology and requested outpatient records. As for his anticoagulation, this was discussed with Dr. Holcomb of Neurology - recommended switching anticoagulation to Lovenox or apixaban as below, okay to hold now for biopsy. Discussed with Dr. Hung of Cardiology-recommends apixaban also, however pt reports this was cost prohibitive in the past--> will brown out for him now and if too costly, plan to go back on Coumadin after pancreas biopsy Appreciate GI consultation--> needs EUS with FNA of mass INR was supratherapeutic and now trending downward with holding coumadin--> INR 1.5 today -continue to hold coumadin for biopsy now planned as outpt for this Sunday at [facility]--> will plan to transfer to [place] on for procedure Necrotic mass - blood cultures NGTD, no indication for antibiotics at present. -CA 19-9 came back significantly elevated at 6756 making pancreatic CA likely -continue pain control -will change frequency of Roxanol today to 15mg po q4h for improved pain control -bowel regimen (2) Pancreatitis: He does not have acute pancreatitis. Abd pain is secondary to Chronic Pancreatitis in setting of possible pancreatic malignancy/pancreatic mass Lipase remains elevated despite IVFs, bowel rest and will likely remain that way due to mass Patient is a poor historian however reports pain is intermittent and ongoing for the last month and he came to the ER as it just has not improved over the last month rather than it becoming much worse. Previous hospitalist discussed with Dr Ramires of Radiology and confirmed no imaging evidence of pancreatitis, much more convincing diagnosis of pancreatic cancer. -have since dcd the IVFs -continue pain control -ok to continue low fat diet (3) CVA (cerebral vascular accident): Recent history of multiple bilateral strokes thought to be cardioembolic in 01/2019 Loop recorder - no atrial fibrillation events Suspected hypercoagulable state due to cancer Was on warfarin prior to admission and was not having his INR checked at all since discharge 2 months ago. INR was >6 on arrival here- would prefer Lovenox if cancer diagnosis, or apixaban, however he has no part D drug plan and these are quite costly to him. Likely will need to go back on Coumadin with close outpatient monitoring of INR CT head this admission shows no acute changes. TSH 1.13. -he has not been on ASA, Plavix since 03/06/19, but could be restarted on Coumadin + ASA after pancreatic mass biopsy (4) Hyperlipidemia: Continue atorvastatin 80 mg p.o. daily (5) DM type 2 (diabetes mellitus, type 2): HbA1c 9.8. Consulted glycemic pharmacy control. Given his extensive comorbid disease would recommend he is not discharged on linagliptin or glyburide especially as his suspected pancreatic cancer progresses he will likely be insulin-dependent. -will plan for insulin upon discharge with lantus/Novolog (6) HTN (hypertension): Hypertensive urgency on admission. BPs now improved with increasing amlodipine dose to 10mg and increasing olmesartan to 40mg daily -continue increased dose of amlodipine to 10mg daily -continue same metoprolol tartrate 12.5mg po bid-cannot titrate up due to low HR -continue increased dose of olmesartan 40mg daily (7) Hypertensive crisis: As above, now resolved (8) Coronary artery disease: Not on asa or plavix as recently stopped by neurology, will restart ASA along with DOAC after biopsy as per Cardiology recommendation Continue statin. History of stents but is remote from that Under [facility] Cardiology (Gertrude Ndiaye) as per GI note Cardiology consult placed as loop recorder previously placed by Dr Hung. APpreciate consult -continue metoprolol -restart ASA 81mg daily along with Coumadin after pancreatic mass biopsy when safe (9) Status post transcatheter aortic valve replacement: Consulted cardiology to determine antiplatelets required -recommends ok to STOP DAPT as has been 6 months since surgery and is now on anticoagulation, but could restart ASA OR Plavix along with Coumadin after pancreatic mass biopsy (10) Alcohol use disorder: Patient denies ongoing alcohol use since his CVA in Jan 2019. He reports no alcohol intake since his January admission. Vit B1 levels normal in Jan, no need for replacement (11) Liver lesion: seen on imaging, could be mets? (12) Elevated LFTs: secondary to liver lesions seen on imaging, could be mets? Not significantly elevated but will monitor (13) Constipation: secondary to opioid use -continue Miralax, senna, docusate -add on Mag citrate bottle (14) DVT prophylaxis: PT/INR daily. Previous coumadin use Dispo-remain hospitalized (15) Discharge planning issues: Plan is now for transfer to [facility] on for procedure on Sunday. Can be discharged to home from there. He now thinks he can get someone to pick him up from [facility] after the procedure on Sunday Case Management involved Subjective Pt reports some abd pain, maybe a little better than previous but feels the pain medicine wears off too soon. Denies nausea or vomiting. Still no BM. Denies CP or SOB. Review of Systems Review of Systems: All systems reviewed & are unremarkable except as noted in HPI & below Physical Exam Constitutional: WD/WN, vitals as above Eyes: + anicteric sclerae Neck: trachea midline, no thyromegaly Respiratory: normal respiratory effort, lungs clear to auscultation Cardiovascular: RRR, no murmur, no edema Chest (Breasts): Chest: normal inspection of chest Gastrointestinal (Abdomen): Inspection/Auscultation: abdomen normal to inspection and normal bowel sounds; abdomen not distended Percussion/Palpation: + abdomen tender (mild, in epigastric region, no guarding or rebound) and abdomen soft Musculoskeletal: Extremities: extremities normal to inspection; no cyanosis and no clubbing Skin: no rashes, warm and dry Neurologic: moves all extremities and awake; no focal motor deficits Psychiatric: A+Ox3, euthymic affect Lymphatic: no lymphedema Results & Data Vital Signs (Past 12 Hours) Vital Signs Temp Pulse Resp BP Pulse Ox 04/02/19 15:17 36.8 C 57 L 18 153/84 H 97 04/02/19 06:14 36.8 C 65 19 168/75 H 97 Laboratory Results 04/02/19 04/02/19 04/02/19 Range/Units 16:33 12:06 08:12 PT (9.0-12.0) Seconds INR (0.9-1.1) Sodium (136-145) mmol/L Potassium (3.5-5.1) mmol/L Chloride (98-107) mmol/L Carbon Dioxide (21-32) mmol/L Anion Gap (3-11) BUN (7-18) mg/dl Creatinine (0.6-1.4) mg/dl Est Cr Clr Drug Dosing ml/min Est GFR ( Amer) Est GFR (Non-Af Amer) BUN/Creatinine Ratio (10-20) Glucose (70-99) mg/dl POC Glucose 134 H 251 H 156 H (70-99) Calcium (8.5-10.1) mg/dl Magnesium (1.8-2.4) mg/dl Total Bilirubin (0.2-1) mg/dl Direct Bilirubin (0-0.2) mg/dl AST (15-37) U/L ALT (12-78) U/L Alkaline Phosphatase (45-117) U/L Total Protein (6.4-8.2) gm/dl Albumin (3.4-5.0) gm/dl CA 19-9 Antigen (<34) U/mL 04/02/19 04/02/19 04/01/19 Range/Units 05:16 05:16 20:10 PT 14.6 H (9.0-12.0) Seconds INR 1.5 H (0.9-1.1) Sodium 136 (136-145) mmol/L Potassium 4.3 (3.5-5.1) mmol/L Chloride 105 (98-107) mmol/L Carbon Dioxide 26 (21-32) mmol/L Anion Gap 5.0 (3-11) BUN 20 H (7-18) mg/dl Creatinine 1.10 (0.6-1.4) mg/dl Est Cr Clr Drug Dosing 68.9 ml/min Est GFR ( Amer) 81.2 Est GFR (Non-Af Amer) 70.1 BUN/Creatinine Ratio 18.6 (10-20) Glucose 166 H (70-99) mg/dl POC Glucose 169 H (70-99) Calcium 9.6 (8.5-10.1) mg/dl Magnesium 1.5 L (1.8-2.4) mg/dl Total Bilirubin 2.0 H (0.2-1) mg/dl Direct Bilirubin 0.3 H (0-0.2) mg/dl AST 22 (15-37) U/L ALT 32 (12-78) U/L Alkaline Phosphatase 130 H (45-117) U/L Total Protein 7.0 (6.4-8.2) gm/dl Albumin 3.4 (3.4-5.0) gm/dl CA 19-9 Antigen (<34) U/mL 04/01/19 03/29/19 Range/Units 16:47 10:14 PT (9.0-12.0) Seconds INR (0.9-1.1) Sodium (136-145) mmol/L Potassium (3.5-5.1) mmol/L Chloride (98-107) mmol/L Carbon Dioxide (21-32) mmol/L Anion Gap (3-11) BUN (7-18) mg/dl Creatinine (0.6-1.4) mg/dl Est Cr Clr Drug Dosing ml/min Est GFR ( Amer) Est GFR (Non-Af Amer) BUN/Creatinine Ratio (10-20) Glucose (70-99) mg/dl POC Glucose 156 H (70-99) Calcium (8.5-10.1) mg/dl Magnesium (1.8-2.4) mg/dl Total Bilirubin (0.2-1) mg/dl Direct Bilirubin (0-0.2) mg/dl AST (15-37) U/L ALT (12-78) U/L Alkaline Phosphatase (45-117) U/L Total Protein (6.4-8.2) gm/dl Albumin (3.4-5.0) gm/dl CA 19-9 Antigen 6756 H (<34) U/mL PG Care Time/CCT Total # of Minutes Spent Total Time Spent with Patient: Total time spent is greater than 50% in coordination of care (as documented) at patient's floor/unit and/or counseling patient: (1) Pancreatitis Acute pancreatitis complication: unspecified Chronicity: acute Pancreatitis type: unspecified pancreatitis type Qualified Code(s): K85.90 - Acute pancreatitis without necrosis or infection, unspecified (2) CVA (cerebral vascular accident) CVA mechanism: unspecified Qualified Code(s): I63.9 - Cerebral infarction, unspecified (3) Hyperlipidemia Hyperlipidemia type: unspecified Qualified Code(s): E78.5 - Hyperlipidemia, unspecified (4) DM type 2 (diabetes mellitus, type 2) 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 transplanted heart: [place] heart Associated angina: without angina Qualified Code(s): I25.10 - Atherosclerotic heart disease of [place] coronary artery without angina pectoris
[2019-04-02] MEDS: DOCUSATE SODIUM/SENNA 50/8.6MG TAB PO SCH (20:11)
[2019-04-03 06:05] LABS: Basophils # (auto) 0.06 K/uL (0-0.2); Basophils % (auto) 0.7 %; Eosinophils # (auto) 0.14 K/uL (0-0.5); Eosinophils % (auto) 1.6 %; Hematocrit (blood only) 35.4 % (42-52); Hemoglobin 12.2 g/dL (14.0-18.0); Immature Granulocytes # (auto) 0.03 K/uL (0.00-0.02); Immature Granulocytes % (auto) 0.3 %; Lymphocytes # (auto) 2.21 K/uL (1.2-3.4); Lymphocytes % (auto) 24.6 %; Mean Corpuscular Hemoglobin 29.8 pg (25-34); Mean Corpuscular Hgb Conc 34.5 g/dL (32-36); Mean Corpuscular Volume 86.6 fL (80-100); Mean Platelet Volume 10.8 fL (7.4-10.4); Monocytes # (auto) 0.94 K/uL (0.11-0.59); Monocytes % (auto) 10.5 %; Neutrophils # (auto) 5.59 K/uL (1.4-6.5); Neutrophils % (auto) 62.3 %; Platelet Count 137 K/uL (130-400); RDW Coefficient of Variation 13.7 % (11.5-14.5); RDW Standard Deviation 43.1 fL (36.4-46.3); Red Blood Count 4.09 M/uL (4.7-6.1); White Blood Count 8.97 K/uL (4.8-10.8)
[2019-04-03 06:14] LABS: INR 1.3 (0.9-1.1)
[2019-04-03 06:43] LABS: Albumin Level 3.3 gm/dl (3.4-5.0); BUN Creatinine Ratio 20.9 (10-20); Bilirubin Direct 0.3 mg/dl (0-0.2); Calcium 9.5 mg/dl (8.5-10.1); Creatinine Clr Calc Pharmacy 68.9 ml/min; Est GFR (African American) 81.2; Est GFR (Non-African American) 70.1; Magnesium 2.2 mg/dl (1.8-2.4); Total Protein 7.1 gm/dl (6.4-8.2)
[2019-04-03] MEDS: METOPROLOL TARTRATE 25 MG TAB PO SCH (08:57)
[2019-04-03] MEDS: FLUOXETINE HCL 10 MG CAP PO SCH (08:58)
[2019-04-03] MEDS: AMLODIPINE BESYLATE 5 MG TAB PO SCH (08:58)
[2019-04-03] MEDS: OLMESARTAN MEDOXOMIL 40 MG TAB PO SCH (08:58)
[2019-04-03] MEDS: ATORVASTATIN 40 MG TAB PO SCH (08:58)
[2019-04-03] MEDS ORDERED: INSULIN GLARGINE SOLOSTAR 100 UNITS/ML 3 ML PEN SC SCH (09:00)
[2019-04-03] MEDS: INSULIN ASPART 100 UNITS/ML 3 ML PEN SC SCH ×3 (09:01→17:28)
[2019-04-03] MEDS: POLYETHYLENE (MIRALAX) 17 GM PACK PO SCH (09:05)
[2019-04-03] MEDS: MoRPHine SULFATE 10 MG/0.5 ML UDP PO PRN ×2 (09:05→18:30)
[2019-04-03] MEDS: MoRPHine SULFATE 5 MG/0.25 ML UDP PO PRN ×2 (09:05→18:31)
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
== END 2019-04-03 19:30 | disposition short-term general hospital (02) | DRG 436 ==
LOC: ED 11:56 → 2S 17:49 → SUATTDRO 17:49 → 2S 18:33 → 4W 04-01 19:17